=== PATIENT | male | born 1985 | race Caucasian/White ===

== ENCOUNTER 2023-09-13 09:55 | Emergency (ER) | payer OTHER, SELFPAY ==
[2023-09-13 09:57] VITALS: BP 131/76
[2023-09-13 10:09] VITALS: BMI 39.9
[2023-09-13 10:35] LABS: COVID-19 Antigen Negative (Negative)
[2023-09-13] MEDS: TORADOL 30 MG IM (10:37)
--- NOTE | 2023-09-13 10:37 | ED.GENMED ---
History of Present Illness
General
Chief Complaint: Cough
Time Seen by Provider: 09/13/23 10:12
Travel History
Have you had any contact with someone who has COVID-19?: No
Do you have any symptoms of coronavirus? Fever > 100 degrees, chills, cough, shortness of breath, sore throat, loss of taste or smell, muscle aches, or headache?: No
History of Present Illness
History of Present Illness:
38-year-old male presents the emergency department for evaluation of chest tightness associated with URI symptoms and sore throat for the past 2 to 3 days. Was seen in urgent care yesterday and started on clindamycin for uvulitis. States his chest
pain seems to be constant no matter what body position he is and denies any pleuritic nature to the pain. No fevers or chills. Denies any shortness of breath or leg swelling.
Past History
Past History
ED Past Medical History: Asthma, GERD, HTN, Hypercholesterolemia, Psychiatric (Anxiety, Depression. Panic attacks) and Other (Obesity, Barrets esophagus, Gastritis, IBS, Cerebral hematoma, DVT)
ED Past Surgical History: Brain and Other (Craniotomy for subdural hematoma)
Patient has exhibited threatening behavior?: No
PSI?: No
Social History
Tobacco: Smoker
Alcohol: Occasional
Drug: Former user (Opiates, cocaine) and Marijuana
Personal: Single
Living: with family
Employment: Employed
Family History
Family History: Diabetes, Hypertension and CAD (Grandmother with triple bypass); Negative Early CAD
Review of Systems
Review of Systems
Allergies reviewed?: Yes
All Other Systems: ROS reviewed and negative except as documented in HPI and ROS
Phy Exam
Physical Exam
Physical Exam:
GEN: Well appearing, NAD, WDWN
Eyes: PERRLA, EOMs intact, no scleral icterus
HENT: NCAT, oral mucosa moist, uvula erythema and edema quite mild
Lungs: CTAB, no wheezes, rales, rhonchi, normal chest wall excursion
Cardiac: RRR, no M/R/G, no peripheral edema. Radial pulses 2+ bilat
Chest: Reproducible tenderness to the sternum diffusely
Neuro: AO x 3, no focal deficits to BUE/BLE, normal sensation throughout
MSK: No gross deformity or ecchymosis. No edema. No digital clubbing
Skin: No rashes, petechiae. Normal color, no pallor or jaundice.
Psych: Calm, cooperative, proper hygiene
Course
Orders/Labs/Results
Orders:
Orders
09/13/23 09:57
EKG [Electrocardiogram (*1)] Urgent
Reason for Study: Chest Pain
EKG- Treatment ONCE
09/13/23 10:08
CR Chest - 2 Views Urgent
Comment:
Reason For Exam: cough
09/13/23 10:14
COVID-19 Antigen Urgent
Source: Nasal Swab
Influenza A+B Rapid Molecular Urgent
JACK Source: Nasal Swab
Specimen Description:
09/13/23 10:31
Ketorolac [Toradol] 30 mg IM NOW STA
Vital Signs
Initial and Last Documented VS:
Initial Vital Signs
Temp Pulse Resp BP Pulse Ox
98.4 F 83 18 131/76 98
09/13/23 09:57 09/13/23 09:57 09/13/23 09:57 09/13/23 09:57 09/13/23 09:57
Last Documented Vital Signs
Temp Pulse Resp BP Pulse Ox
98.4 F 75 18 150/87 95
09/13/23 09:57 09/13/23 11:19 09/13/23 11:19 09/13/23 11:19 09/13/23 11:19
MDM/Problems Addressed
MDM/Problems Addressed:
Patient's exam is unremarkable. He has reproducible chest wall pain and no EKG changes concerning for pericarditis or myocarditis. Chest x-ray shows no evidence for infiltrate. Likely self-limited viral syndrome with inflammatory chest wall pain.
Discussed supportive care
*Critical Care Note
Total Time (30-74mins, 75-104mins- exclusive of procedures): Not Applicable
ED Attending Note
-
Portions of this chart may have been created with voice recognition software.� Occasional wrong word or��sound alike� substitutions may have occurred due to the inherent limitations of voice recognition software.
Discharge Plan
Departure
Patient Disposition: Home (Routine Discharge)
Date of Disposition: 09/13/23
Time of Disposition: 11:26
Patient with high blood pressure during this ER visit?: No
Discharge Problem:
Acute chest wall pain, Viral URI with cough
Instructions: Costochondritis (DC)
Prescriptions:
New
ketorolac 10 mg tablet
10 mg PO Q8H 5 Days Qty: 15 0RF
No Action
hydrochlorothiazide 25 mg Tablet
25 mg PO DAILY Qty: 0
loratadine 10 MG tablet
10 mg PO DAILY
lorazepam 0.5 MG tablet
0.5 mg PO BIDPRN PRN (Reason: anxiety)
Patient Comments:
05/10/23 filled on 05/09/23 #10
irbesartan 300 mg Tablet
300 mg PO DAILY Qty: 0
metoprolol succinate [Toprol XL] 25 mg Tablet Extended Release 24 Hr
25 mg PO BID
fenofibrate nanocrystallized 145 mg Tablet
145 mg PO DAILY
acetaminophen 500 mg Tablet
1,000 mg PO Q6HPRN PRN (Reason: mild pain)
cholecalciferol (vitamin D3) [Vitamin D3] 125 mcg (5,000 unit) Tablet
125 mcg PO DAILY
fluticasone propionate [Flonase Allergy Relief] 50 mcg/actuation spray,suspension
1 spray intranasal DAILY Qty: 16 0RF
famotidine 20 mg Tablet
20 mg PO DAILY
pantoprazole [Protonix] 40 mg Tablet,Delayed Release (Dr/Ec)
40 mg PO DAILY
zinc 50 mg Capsule
50 mg PO DAILY
vilazodone
1 tab PO DAILY
clindamycin HCl [Cleocin HCl] 300 mg capsule
300 mg PO TID
Referrals:
Mathieu Loyd MD [Family Provider] -
Activity Restrictions/Additional Instructions:
Do not take Ibuprofen, naproxen or aspirin while on the ketorolac
Interventions
Interventions:
*Risk Screen - Suicide Last Done: 09/13/23 09:57
*General Assessment Last Done: 09/13/23 09:57
*Neglect/Abuse Screening Last Done: 09/13/23 09:57
*ED COVID-19 Vaccine History Last Done: 09/13/23 10:09
*Nursing Disposition Last Done: 09/13/23 11:47
ED- Pulmonary Assessment Last Done: 09/13/23 10:21
Discharge Date and Time
Discharge Date/Time: 09/13/23 11:48
[2023-09-13 11:19] VITALS: BP 150/87
== END 2023-09-13 11:48 | disposition home or self-care (01) ==
LOC: EMR 09:55
PROVIDERS: EMERGENCY PHYSICIAN Emergency Medicine; FAMILY PHYSICIAN Family Medicine
DX: R07.89 Other chest pain (principal); J06.9 Acute upper respiratory infection, unspecified; R05.9 Cough, unspecified; F17.200 Nicotine dependence, unspecified, uncomplicated; Z11.52 Encounter for screening for COVID-19
CPT/HCPCS: 99285; 96372; 71046; 87502; 87811; 93005

== ENCOUNTER 2023-09-15 15:12 | Emergency (ER) | payer OTHER, SELFPAY ==
[2023-09-15 15:15] VITALS: BP 115/85
[2023-09-15 16:41] VITALS: BP 116/76
--- NOTE | 2023-09-15 16:51 | ED.GENMED ---
History of Present Illness
General
Chief Complaint: Cold/Flu/URI Symptoms
Time Seen by Provider: 09/15/23 16:47
Travel History
Have you had any contact with someone who has COVID-19?: No
Do you have any symptoms of coronavirus? Fever > 100 degrees, chills, cough, shortness of breath, sore throat, loss of taste or smell, muscle aches, or headache?: No
History of Present Illness
History of Present Illness:
HPI: Patient with URI symptoms over the last several days. He was seen here the other day was given Toradol with no improvement. He has neck pain. He has generalized aches. He did have some chest pain earlier which has since improved.
EXAM:
GENERAL: Well appearing in no distress
HEENT: Moist oral mucosa
CARDIOVASCULAR: No murmurs, normal heart rate and rhythm, No chest wall tenderness
PULMONARY: No respiratory distress, breath sounds are clear and equal
ABDOMEN: Soft with no peritoneal signs, no tenderness
NEUROLOGIC: Excellent strength all extremities, no coordination deficits
PSYCHIATRIC: Appropriate mental status, normal insight and judgement
EXTREMITIES: Nontender, no edema, moves all extremities equally
SKIN: No rash, no lesions
ED COURSE:
5:00 PM: I initially evaluated patient
NUMBER AND COMPLEXITY OF PROBLEMS ADDRESSED AT THE ENCOUNTER
� Chronic conditions affecting care: Smoker, Busby's esophagus, GERD, anxiety/depression, has had intracranial hemorrhage
� Acute Exacerbation and/or Progression of Chronic Illness: This is an acute problem
� Differential Diagnosis includes: Viral syndrome, pneumonia unlikely to sats are normal, he is currently afebrile and had a chest x-ray that was relatively unremarkable
AMOUNT AND/OR COMPLEXITY OF DATA TO BE REVIEWED AND ANALYZED
� I performed an independent evaluation of and my interpretation is:
EKG:
CT:
X-rays:
Laboratory Studies: Influenza negative and COVID-negative 1 09/13/2023
Other:
� Review of other/old records: Chest x-ray from 2 days ago was unremarkable
� Clinical information was obtained by an independent historian: None needed
� Prescriptions/Medications Considered but not given:
� Further testing considered but not performed: Considered CT imaging of the brain however the patient has numerous brain CTs of the last several
RISK OF COMPLICATIONS AND/OR MORBIDITY OR MORTALITY OF PATIENT MANAGEMENT
� Social determinants of health affecting care: Lives at home
� Discussion with other providers:
� Escalation of care including admission/observation vs risk of discharge considered: The patient was given fluids and Tylenol. He white count is normal. I reassessed the patient at 7:40 PM. He tells me that Dr. Norirs suggest
that he may have migraines. We talked about maybe trying Reglan however the patient states that he did not tolerate this medication. He states Toradol has not helped him in the past and did not want to try it again. He was given Tylenol earlier.
Will give a very short course of Fioricet. I encouraged him to follow-up with Dr. Sims. His vital signs have remained normal.
Past History
Past History
ED Past Medical History: Asthma, GERD, HTN, Hypercholesterolemia, Psychiatric (Anxiety, Depression. Panic attacks) and Other (Obesity, Barrets esophagus, Gastritis, IBS, Cerebral hematoma, DVT)
ED Past Surgical History: Brain and Other (Craniotomy for subdural hematoma)
Patient has exhibited threatening behavior?: No
PSI?: No
Social History
Tobacco: Smoker
Alcohol: Occasional
Drug: Former user (Opiates, cocaine) and Marijuana
Personal: Single
Living: with family
Employment: Employed
Family History
Family History: Diabetes, Hypertension and CAD (Grandmother with triple bypass); Negative Early CAD
Phy Exam
Physical Exam
Physical Exam:
See HPI
Course
Orders/Labs/Results
Orders:
Orders
09/15/23 16:49
Comprehensive Metabolic Panel Urgent
09/15/23 16:50
Complete Blood Count/With Diff Urgent
09/15/23 17:22
0.9% Sodium Chloride 1000 ml [Nss] 1,000 ml IV BOLUS
09/15/23 17:23
Acetaminophen [Tylenol] 1,000 mg PO NOW STA
Abnormal Lab Results
09/15/23 09/15/23
16:49 16:50
MPV 10.7 H fL
(7.4-10.4)
Absolute Monos (auto) 0.8 H 10^3/uL
(0.1-0.6)
Monocytes % 9.4 H %
(1.7-9.3)
Glucose 113 H mg/dl
(70-99)
09/15/23 16:50
09/15/23 16:49
Vital Signs
Initial and Last Documented VS:
Initial Vital Signs
Temp Pulse Resp BP Pulse Ox
98.0 F 86 16 115/85 99
09/15/23 15:15 09/15/23 15:15 09/15/23 15:15 09/15/23 15:15 09/15/23 15:15
Last Documented Vital Signs
Temp Pulse Resp BP Pulse Ox
98.0 F 71 13 127/79 94
09/15/23 15:15 09/15/23 19:00 09/15/23 19:00 09/15/23 19:00 09/15/23 19:00
*Critical Care Note
Total Time (30-74mins, 75-104mins- exclusive of procedures): Not Applicable
ED Attending Note
-
Portions of this chart may have been created with voice recognition software.� Occasional wrong word or��sound alike� substitutions may have occurred due to the inherent limitations of voice recognition software.
Discharge Plan
Departure
Patient Disposition: Home (Routine Discharge)
Date of Disposition: 09/15/23
Time of Disposition: 19:41
Patient with high blood pressure during this ER visit?: Yes
Discharge Problem:
Headache
Instructions: Headache, Adult (DC)
Prescriptions:
New
ytlxrcssbu-ckkuglfvkveyt-qjls [Fioricet] 50-300-40 mg capsule
1 cap PO Q8H PRN (Reason: Pain) Qty: 10 0RF
No Action
hydrochlorothiazide 25 mg Tablet
25 mg PO DAILY Qty: 0
loratadine 10 MG tablet
10 mg PO DAILY
lorazepam 0.5 MG tablet
0.5 mg PO BIDPRN PRN (Reason: anxiety)
Patient Comments:
05/10/23 filled on 05/09/23 #10
irbesartan 300 mg Tablet
300 mg PO DAILY Qty: 0
metoprolol succinate [Toprol XL] 25 mg Tablet Extended Release 24 Hr
25 mg PO BID
fenofibrate nanocrystallized 145 mg Tablet
145 mg PO DAILY
acetaminophen 500 mg Tablet
1,000 mg PO Q6HPRN PRN (Reason: mild pain)
cholecalciferol (vitamin D3) [Vitamin D3] 125 mcg (5,000 unit) Tablet
125 mcg PO DAILY
fluticasone propionate [Flonase Allergy Relief] 50 mcg/actuation spray,suspension
1 spray intranasal DAILY Qty: 16 0RF
famotidine 20 mg Tablet
20 mg PO DAILY
pantoprazole [Protonix] 40 mg Tablet,Delayed Release (Dr/Ec)
40 mg PO DAILY
zinc 50 mg Capsule
50 mg PO DAILY
vilazodone
1 tab PO DAILY
clindamycin HCl [Cleocin HCl] 300 mg capsule
300 mg PO TID
ketorolac 10 mg tablet
10 mg PO Q8H 5 Days Qty: 15 0RF
Referrals:
Dwight Sims MD [Active] - Follow up in 5-7 days
Mathieu Loyd MD [Family Provider] -
Activity Restrictions/Additional Instructions:
I recommend you follow with Dr. Sims. Your blood work tonight is normal. Your vital signs are normal.
Interventions
Interventions:
*Risk Screen - Suicide Last Done: 09/15/23 16:51
*General Assessment Last Done: 09/15/23 16:51
*Neglect/Abuse Screening Last Done: 09/15/23 16:51
*ED COVID-19 Vaccine History Last Done: 09/15/23 15:15
ED- Pulmonary Assessment Last Done: 09/15/23 16:52
[2023-09-15 17:00] VITALS: BP 118/83
[2023-09-15 17:06] LABS: % Basophils 0.6 % (0-2); % Eosinophils 2.6 % (0-6); % Immature Granulocytes 0.4 % (0-0.5); % Lymphocytes 29.4 % (20.5-51.1); % Monocytes 9.4 % (1.7-9.3); % Neutrophils 57.6 % (42.2-75.2); Absolute Basophils 0.1 10^3/uL (0-0.2); Absolute Eosinophils 0.2 10^3/uL (0-0.7); Absolute Lymphocytes 2.5 10^3/uL (1.2-3.4); Absolute Monocytes 0.8 10^3/uL (0.1-0.6); Absolute Neutrophils 4.9 10^3/uL (1.4-6.5); Hematocrit 42.6 % (39.0-52.0); Hemoglobin 14.9 g/dL (13.0-18.0); Mean Corpuscular Hgb 30.4 pg (27.0-31.0); Mean Corpuscular Volume 86.9 fL (80.0-94.0); Mean Platelet Volume 10.7 fL (7.4-10.4); Nucleated Red Blood Cells % 0 % (-); Platelet Count 223 10^3/uL (130-400); Red Cell Dist. Width 13.2 % (11.5-14.5); White Blood Cell Count 8.5 10^3/uL (4.8-10.8)
[2023-09-15 17:21] LABS: ALT (SGPT) 20 U/L (0-50); AST (SGOT) 20 U/L (17-59); Albumin 4.5 g/dl (3.5-5.0); Alkaline Phosphatase 51 U/L (38-126); Blood Urea Nitrogen 14 mg/dl (9-20); Calcium 9.9 mg/dl (8.4-10.2); Carbon Dioxide 27 mmol/L (22-30); Chloride 105 mmol/L (98-107); Glucose 113 mg/dl (70-99); Sodium 136 mmol/L (135-145); Total Bilirubin 0.6 mg/dl (0.2-1.3); Total Protein 7.1 g/dl (6.3-8.2); eGFR > 60.00
[2023-09-15 17:24] LABS: Potassium 3.9 mmol/L (3.5-5.1)
[2023-09-15] MEDS: TYLENOL 1000 MG PO (17:40)
[2023-09-15] MEDS: NSS 1000 IV (17:41)
[2023-09-15 18:00] VITALS: BP 127/79
[2023-09-15 19:00] VITALS: BP 127/79
== END 2023-09-15 20:00 | disposition home or self-care (01) ==
LOC: EMR 15:12
PROVIDERS: EMERGENCY PHYSICIAN Emergency Medicine; FAMILY PHYSICIAN Family Medicine
DX: R51.9 Headache, unspecified (principal); R07.89 Other chest pain; E66.9 Obesity, unspecified; E78.00 Pure hypercholesterolemia, unspecified; F32.A Depression, unspecified; F41.9 Anxiety disorder, unspecified; I10 Essential (primary) hypertension; J45.909 Unspecified asthma, uncomplicated; K21.9 Gastro-esophageal reflux disease without esophagitis; K58.9 Irritable bowel syndrome, unspecified; F17.200 Nicotine dependence, unspecified, uncomplicated; Z82.49 Family history of ischemic heart disease and other diseases of the circulatory system; Z83.3 Family history of diabetes mellitus; Z86.718 Personal history of other venous thrombosis and embolism; Z87.19 Personal history of other diseases of the digestive system
CPT/HCPCS: 99283; 96360; 80053; 85025

== ENCOUNTER → 2023-10-18 07:37 | Outpatient (REF) | payer OTHER, SELFPAY ==
--- NOTE | 2023-10-18 13:18 | EEG.RPT ---
Electroencephalogram Report
Recording
Date of EE10/18/23
Type of EEG: Routine
Length of EEG recordin minutes
Done with Video Recording: Yes
Patient Status: Outpatient
Recording Conditions: Awake, Drowsy and Asleep
Hyperventilation Performed: Yes
Photic Stimulation Performed: Yes
Report
GREATER THAN 1 HOUR EEG REPORT
EEG INTERPRETATION:
Unremarkable EEG for age
CLINICAL CORRELATION:
A normal EEG does not rule out a diagnosis of epilepsy. If clinical suspicion for seizure persists, a prolonged recording may be warranted.
Clinical correlation is advised.
METHODS:
A 21 channel digitized electroencephalogram (EEG) was performed in the [facility]. The 10/20 international system of electrode placement was used with ECG and lateral/vertical eye movements recorded. Persyst quantitative EEG
analysis was performed.
ELECTROENCEPHALOGRAPHER IMPRESSION(S):
Quality of study
Good
Background
Unremarkable, well maintained, medium amplitude alpha-frequency and unremarkable anterior-posterior voltage gradient
With eye opening the background activity changed to a low voltage mixture of frequencies.
Sleep
Drowsiness present
Stage 1 and 2 sleep recorded
Hyperventilation
Did not activate the record
Photic Stimulation
Did not activate the record
ECG
Normal sinus rhythm
== END ==
LOC: RCS 07:37
PROVIDERS: ATTENDING PHYSICIAN Nurse Practitioner Adult Health; FAMILY PHYSICIAN Family Medicine
DX: J01.81 Other acute recurrent sinusitis (principal); R20.0 Anesthesia of skin; R20.9 Unspecified disturbances of skin sensation; R47.89 Other speech disturbances
CPT/HCPCS: 70486; 95813; 95886; 95913

== ENCOUNTER 2023-10-27 11:36 | Emergency (ER) | payer OTHER, SELFPAY ==
[2023-10-27] VITALS (7 sets, daily range): BP systolic 120–145; BP diastolic 64–88; BMI 40.8
[2023-10-27 12:13] LABS: % Basophils 0.7 % (0-2); % Eosinophils 2.5 % (0-6); % Immature Granulocytes 0.5 % (0-0.5); % Lymphocytes 21.7 % (20.5-51.1); % Monocytes 8.1 % (1.7-9.3); % Neutrophils 66.5 % (42.2-75.2); Absolute Basophils 0.1 10^3/uL (0-0.2); Absolute Eosinophils 0.2 10^3/uL (0-0.7); Absolute Lymphocytes 1.9 10^3/uL (1.2-3.4); Absolute Monocytes 0.7 10^3/uL (0.1-0.6); Absolute Neutrophils 5.8 10^3/uL (1.4-6.5); Hematocrit 40.9 % (39.0-52.0); Hemoglobin 14.5 g/dL (13.0-18.0); Mean Corp Hgb Conc. 35.5 g/dL (33.0-37.0); Mean Corpuscular Hgb 30.1 pg (27.0-31.0); Mean Platelet Volume 10.3 fL (7.4-10.4); Nucleated Red Blood Cells % 0 % (-); Platelet Count 224 10^3/uL (130-400); Red Blood Cell Count 4.81 10^6/uL (4.70-6.10); Red Cell Dist. Width 13.2 % (11.5-14.5); White Blood Cell Count 8.8 10^3/uL (4.8-10.8)
--- NOTE | 2023-10-27 12:28 | ED.GENMED ---
History of Present Illness
<Cristian Quijano DO - Last Filed: 10/30/23 23:20>
General
Chief Complaint: Chest Pain
Source: patient and spouse
Exam Limitations: none
Time Seen by Provider: 10/27/23 11:53
Nursing documentation reviewed up to this point in time: agreed with
Travel History
Have you had any contact with someone who has COVID-19?: No
Do you have any symptoms of coronavirus? Fever > 100 degrees, chills, cough, shortness of breath, sore throat, loss of taste or smell, muscle aches, or headache?: No
History of Present Illness
History of Present Illness:
38-year-old male presents emergency department complaining of mid to lower chest pain rating to his back. He gets heartburn frequently, but then he drank water and began to cough and developed worse pain. He still has some pain that is
dissipating. He took 2x 81 mg aspirins.
Past History
<Cristian Quijano, DO - Last Filed: 10/30/23 23:20>
Past History
ED Past Medical History: Asthma, GERD, HTN, Hypercholesterolemia, Psychiatric (Anxiety, Depression. Panic attacks) and Other (Obesity, Barrets esophagus, Gastritis, IBS, Cerebral hematoma, DVT)
ED Past Surgical History: Brain, Cardiac (Cardiac catheterization 2 years ago that was normal) and Other (Craniotomy for subdural hematoma)
Patient has exhibited threatening behavior?: No
PSI?: No
Social History
Tobacco: Smoker
Alcohol: Occasional
Drug: Former user (Opiates, cocaine) and Marijuana
Personal: Single
Living: with family
Employment: Employed
Family History
Family History: Diabetes, Hypertension and CAD (Grandmother with triple bypass); Negative Early CAD
Review of Systems
<DO Wolf El Last Filed: 10/30/23 23:20>
Review of Systems
Allergies reviewed?: Yes
All Other Systems: Not applicable
Constitutional: Reports no symptoms
EENT: Reports no symptoms
Respiratory: Reports no symptoms
Cardiac: Reports chest pain
ABD/GI: Reports no symptoms
: Reports no symptoms
Musculoskeletal: Reports no symptoms
Skin: Reports no symptoms
Neurological: Reports no symptoms
Endocrine: Reports no symptoms
Hematologic/Lymphatic: Reports no symptoms
Psychiatric: Reports no symptoms
Phy Exam
<Cristian Quijano, DO - Last Filed: 10/30/23 23:20>
Physical Exam
Physical Exam:
Physical Exam
General: no apparent distress, not acutely ill
Neck: supple. no meningeal signs. normal posterior pharynx
Heart: s1/s2 regular rate and rhythm, no murmur. equal radial
pulses.
HEENT: Pupils equal round reactive to light, EOMI
Lungs: no acute respiratory distress. clear bilaterally
Abdomen: normal bowel sounds. not tender. no CVAT
Neuro: alert and oriented. no focal neurological deficits cranial nerves II through XII intact
Skin: no rash
Psychiatric: well kept. interactive and cooperative
Extremities: no edema. no calf tenderness. negative homans. good distal pulses
Scores
<Cristian Quijano, DO - Last Filed: 10/30/23 23:20>
Heart Score for Chest Pain Patients
Heart Score for Chest Pain Patients: 0
Heart Score Risk: 2.5% MACE over next 6 weeks
<Sathya Robison, DO - Last Filed: 10/27/23 23:33>
Heart Score for Chest Pain Patients
STEMI patient?: No
History: Slightly or Non-Suspicious
ECG: Normal
Age: </= 45 years
Risk Factors: No Risk Factors
Troponin: </= Normal Limit
Heart Score for Chest Pain Patients: 0
Heart Score Risk: 2.5% MACE over next 6 weeks
Course
<Cristian Quijano, DO - Last Filed: 10/30/23 23:20>
Orders/Labs/Results
Orders:
Orders
10/27/23 11:38
Electrocardiogram (*1) Urgent
Reason for Study: Chest Pain
EKG- Treatment ONCE
10/27/23 11:54
Complete Blood Count/With Diff Urgent
Comprehensive Metabolic Panel Urgent
Troponin I Urgent
10/27/23 15:02
EKG [Electrocardiogram (*1)] Urgent
Reason for Study: Chest Pain
10/27/23 15:03
EKG- Treatment ONCE
10/27/23 15:06
Troponin I Urgent
10/27/23 15:12
Acetaminophen [Tylenol] 650 mg .ROUTE .STK-MED ONE
10/27/23 15:22
Acetaminophen [Tylenol] 650 mg PO NOW STA
Abnormal Lab Results
10/27/23
11:54
Absolute Monos (auto) 0.7 H 10^3/uL
(0.1-0.6)
Glucose 165 H mg/dl
(70-99)
10/27/23 11:54
10/27/23 11:54
Vital Signs
Initial and Last Documented VS:
Initial Vital Signs
Temp
98.2 F
10/27/23 11:40
Last Documented Vital Signs
Temp Pulse Resp BP Pulse Ox
98.2 F 83 18 120/64 95
10/27/23 11:40 10/27/23 17:17 10/27/23 17:23 10/27/23 17:17 10/27/23 17:23
<Sathya Robison DO - Last Filed: 10/27/23 23:33>
Orders/Labs/Results
Orders:
Orders
10/27/23 11:38
Electrocardiogram (*1) Urgent
Reason for Study: Chest Pain
EKG- Treatment ONCE
10/27/23 11:54
Complete Blood Count/With Diff Urgent
Comprehensive Metabolic Panel Urgent
Troponin I Urgent
10/27/23 15:02
EKG [Electrocardiogram (*1)] Urgent
Reason for Study: Chest Pain
10/27/23 15:03
EKG- Treatment ONCE
10/27/23 15:06
Troponin I Urgent
10/27/23 15:12
Acetaminophen [Tylenol] 650 mg .ROUTE .STK-MED ONE
10/27/23 15:22
Acetaminophen [Tylenol] 650 mg PO NOW STA
Abnormal Lab Results
10/27/23
11:54
Absolute Monos (auto) 0.7 H 10^3/uL
(0.1-0.6)
Glucose 165 H mg/dl
(70-99)
10/27/23 11:54
10/27/23 11:54
Vital Signs
Initial and Last Documented VS:
Initial Vital Signs
Temp
98.2 F
10/27/23 11:40
Last Documented Vital Signs
Temp Pulse Resp BP Pulse Ox
98.2 F 83 18 120/64 95
10/27/23 11:40 10/27/23 17:17 10/27/23 17:23 10/27/23 17:17 10/27/23 17:23
<Cristian Quijano, DO - Last Filed: 10/30/23 23:20>
MDM/Problems Addressed
Differential Diagnosis Includes:
ACS, PE
MDM/Problems Addressed:
38-year-old male with chest pain, unclear etiology. Troponins negative, stable for discharge. Do not suspect PE
Chronic conditions affecting care: Other (TBI)
Acute Exacerbation and/or Progression of Chronic Illness: Other (tBI)
<Cristian Quijano, DO - Last Filed: 10/30/23 23:20>
*Pulse Oximetry
Patient hypoxic: no
*EKG
Interpreted by ED Provider?: Yes
EKG Intrepretation Date: 10/27/23
EKG Intrepretation Time: 11:59
Interpretation: normal
Comparison EKG: no changes
Heart Rate: 76
Rate: normal
Rhythm: sinus
[place]: normal axis
Interval: normal interval
QRS Pattern: normal QRS
Ischemia: no ischemia
*Armored Car Guard Interpretation
Rate: Armored Car Guard- N/A
<Sathya Robison, DO - Last Filed: 10/27/23 23:33>
*Critical Care Note
Total Time (30-74mins, 75-104mins- exclusive of procedures): Not Applicable
ED Attending Note
<Cristian Quijano, DO - Last Filed: 10/30/23 23:20>
-
Portions of this chart may have been created with voice recognition software.� Occasional wrong word or��sound alike� substitutions may have occurred due to the inherent limitations of voice recognition software.
Discharge Plan
Departure
Patient Disposition: Home (Routine Discharge)
Date of Disposition: 10/27/23
Time of Disposition: 16:40
Patient with high blood pressure during this ER visit?: Yes
Covid-19: Not Applicable
Discharge Problem:
Chest pain
Instructions: Chest Pain PCP Follow Up
Prescriptions:
No Action
hydrochlorothiazide 25 mg Tablet
25 mg PO DAILY Qty: 0
loratadine 10 MG tablet
10 mg PO DAILY
lorazepam 0.5 MG tablet
0.5 mg PO BIDPRN PRN (Reason: anxiety)
Patient Comments:
05/10/23 filled on 05/09/23 #10
irbesartan 300 mg Tablet
300 mg PO DAILY Qty: 0
metoprolol succinate [Toprol XL] 25 mg Tablet Extended Release 24 Hr
25 mg PO BID
fenofibrate nanocrystallized 145 mg Tablet
145 mg PO DAILY
acetaminophen 500 mg Tablet
1,000 mg PO Q6HPRN PRN (Reason: mild pain)
cholecalciferol (vitamin D3) [Vitamin D3] 125 mcg (5,000 unit) Tablet
125 mcg PO DAILY
fluticasone propionate [Flonase Allergy Relief] 50 mcg/actuation spray,suspension
1 spray intranasal DAILY Qty: 16 0RF
famotidine 20 mg Tablet
20 mg PO DAILY
pantoprazole [Protonix] 40 mg Tablet,Delayed Release (Dr/Ec)
40 mg PO DAILY
zinc 50 mg Capsule
50 mg PO DAILY
vilazodone
1 tab PO DAILY
clindamycin HCl [Cleocin HCl] 300 mg capsule
300 mg PO TID
ketorolac 10 mg tablet
10 mg PO Q8H 5 Days Qty: 15 0RF
dnrapjtvtj-rmombrbgzfqqy-irjw [Fioricet] 50-300-40 mg capsule
1 cap PO Q8H PRN (Reason: Pain) Qty: 10 0RF
Referrals:
Mathieu Loyd MD [Family Provider] - Next open appointment
Interventions
Interventions:
*Risk Screen - Suicide Last Done: 10/27/23 11:40
*General Assessment Last Done: 10/27/23 11:40
*Neglect/Abuse Screening Last Done: 10/27/23 11:40
ED- Fall Risk Assessment Last Done: 10/27/23 15:39
*ED COVID-19 Vaccine History Last Done: 10/27/23 11:40
*Nursing Disposition Last Done: 10/27/23 17:24
ED- Cardiac Assessment Last Done: 10/27/23 15:39
Discharge Date and Time
Discharge Date/Time: 10/27/23 17:24
Print Language: ROMANIAN
[2023-10-27 12:31] LABS: ALT (SGPT) 17 U/L (0-50); AST (SGOT) 19 U/L (17-59); Albumin 4.3 g/dl (3.5-5.0); Alkaline Phosphatase 46 U/L (38-126); Blood Urea Nitrogen 15 mg/dl (9-20); Calcium 9.7 mg/dl (8.4-10.2); Carbon Dioxide 27 mmol/L (22-30); Chloride 101 mmol/L (98-107); Estimated Creatinine Clearance > 125 ml/min; Glucose 165 mg/dl (70-99); Sodium 136 mmol/L (135-145); Total Bilirubin 0.7 mg/dl (0.2-1.3); Total Protein 6.5 g/dl (6.3-8.2); eGFR > 60.00
[2023-10-27 12:35] LABS: Troponin I < 0.012 ng/ml
[2023-10-27] MEDS: TYLENOL 650 MG PO (15:22)
[2023-10-27 15:46] LABS: Troponin I < 0.012 ng/ml
== END 2023-10-27 17:24 | disposition home or self-care (01) ==
LOC: EMR 11:36
PROVIDERS: EMERGENCY PHYSICIAN Emergency Medicine; FAMILY PHYSICIAN Family Medicine
DX: R07.89 Other chest pain (principal); R05.9 Cough, unspecified; I10 Essential (primary) hypertension; E78.00 Pure hypercholesterolemia, unspecified; K21.9 Gastro-esophageal reflux disease without esophagitis; J45.909 Unspecified asthma, uncomplicated; E11.9 Type 2 diabetes mellitus without complications; F41.9 Anxiety disorder, unspecified; F32.A Depression, unspecified; F41.0 Panic disorder [episodic paroxysmal anxiety]; K58.9 Irritable bowel syndrome, unspecified; K22.70 Barrett's esophagus without dysplasia; F17.210 Nicotine dependence, cigarettes, uncomplicated; Z86.718 Personal history of other venous thrombosis and embolism; Z88.6 Allergy status to analgesic agent; Z88.1 Allergy status to other antibiotic agents; Z88.0 Allergy status to penicillin; Z88.2 Allergy status to sulfonamides
CPT/HCPCS: 99284; 80053; 84484; 85025; 93005

== ENCOUNTER 2023-11-25 21:57 | Emergency (ER) | payer OTHER, SELFPAY ==
[2023-11-25 22:01] VITALS: BP 132/82
--- NOTE | 2023-11-26 02:04 | ED.GENMED ---
History of Present Illness
<Sumanth Wren DO - Last Filed: 11/26/23 04:18>
General
Chief Complaint: Dental Problem
Time Seen by Provider: 11/26/23 02:04
<ELLEN Kovacs - Last Filed: 11/26/23 06:03>
General
Source: patient
Exam Limitations: none
Travel History
Have you had any contact with someone who has COVID-19?: No
Do you have any symptoms of coronavirus? Fever > 100 degrees, chills, cough, shortness of breath, sore throat, loss of taste or smell, muscle aches, or headache?: No
History of Present Illness
History of Present Illness:
This is a 38-year-old male presenting for right upper molar pain. He was seen by his dentist recently and started on clindamycin 150mg bid. He is scheduled to have his tooth removed tomorrow but has been experiencing increasing jaw pain which
radiates to his upper face he denies nausea vomiting fever, and chills.
Past History
<ELLEN Kovacs - Last Filed: 11/26/23 06:03>
Past History
ED Past Medical History: Asthma, GERD, HTN, Hypercholesterolemia, Psychiatric (Anxiety, Depression. Panic attacks) and Other (Obesity, Barrets esophagus, Gastritis, IBS, Cerebral hematoma, DVT)
ED Past Surgical History: Brain, Cardiac (Cardiac catheterization 2 years ago that was normal) and Other (Craniotomy for subdural hematoma)
Patient has exhibited threatening behavior?: No
PSI?: No
Social History
Tobacco: Smoker
Alcohol: Occasional
Drug: Former user (Opiates, cocaine) and Marijuana
Personal: Single
Living: with family
Employment: Employed
Family History
Family History: Diabetes, Hypertension and CAD (Grandmother with triple bypass); Negative Early CAD
Review of Systems
<ELLEN Kovacs - Last Filed: 11/26/23 06:03>
Review of Systems
Allergies reviewed?: Yes
Constitutional: Reports no symptoms
EENT: Reports mouth pain
Respiratory: Reports no symptoms
Cardiac: Reports no symptoms
ABD/GI: Reports no symptoms
Skin: Reports no symptoms
Phy Exam
<Ritesh Campbell [facility] - Last Filed: 11/26/23 06:03>
General Physical Exam
General Presentation: well appearing
General age: appears stated age
General Skin: warm and dry
General Habitus: normal
General Mental: alert
Pulmonary Exam
Pulmonary Exam: lungs clear and no respiratory distress
Neurological Exam
Neurological Exam: alert and oriented x3
Course
<Sumanth Wren DO - Last Filed: 11/26/23 04:18>
Orders/Labs/Results
Orders:
Orders
11/26/23 00:03
CT Facial Bones W/ Iv Contrast Urgent
Reason For Exam: RIGHT UPPER DENTAL PAIN
11/26/23 02:13
Complete Blood Count/With Diff Urgent
Comprehensive Metabolic Panel Urgent
11/26/23 03:48
Acetaminophen [Tylenol] 1,000 mg PO NOW STA
Clindamycin HCl [Cleocin] 450 mg PO NOW STA
Abnormal Lab Results
11/26/23 11/26/23
02:13 03:39
Absolute Lymphs (auto) 3.6 H 10^3/uL
(1.2-3.4)
Absolute Monos (auto) 0.7 H 10^3/uL
(0.1-0.6)
Glucose 130 H mg/dl
(70-99)
POC Glucose 152 H mg/dl
(70-99)
11/26/23 02:13
11/26/23 02:13
Vital Signs
Initial and Last Documented VS:
Initial Vital Signs
Temp Pulse Resp BP Pulse Ox
98.2 F 82 22 132/82 97
11/25/23 22:01 11/25/23 22:01 11/25/23 22:01 11/25/23 22:01 11/25/23 22:01
Last Documented Vital Signs
Temp Pulse Resp BP Pulse Ox
98.2 F 65 20 130/87 95
11/25/23 22:01 11/26/23 04:15 11/26/23 04:15 11/26/23 04:00 11/26/23 04:15
<ELLEN Kovacs - Last Filed: 11/26/23 06:03>
Orders/Labs/Results
Orders:
Orders
11/26/23 00:03
CT Facial Bones W/ Iv Contrast Urgent
Reason For Exam: RIGHT UPPER DENTAL PAIN
11/26/23 02:13
Complete Blood Count/With Diff Urgent
Comprehensive Metabolic Panel Urgent
11/26/23 03:48
Acetaminophen [Tylenol] 1,000 mg PO NOW STA
Clindamycin HCl [Cleocin] 450 mg PO NOW STA
Abnormal Lab Results
11/26/23 11/26/23
02:13 03:39
Absolute Lymphs (auto) 3.6 H 10^3/uL
(1.2-3.4)
Absolute Monos (auto) 0.7 H 10^3/uL
(0.1-0.6)
Glucose 130 H mg/dl
(70-99)
POC Glucose 152 H mg/dl
(70-99)
11/26/23 02:13
11/26/23 02:13
Vital Signs
Initial and Last Documented VS:
Initial Vital Signs
Temp Pulse Resp BP Pulse Ox
98.2 F 82 22 132/82 97
11/25/23 22:01 11/25/23 22:01 11/25/23 22:01 11/25/23 22:01 11/25/23 22:01
Last Documented Vital Signs
Temp Pulse Resp BP Pulse Ox
98.2 F 65 20 130/87 95
11/25/23 22:01 11/26/23 04:15 11/26/23 04:15 11/26/23 04:00 11/26/23 04:15
<ELLEN Kovacs - Last Filed: 11/26/23 06:03>
MDM/Problems Addressed
Differential Diagnosis Includes:
Dental abcess
MDM/Problems Addressed:
Patient has a dental abscess of which his dentist is aware of and is treating with clindamycin 150 bid. He is scheduled for treatment tomorrow. Will increase the dose of clindamycin and get CT facial bones.
-Patient discharged with increased clindamycin dose
<ELLEN Kovacs - Last Filed: 11/26/23 06:03>
*Critical Care Note
Total Time (30-74mins, 75-104mins- exclusive of procedures): Not Applicable
<Sumanth Wren DO - Last Filed: 11/26/23 04:18>
Update Note
Update Note:
CT FACE
IMPRESSION:
Comparison with 06/21/23.
Interval resolution of right facial soft tissue gas.
No subcutaneous gas or evidence of abscess formation in the facial soft tissues.
R maxillary periapical lucencies.
No evidence of acute facial fracture.
No intraorbital hematoma. Globes are symmetric.
Middle ear ossicles are aligned.
Case finalized at 412am ET
ED Attending Note
<Sumanth Wren DO - Last Filed: 11/26/23 04:18>
ED Attending Note
Patient seen and examined by attending physician: Yes
I performed the substantive portion of visit, reviewed & personally made and approve the management plan that is documented in note by myself or CANDIDA.: Yes
ED Attending Note:
Pleasant 38-year-old male that presents with right upper molar pain. Patient was seen by his dentist and started on clindamycin. Patient has been taking 150 mg of clindamycin twice a day. He states that he is due to have the tooth removed
tomorrow. Patient concerned because they feels the pain is spreading to his upper face. Denies fever or chills. Reports no nausea or vomiting.
<ELLEN Kovacs - Last Filed: 11/26/23 06:03>
-
Portions of this chart may have been created with voice recognition software.� Occasional wrong word or��sound alike� substitutions may have occurred due to the inherent limitations of voice recognition software.
Discharge Plan
Departure
Patient Disposition: Home (Routine Discharge)
Date of Disposition: 11/26/23
Time of Disposition: 04:16
Patient with high blood pressure during this ER visit?: Yes
Condition: Good
Discharge Problem:
Pain, dental
Instructions: Tooth Decay, Adult (DC), Dental Pain (DC), BLOOD PRESSURE
Prescriptions:
New
clindamycin HCl 150 mg capsule
450 mg PO QID 10 Days Qty: 120 0RF
No Action
hydrochlorothiazide 25 mg Tablet
25 mg PO DAILY Qty: 0
loratadine 10 MG tablet
10 mg PO DAILY
lorazepam 0.5 MG tablet
0.5 mg PO BIDPRN PRN (Reason: anxiety)
Patient Comments:
05/10/23 filled on 05/09/23 #10
irbesartan 300 mg Tablet
300 mg PO DAILY Qty: 0
metoprolol succinate [Toprol XL] 25 mg Tablet Extended Release 24 Hr
25 mg PO BID
fenofibrate nanocrystallized 145 mg Tablet
145 mg PO DAILY
acetaminophen 500 mg Tablet
1,000 mg PO Q6HPRN PRN (Reason: mild pain)
cholecalciferol (vitamin D3) [Vitamin D3] 125 mcg (5,000 unit) Tablet
125 mcg PO DAILY
fluticasone propionate [Flonase Allergy Relief] 50 mcg/actuation spray,suspension
1 spray intranasal DAILY Qty: 16 0RF
famotidine 20 mg Tablet
20 mg PO DAILY
pantoprazole [Protonix] 40 mg Tablet,Delayed Release (Dr/Ec)
40 mg PO DAILY
zinc 50 mg Capsule
50 mg PO DAILY
vilazodone
1 tab PO DAILY
clindamycin HCl [Cleocin HCl] 300 mg capsule
300 mg PO TID
ketorolac 10 mg tablet
10 mg PO Q8H 5 Days Qty: 15 0RF
kfoxgrkqzd-lhnhxurcqdutn-idkp [Fioricet] 50-300-40 mg capsule
1 cap PO Q8H PRN (Reason: Pain) Qty: 10 0RF
Referrals:
Mathieu Loyd MD [Family Provider] -
Activity Restrictions/Additional Instructions:
As discussed, please see your dentist at your previously scheduled appointment.
It was a pleasure meeting you and taking part in your care. We hope for your continued healing and wellness.
Please read discharge instructions in their entirety. However, they are for general education and may not describe your exact diagnosis at discharge. Information on your ER visit and medical conditions were discussed with you along with appropriate
follow up information...
If indicated, please take your medications as instructed and indicated on discharge paperwork.
Please schedule a follow up appointment as directed. Call to schedule an appointment
Please return to the emergency department with ANY change in, persisting, or worsening of symptoms. If any of your symptoms do not improve, or persist, or become more severe within 6-12 hours, please return to the emergency department for further
care.
Please return to the emergency department if you develop a headache, neck pain/stiffness, fever greater than 100.4F, chest pain, shortness of breath, persistent nausea, vomiting, slurred speech, difficulty walking, numbness/tingling, weakness, signs
of infection or any other symptoms that are worrisome to you.
If you have any questions or concerns please do not hesitate to call the Hospital at or E-mail me directly at [email or web address]
Interventions
Interventions:
*Risk Screen - Suicide Last Done: 11/25/23 22:01
*General Assessment Last Done: 11/26/23 02:28
*Neglect/Abuse Screening Last Done: 11/25/23 22:01
ED- Fall Risk Assessment Last Done: 11/26/23 02:28
*ED COVID-19 Vaccine History Last Done: 11/26/23 02:28
*Nursing Disposition Last Done: 11/26/23 04:42
Discharge Date and Time
Discharge Date/Time: 11/26/23 04:44
Print Language: CITIZEN OF [place]
[2023-11-26 02:23] VITALS: BP 138/83
[2023-11-26 02:51] LABS: % Basophils 0.6 % (0-2); % Eosinophils 3.2 % (0-6); % Immature Granulocytes 0.4 % (0-0.5); % Lymphocytes 42.6 % (20.5-51.1); % Neutrophils 45.2 % (42.2-75.2); Absolute Basophils 0.1 10^3/uL (0-0.2); Absolute Eosinophils 0.3 10^3/uL (0-0.7); Absolute Lymphocytes 3.6 10^3/uL (1.2-3.4); Absolute Monocytes 0.7 10^3/uL (0.1-0.6); Absolute Neutrophils 3.8 10^3/uL (1.4-6.5); Hematocrit 41.2 % (39.0-52.0); Hemoglobin 14.6 g/dL (13.0-18.0); Mean Corp Hgb Conc. 35.4 g/dL (33.0-37.0); Mean Corpuscular Hgb 30.1 pg (27.0-31.0); Mean Corpuscular Volume 84.9 fL (80.0-94.0); Mean Platelet Volume 10.4 fL (7.4-10.4); Nucleated Red Blood Cells % 0 % (-); Platelet Count 235 10^3/uL (130-400); Red Blood Cell Count 4.85 10^6/uL (4.70-6.10); Red Cell Dist. Width 12.8 % (11.5-14.5); White Blood Cell Count 8.5 10^3/uL (4.8-10.8)
[2023-11-26 03:00] VITALS: BP 137/84
[2023-11-26 03:07] LABS: ALT (SGPT) 16 U/L (0-50); AST (SGOT) 17 U/L (17-59); Albumin 4.5 g/dl (3.5-5.0); Alkaline Phosphatase 45 U/L (38-126); Blood Urea Nitrogen 20 mg/dl (9-20); Calcium 9.8 mg/dl (8.4-10.2); Carbon Dioxide 28 mmol/L (22-30); Chloride 103 mmol/L (98-107); Glucose 130 mg/dl (70-99); Potassium 4.1 mmol/L (3.5-5.1); Sodium 137 mmol/L (135-145); Total Bilirubin 0.5 mg/dl (0.2-1.3); eGFR > 60.00
[2023-11-26 03:36] VITALS: BP 136/80
[2023-11-26 03:42] LABS: Glucose - Point of Care 152 mg/dl (70-99)
[2023-11-26] MEDS: TYLENOL 1000 MG PO (03:53)
[2023-11-26] MEDS: CLEOCIN 450 MG PO (03:53)
[2023-11-26 04:00] VITALS: BP 130/87
== END 2023-11-26 04:44 | disposition home or self-care (01) ==
LOC: EMR 21:57
PROVIDERS: EMERGENCY PHYSICIAN Student in an Organized Health Care Education/Training Program; FAMILY PHYSICIAN Family Medicine
DX: K08.89 Other specified disorders of teeth and supporting structures (principal); K04.7 Periapical abscess without sinus; R68.84 Jaw pain; I10 Essential (primary) hypertension; K21.9 Gastro-esophageal reflux disease without esophagitis; E78.00 Pure hypercholesterolemia, unspecified; F32.A Depression, unspecified; F41.9 Anxiety disorder, unspecified; J45.909 Unspecified asthma, uncomplicated; K58.9 Irritable bowel syndrome, unspecified; F41.0 Panic disorder [episodic paroxysmal anxiety]; K22.70 Barrett's esophagus without dysplasia; E66.9 Obesity, unspecified; F17.200 Nicotine dependence, unspecified, uncomplicated; Z86.718 Personal history of other venous thrombosis and embolism; Z88.6 Allergy status to analgesic agent; Z88.1 Allergy status to other antibiotic agents; Z88.0 Allergy status to penicillin; Z88.2 Allergy status to sulfonamides
CPT/HCPCS: 99285; 70487; 80053; 82962; 85025; Q9967

== ENCOUNTER → 2023-12-03 13:33 | Outpatient (REF) | payer OTHER, SELFPAY | LOC: HWRCS 13:33 | PROVIDERS: ATTENDING PHYSICIAN Internal Medicine Cardiovascular Disease; FAMILY PHYSICIAN Family Medicine | DX: I47.11 Inappropriate sinus tachycardia, so stated (principal); I10 Essential (primary) hypertension; E78.5 Hyperlipidemia, unspecified; R00.0 Tachycardia, unspecified | CPT/HCPCS: 93306 ==

== ENCOUNTER → 2023-12-13 10:42 | Outpatient (REF) | payer OTHER, SELFPAY | LOC: RCS 10:42 | PROVIDERS: ATTENDING PHYSICIAN Internal Medicine Cardiovascular Disease; FAMILY PHYSICIAN Family Medicine | DX: I10 Essential (primary) hypertension (principal) | CPT/HCPCS: 93017 ==

== ENCOUNTER 2024-02-04 07:45 | Emergency (ER) | payer OTHER, SELFPAY ==
[2024-02-04 07:46] VITALS: BP 148/98
--- NOTE | 2024-02-04 08:43 | ED.GENMED ---
History of Present Illness
<Rere Finnegan PA-C - Last Filed: 02/04/24 15:13>
General
Chief Complaint: Breathing Problem
Source: patient
Time Seen by Provider: 02/04/24 08:19
History of Present Illness
History of Present Illness:
38yoF with a history of hypertension, inappropriate sinus tachycardia, GERD, IBS, and prior traumatic subdural hematoma in 2006 presenting for concern for possible aspiration. Patient reports being intoxicated yesterday evening when he went to bed.
He woke up this morning around 7:30 AM with a burning sensation in his chest with reflux. He states he was choking and started coughing. Since then, patient has been having chest discomfort. He states every time he takes a deep breath he feels
he has to cough. He is worried that he may have aspirated. He also was having nausea and had 2-3 episodes of vomiting.
Past History
<Rere Finnegan PA-C - Last Filed: 02/04/24 15:13>
Past History
ED Past Medical History: Asthma, GERD, HTN, Hypercholesterolemia, Psychiatric (Anxiety, Depression. Panic attacks) and Other (Obesity, Barrets esophagus, Gastritis, IBS, Cerebral hematoma, DVT)
ED Past Surgical History: Brain, Cardiac (Cardiac catheterization 2 years ago that was normal) and Other (Craniotomy for subdural hematoma)
Patient has exhibited threatening behavior?: No
PSI?: No
Social History
Tobacco: Smoker
Alcohol: Occasional
Drug: Former user (Opiates, cocaine) and Marijuana
Personal: Single
Living: with family
Employment: Employed
Family History
Family History: Diabetes, Hypertension and CAD (Grandmother with triple bypass); Negative Early CAD
Phy Exam
<Rere Finnegan PA-C - Last Filed: 02/04/24 15:13>
General Physical Exam
General Presentation: well appearing and no apparent distress
General age: appears stated age
General Skin: warm and dry
General Habitus: normal
General Mental: alert
General Hydration: appears well hydrated
Cardiovascular Exam
Cardiovascular Exam: regular rate/rhythm, no edema and no murmur
Pulmonary Exam
Pulmonary Exam: no respiratory distress, no crackles and generalized wheezing (Expiratory wheezes throughout. Speaking in full sentences without difficulty. )
Skin Exam
Skin Exam: normal color and warm/dry
Psychiatric Exam
Psychiatric Exam: normal mood/affect
Course
<Rere Finnegan PA-C - Last Filed: 02/04/24 15:13>
Orders/Labs/Results
Orders:
Orders
02/04/24 08:42
Electrocardiogram (*1) Urgent
Reason for Study: Chest Pain
EKG- Treatment ONCE
0.9% Sodium Chloride 1000 ml [Nss] 1,000 ml IV BOLUS
Famotidine [Pepcid] 20 mg IV NOW STA
Ondansetron Injectable [Zofran] 4 mg IV NOW STA
CR Chest - 2 Views Urgent
Comment:
Reason For Exam: Cough, CP, concern for aspiration
02/04/24 08:52
Complete Blood Count/With Diff Urgent
Comprehensive Metabolic Panel Urgent
Troponin I Urgent
02/04/24 10:46
Albuterol Nebs [Ventolin Nebules] 5 mg INH R NOW STA
02/04/24 11:15
D-Dimer Urgent
Troponin I Urgent
02/04/24 12:19
Electrocardiogram (*1) Urgent
Reason for Study: Chest Pain
EKG- Treatment ONCE
02/04/24 13:01
Ipratropium/Albuterol Sulfate [Duoneb] 3 ml INH R NOW STA
02/04/24 13:48
Dexamethasone [Decadron] 10 mg PO NOW STA
Abnormal Lab Results
02/04/24
08:52
MPV 10.9 H fL
(7.4-10.4)
Abs Immat Gran (auto) 0.1 H 10^3/uL
(0-0.05)
Absolute Monos (auto) 0.8 H 10^3/uL
(0.1-0.6)
Glucose 210 H mg/dl
(70-99)
02/04/24 08:52
02/04/24 08:52
Vital Signs
Initial and Last Documented VS:
Initial Vital Signs
Temp Pulse Resp BP Pulse Ox
99.6 F 109 18 148/98 94
02/04/24 07:46 02/04/24 07:46 02/04/24 07:46 02/04/24 07:46 02/04/24 07:46
Last Documented Vital Signs
Temp Pulse Resp BP Pulse Ox
99.6 F 87 18 136/94 93
02/04/24 07:46 02/04/24 12:30 02/04/24 12:30 02/04/24 13:00 02/04/24 13:30
<Sathya Robison, DO - Last Filed: 02/04/24 13:42>
Orders/Labs/Results
Orders:
Orders
02/04/24 08:42
Electrocardiogram (*1) Urgent
Reason for Study: Chest Pain
EKG- Treatment ONCE
0.9% Sodium Chloride 1000 ml [Nss] 1,000 ml IV BOLUS
Famotidine [Pepcid] 20 mg IV NOW STA
Ondansetron Injectable [Zofran] 4 mg IV NOW STA
CR Chest - 2 Views Urgent
Comment:
Reason For Exam: Cough, CP, concern for aspiration
02/04/24 08:52
Complete Blood Count/With Diff Urgent
Comprehensive Metabolic Panel Urgent
Troponin I Urgent
02/04/24 10:46
Albuterol Nebs [Ventolin Nebules] 5 mg INH R NOW STA
02/04/24 11:15
D-Dimer Urgent
Troponin I Urgent
02/04/24 12:19
Electrocardiogram (*1) Urgent
Reason for Study: Chest Pain
EKG- Treatment ONCE
02/04/24 13:01
Ipratropium/Albuterol Sulfate [Duoneb] 3 ml INH R NOW STA
02/04/24 13:48
Dexamethasone [Decadron] 10 mg PO NOW STA
Abnormal Lab Results
02/04/24
08:52
MPV 10.9 H fL
(7.4-10.4)
Abs Immat Gran (auto) 0.1 H 10^3/uL
(0-0.05)
Absolute Monos (auto) 0.8 H 10^3/uL
(0.1-0.6)
Glucose 210 H mg/dl
(70-99)
02/04/24 08:52
02/04/24 08:52
Vital Signs
Initial and Last Documented VS:
Initial Vital Signs
Temp Pulse Resp BP Pulse Ox
99.6 F 109 18 148/98 94
02/04/24 07:46 02/04/24 07:46 02/04/24 07:46 02/04/24 07:46 02/04/24 07:46
Last Documented Vital Signs
Temp Pulse Resp BP Pulse Ox
99.6 F 87 18 136/94 93
02/04/24 07:46 02/04/24 12:30 02/04/24 12:30 02/04/24 13:00 02/04/24 13:30
[place];Rere Finnegan PA-C - Last Filed: 02/04/24 15:13>
MDM/Problems Addressed
Differential Diagnosis Includes:
38yoM here with concern for aspiration. Woke up with coughing/choking this morning. C/o pleuritic chest discomfort. No fevers. He is afebrile and hemodynamically stable. He is non-toxic appearing in no distress. Expiratory wheezes present on lung
exam. Remainder of exam is reassuring. Differential diagnosis includes but is not limited to: Pneumonia, pneumothorax, asthma exacerbation, chest wall pain, less likely ACS
Initial ED plan: Check cardiac labs, EKG, and chest x-ray. IV Zofran, Pepcid, and fluid bolus for symptoms.
<Rere Finnegan PA-C - Last Filed: 02/04/24 15:13>
*EKG
Interpreted by ED Provider?: Yes
EKG Intrepretation Date: 02/04/24
Heart Rate: 87
Rate: normal
Rhythm: sinus
[place]: normal axis
Interval: normal interval
QRS Pattern: normal QRS
Ischemia: no ischemia
*Critical Care Note
Total Time (30-74mins, 75-104mins- exclusive of procedures): Not Applicable
<Rere Finnegan PA-C - Last Filed: 02/04/24 15:13>
Update Note
Update Note:
Labs unremarkable other than hyperglycemia of 210. EKG shows NSR without ischemic changes and troponin is normal. CXR is clear without infiltrates. Symptoms persisted on reassessment and nebulizer treatment ordered. D-dimer added which is normal
making PE very unlikely. Repeat troponin increased slightly to 0.022 from 0.012. Repeat EKG again without ischemic changes. Overall very low suspicion for ACS and patient symptomatically improved after neb treatments. Lungs now CTA. Dose of Decadron
and neb machine provided at discharge. Advised close f/u with PCP and strict ED return precautions given. Patient discharged in stable condition.
ED Attending Note
<Rere Finnegan PA-C - Last Filed: 02/04/24 15:13>
-
Portions of this chart may have been created with voice recognition software.� Occasional wrong word or��sound alike� substitutions may have occurred due to the inherent limitations of voice recognition software.
<Sathya Robison, DO - Last Filed: 02/04/24 13:42>
ED Attending Note
Patient seen and examined by attending physician: Yes
I performed the substantive portion of visit, reviewed & personally made and approve the management plan that is documented in note by myself or CANDIDA.: Yes
ED Attending Note:
Seen with PA examined independently cough shortness of breath smoker possibly aspirated allergies noted labs noted chest x-ray noted believe he would benefit from nebs and steroids no clear indication for antibiotics
Discharge Plan
Departure
Patient Disposition: Home (Routine Discharge)
Date of Disposition: 02/04/24
Time of Disposition: 13:49
Patient with high blood pressure during this ER visit?: No
Discharge Problem:
Asthma exacerbation, Chest pain
Instructions: Asthma, Adult (DC)
Prescriptions:
New
albuterol sulfate 2.5 mg/0.5 mL solution for nebulization
5 mg inhalation Q6H PRN (Reason: shortness of breath or wheezing) Qty: 30 0RF
No Action
hydrochlorothiazide 25 mg Tablet
25 mg PO DAILY Qty: 0
loratadine 10 MG tablet
10 mg PO DAILY
lorazepam 0.5 MG tablet
0.5 mg PO BIDPRN PRN (Reason: anxiety)
Patient Comments:
05/10/23 filled on 05/09/23 #10
irbesartan 300 mg Tablet
300 mg PO DAILY Qty: 0
metoprolol succinate [Toprol XL] 25 mg Tablet Extended Release 24 Hr
25 mg PO BID
fenofibrate nanocrystallized 145 mg Tablet
145 mg PO DAILY
acetaminophen 500 mg Tablet
1,000 mg PO Q6HPRN PRN (Reason: mild pain)
cholecalciferol (vitamin D3) [Vitamin D3] 125 mcg (5,000 unit) Tablet
125 mcg PO DAILY
fluticasone propionate [Flonase Allergy Relief] 50 mcg/actuation spray,suspension
1 spray intranasal DAILY Qty: 16 0RF
famotidine 20 mg Tablet
20 mg PO DAILY
pantoprazole [Protonix] 40 mg Tablet,Delayed Release (Dr/Ec)
40 mg PO DAILY
zinc 50 mg Capsule
50 mg PO DAILY
vilazodone
1 tab PO DAILY
clindamycin HCl [Cleocin HCl] 300 mg capsule
300 mg PO TID
ketorolac 10 mg tablet
10 mg PO Q8H 5 Days Qty: 15 0RF
iqoxbtwblv-vwlvbwupbznob-rvjj [Fioricet] 50-300-40 mg capsule
1 cap PO Q8H PRN (Reason: Pain) Qty: 10 0RF
clindamycin HCl 150 mg capsule
450 mg PO QID 10 Days Qty: 120 0RF
Referrals:
Mathieu Loyd MD [Family Provider] -
Activity Restrictions/Additional Instructions:
Use inhaler and nebulizer treatments as needed for wheezing.
Please follow-up with your family doctor in 2-3 days. Return to the ER with any new or worsening symptoms.
Interventions
Interventions:
*Risk Screen - Suicide Last Done: 02/04/24 08:35
*General Assessment Last Done: 02/04/24 08:35
*Neglect/Abuse Screening Last Done: 02/04/24 08:35
*Nursing Disposition Last Done: 02/04/24 14:44
ED- Cardiac Assessment Last Done: 02/04/24 08:35
ED- Pulmonary Assessment Last Done: 02/04/24 08:35
Discharge Date and Time
Discharge Date/Time: 02/04/24 14:44
Print Language: [place]ONG[place]
[2024-02-04] MEDS: ZOFRAN 4 MG IV (09:01)
[2024-02-04] MEDS: PEPCID 20 MG IV (09:02)
[2024-02-04 09:06] VITALS: BP 114/79
[2024-02-04] MEDS: NSS 1000 IV (09:07)
[2024-02-04 09:20] LABS: ALT (SGPT) 18 U/L (0-50); AST (SGOT) 21 U/L (17-59); Albumin 4.3 g/dl (3.5-5.0); Alkaline Phosphatase 47 U/L (38-126); Blood Urea Nitrogen 19 mg/dl (9-20); Calcium 9.8 mg/dl (8.4-10.2); Carbon Dioxide 28 mmol/L (22-30); Chloride 105 mmol/L (98-107); Glucose 210 mg/dl (70-99); Potassium 4.3 mmol/L (3.5-5.1); Sodium 139 mmol/L (135-145); Total Bilirubin 0.4 mg/dl (0.2-1.3); Total Protein 6.5 g/dl (6.3-8.2); eGFR > 60.00
[2024-02-04 09:29] LABS: Troponin I 0.012 ng/ml
[2024-02-04 10:00] VITALS: BP 133/88
[2024-02-04 10:54] LABS: Hematocrit 42.2 % (39.0-52.0); Hemoglobin 14.8 g/dL (13.0-18.0); Mean Corp Hgb Conc. 35.1 g/dL (33.0-37.0); Mean Corpuscular Volume 88.5 fL (80.0-94.0); Red Blood Cell Count 4.77 10^6/uL (4.70-6.10); White Blood Cell Count 9.2 10^3/uL (4.8-10.8)
[2024-02-04 10:55] LABS: % Basophils 0.8 % (0-2); % Eosinophils 2.7 % (0-6); % Immature Granulocytes 0.5 % (0-0.5); % Lymphocytes 22.1 % (20.5-51.1); % Monocytes 8.9 % (1.7-9.3); Platelet Count 234 10^3/uL (130-400); Red Cell Dist. Width 13.1 % (11.5-14.5)
[2024-02-04 10:56] LABS: Nucleated Red Blood Cells % 0 % (-)
[2024-02-04 10:57] LABS: Mean Platelet Volume 10.9 fL (7.4-10.4)
[2024-02-04 10:58] LABS: Absolute Basophils 0.1 10^3/uL (0-0.2); Absolute Eosinophils 0.3 10^3/uL (0-0.7); Absolute Immature Granulocytes 0.1 10^3/uL (0-0.05); Absolute Monocytes 0.8 10^3/uL (0.1-0.6)
[2024-02-04] MEDS: VENTOLIN NEBULES 5 MG INH (11:10)
[2024-02-04 11:46] LABS: Troponin I 0.022 ng/ml
[2024-02-04 12:00] VITALS: BP 124/72
[2024-02-04 12:06] LABS: D-Dimer < 0.27 ug/mlFEU (0.00-0.50)
[2024-02-04 13:00] VITALS: BP 136/94
[2024-02-04] MEDS: DUONEB 3 ML INH (13:26)
[2024-02-04] MEDS: DECADRON 10 MG PO (14:05)
== END 2024-02-04 14:44 | disposition home or self-care (01) ==
LOC: EMR 07:45
PROVIDERS: Physician Assistant; EMERGENCY PHYSICIAN Emergency Medicine; FAMILY PHYSICIAN Family Medicine
DX: R07.89 Other chest pain (principal); J45.901 Unspecified asthma with (acute) exacerbation; F17.200 Nicotine dependence, unspecified, uncomplicated; I10 Essential (primary) hypertension; K21.9 Gastro-esophageal reflux disease without esophagitis; K58.9 Irritable bowel syndrome, unspecified
CPT/HCPCS: 99285; 96374; 96375; 96361; 94640; 71046; 80053; 84484; 85025; 85379; 93005

== ENCOUNTER 2024-02-28 14:38 | Emergency (ER) | payer OTHER, SELFPAY ==
[2024-02-28 14:51] VITALS: BP 120/73
[2024-02-28 15:19] LABS: % Basophils 0.7 % (0-2); % Eosinophils 2.2 % (0-6); % Immature Granulocytes 0.4 % (0-0.5); % Monocytes 6.1 % (1.7-9.3); % Neutrophils 58.6 % (42.2-75.2); Absolute Basophils 0.1 10^3/uL (0-0.2); Absolute Eosinophils 0.2 10^3/uL (0-0.7); Absolute Lymphocytes 2.2 10^3/uL (1.2-3.4); Absolute Monocytes 0.4 10^3/uL (0.1-0.6); Hematocrit 42.4 % (39.0-52.0); Hemoglobin 15.3 g/dL (13.0-18.0); Mean Corp Hgb Conc. 36.1 g/dL (33.0-37.0); Mean Corpuscular Hgb 31.4 pg (27.0-31.0); Mean Corpuscular Volume 86.9 fL (80.0-94.0); Mean Platelet Volume 10.8 fL (7.4-10.4); Nucleated Red Blood Cells % 0 % (-); Platelet Count 228 10^3/uL (130-400); Red Blood Cell Count 4.88 10^6/uL (4.70-6.10); White Blood Cell Count 6.9 10^3/uL (4.8-10.8)
[2024-02-28 15:36] LABS: ALT (SGPT) 20 U/L (0-50); AST (SGOT) 23 U/L (17-59); Albumin 4.6 g/dl (3.5-5.0); Alkaline Phosphatase 40 U/L (38-126); Blood Urea Nitrogen 12 mg/dl (9-20); Calcium 10.2 mg/dl (8.4-10.2); Carbon Dioxide 22 mmol/L (22-30); Chloride 104 mmol/L (98-107); Glucose 245 mg/dl (70-99); Potassium 4.2 mmol/L (3.5-5.1); Sodium 135 mmol/L (135-145); Total Bilirubin 0.7 mg/dl (0.2-1.3); eGFR > 60.00
[2024-02-28 15:41] LABS: Troponin I < 0.012 ng/ml
--- NOTE | 2024-02-28 16:28 | ED.GENMED ---
History of Present Illness
General
Chief Complaint: Back Pain
Source: patient
Exam Limitations: none
Time Seen by Provider: 02/28/24 16:06
History of Present Illness
History of Present Illness:
See MDM
Past History
Past History
ED Past Medical History: Asthma, GERD, HTN, Hypercholesterolemia, Psychiatric (Anxiety, Depression. Panic attacks) and Other (Obesity, Barrets esophagus, Gastritis, IBS, Cerebral hematoma, DVT)
ED Past Surgical History: Brain, Cardiac (Cardiac catheterization 2 years ago that was normal) and Other (Craniotomy for subdural hematoma)
Patient has exhibited threatening behavior?: No
PSI?: No
Social History
Tobacco: Smoker
Alcohol: Occasional
Drug: Former user (Opiates, cocaine) and Marijuana
Personal: Single
Living: with family
Employment: Employed
Family History
Family History: Diabetes, Hypertension and CAD (Grandmother with triple bypass); Negative Early CAD
Phy Exam
Physical Exam
Physical Exam:
See MDM
Course
Orders/Labs/Results
Orders:
Orders
02/28/24 14:54
EKG [Electrocardiogram (*1)] Urgent
Reason for Study: Chest Pain
EKG- Treatment ONCE
02/28/24 15:06
Complete Blood Count/With Diff Urgent
Comprehensive Metabolic Panel Urgent
Troponin I Urgent
02/28/24 16:28
CT Chest Angio W/wo Iv Contras Urgent
Comment:
Reason For Exam: chest and back pain
02/28/24 16:53
Ketorolac [Toradol] 30 mg IV NOW STA
Abnormal Lab Results
02/28/24
15:06
MCH 31.4 H pg
(27.0-31.0)
MPV 10.8 H fL
(7.4-10.4)
Glucose 245 H mg/dl
(70-99)
02/28/24 15:06
02/28/24 15:06
Vital Signs
Initial and Last Documented VS:
Initial Vital Signs
Temp Pulse Resp BP Pulse Ox
98.0 F 82 18 120/73 96
02/28/24 14:51 02/28/24 14:51 02/28/24 14:51 02/28/24 14:51 02/28/24 14:51
Last Documented Vital Signs
Temp Pulse Resp BP Pulse Ox
98.0 F 74 17 122/78 94
02/28/24 14:51 02/28/24 18:00 02/28/24 18:00 02/28/24 18:00 02/28/24 18:00
MDM/Problems Addressed
Differential Diagnosis Includes:
HPI and MDM Narrative:
38-year-old male presenting with sudden onset of back pain that is now radiating into his chest. Initially came and went but is now more persistent. Went to urgent care and was sent to the emergency department to rule out possible aortic
dissection. Tylenol is not helping
Given his smoking history in addition to high cholesterol and high blood pressure, will obtain CT to rule out aortic dissection
Physical exam
General: Well appearing and non-toxic
HEENT: protecting airway
Neck: appears supple
CV: No evidence of cyanosis. Regular rate and rhythm
Back: No reproducible tenderness
Resp: No accessory muscle use
Abd: Non-distended
Extremities: No deformities
Neuro: alert
Psych: Normal affect
Skin: Intact
Problems Addressed including Acute and Chronic Conditions affecting care:
1. Chest and back pain
Acuity: acute
Prognosis: stable
Details: EKG negative. Discussed low suspicion for ACS. Will obtain CT to rule out aortic dissection
Updates
CT angiogram negative. Patient feels comfortable going home
Differential Diagnosis (but not limited to): Aortic dissection, gastritis, esophagitis, muscle strain
Testing considered: D-dimer but patient is high risk
Drug therapy (if applicable): OTC meds, please see d/c instruction regarding Rx drugs
Amount and/or Complexity of Data Reviewed
Clinical info obtained from: Patient
External data reviewed: N/A
Labs I independently reviewed (but not limited to): Troponin normal
Radiology: The CT scan was personally and independently reviewed. In addition, official CT report reviewed.
Pulse Ox: not hypoxic
EKG independently reviewed: Sinus rhythm, normal axis, no STEMI
Gastroenterology Teacher: N/A
Critical Care: N/A
Risk of Complication:
Social Determinants of health: Good social support
Discussed with other providers: N/A
Escalation of Care includes Admit/Obs: After being observed in the Emergency Department, pt stable for discharge.
Occasional wrong word or 'sound a like' substitutions may have occurred due to the inherent limitations of voice recognition software. Read the chart carefully and recognize, using context, where substitutions have occurred.
*Critical Care Note
Total Time (30-74mins, 75-104mins- exclusive of procedures): Not Applicable
ED Attending Note
-
Portions of this chart may have been created with voice recognition software.� Occasional wrong word or��sound alike� substitutions may have occurred due to the inherent limitations of voice recognition software.
Discharge Plan
Departure
Patient Disposition: Home (Routine Discharge)
Date of Disposition: 02/28/24
Time of Disposition: 19:04
Patient with high blood pressure during this ER visit?: No
Discharge Problem:
Chest pain
Prescriptions:
No Action
hydrochlorothiazide 25 mg Tablet
25 mg PO DAILY Qty: 0
loratadine 10 MG tablet
10 mg PO DAILY
lorazepam 0.5 MG tablet
0.5 mg PO BIDPRN PRN (Reason: anxiety)
Patient Comments:
05/10/23 filled on 05/09/23 #10
irbesartan 300 mg Tablet
300 mg PO DAILY Qty: 0
metoprolol succinate [Toprol XL] 25 mg Tablet Extended Release 24 Hr
25 mg PO BID
fenofibrate nanocrystallized 145 mg Tablet
145 mg PO DAILY
acetaminophen 500 mg Tablet
1,000 mg PO Q6HPRN PRN (Reason: mild pain)
cholecalciferol (vitamin D3) [Vitamin D3] 125 mcg (5,000 unit) Tablet
125 mcg PO DAILY
fluticasone propionate [Flonase Allergy Relief] 50 mcg/actuation spray,suspension
1 spray intranasal DAILY Qty: 16 0RF
famotidine 20 mg Tablet
20 mg PO DAILY
pantoprazole [Protonix] 40 mg Tablet,Delayed Release (Dr/Ec)
40 mg PO DAILY
zinc 50 mg Capsule
50 mg PO DAILY
vilazodone
1 tab PO DAILY
clindamycin HCl [Cleocin HCl] 300 mg capsule
300 mg PO TID
ketorolac 10 mg tablet
10 mg PO Q8H 5 Days Qty: 15 0RF
hlsbmntrzt-vwyhawfwpsvec-mayg [Fioricet] 50-300-40 mg capsule
1 cap PO Q8H PRN (Reason: Pain) Qty: 10 0RF
clindamycin HCl 150 mg capsule
450 mg PO QID 10 Days Qty: 120 0RF
albuterol sulfate 2.5 mg/0.5 mL solution for nebulization
5 mg inhalation Q6H PRN (Reason: shortness of breath or wheezing) Qty: 30 0RF
Referrals:
Mathieu Loyd MD [Family Provider] -
Activity Restrictions/Additional Instructions:
Please return for any worsening symptoms.
You may return at any time if you have further concerns.
Please follow up with your doctor at the first available appointment, preferably this week.
Thank you for choosing [facility].
Interventions
Interventions:
*Risk Screen - Suicide Last Done: 02/28/24 14:51
*General Assessment Last Done: 02/28/24 14:51
*Neglect/Abuse Screening Last Done: 02/28/24 14:51
*ED COVID-19 Vaccine History Last Done: 02/28/24 14:51
ED-Musculoskeletal Assessment Last Done: 02/28/24 17:17
Discharge Date and Time
Print Language: HUNGARIAN
[2024-02-28 16:40] VITALS: BP 127/73
[2024-02-28 16:50] VITALS: BP 127/73
[2024-02-28 17:00] VITALS: BP 120/82
[2024-02-28] MEDS: TORADOL 30 MG IV (17:06)
[2024-02-28 18:00] VITALS: BP 122/78
[2024-02-28 18:11] VITALS: BMI 41.0
[2024-02-28 19:33] VITALS: BP 122/78
== END 2024-02-28 19:30 | disposition home or self-care (01) ==
LOC: EMR 14:38
PROVIDERS: Emergency Medicine; EMERGENCY PHYSICIAN Student in an Organized Health Care Education/Training Program; FAMILY PHYSICIAN Family Medicine
DX: R07.89 Other chest pain (principal); M54.9 Dorsalgia, unspecified; J45.909 Unspecified asthma, uncomplicated; K21.9 Gastro-esophageal reflux disease without esophagitis; I10 Essential (primary) hypertension; E78.00 Pure hypercholesterolemia, unspecified; F41.8 Other specified anxiety disorders; E66.9 Obesity, unspecified; K58.9 Irritable bowel syndrome, unspecified; F17.200 Nicotine dependence, unspecified, uncomplicated; Z82.49 Family history of ischemic heart disease and other diseases of the circulatory system; Z83.3 Family history of diabetes mellitus; Z86.718 Personal history of other venous thrombosis and embolism; Z87.19 Personal history of other diseases of the digestive system
CPT/HCPCS: 99284; 96374; 71275; 80053; 84484; 85025; 93005; Q9967

== ENCOUNTER 2024-03-15 10:21 | Emergency (ER) | payer OTHER, SELFPAY ==
[2024-03-15 10:43] VITALS: BP 110/88
[2024-03-15 11:00] VITALS: BP 117/94
[2024-03-15 11:42] LABS: % Basophils 0.7 % (0-2); % Eosinophils 2.3 % (0-6); % Immature Granulocytes 0.2 % (0-0.5); % Lymphocytes 22.2 % (20.5-51.1); % Monocytes 7.5 % (1.7-9.3); % Neutrophils 67.1 % (42.2-75.2); Absolute Basophils 0.1 10^3/uL (0-0.2); Absolute Eosinophils 0.2 10^3/uL (0-0.7); Absolute Lymphocytes 1.9 10^3/uL (1.2-3.4); Absolute Monocytes 0.7 10^3/uL (0.1-0.6); Absolute Neutrophils 5.8 10^3/uL (1.4-6.5); Hematocrit 44.4 % (39.0-52.0); Hemoglobin 15.7 g/dL (13.0-18.0); Mean Corp Hgb Conc. 35.4 g/dL (33.0-37.0); Mean Corpuscular Hgb 30.7 pg (27.0-31.0); Mean Corpuscular Volume 86.9 fL (80.0-94.0); Mean Platelet Volume 10.8 fL (7.4-10.4); Nucleated Red Blood Cells % 0 % (-); Platelet Count 229 10^3/uL (130-400); Red Blood Cell Count 5.11 10^6/uL (4.70-6.10); Red Cell Dist. Width 12.9 % (11.5-14.5); White Blood Cell Count 8.6 10^3/uL (4.8-10.8)
[2024-03-15 11:46] LABS: ALT (SGPT) 18 U/L (0-50); AST (SGOT) 22 U/L (17-59); Albumin 4.7 g/dl (3.5-5.0); Alkaline Phosphatase 48 U/L (38-126); Blood Urea Nitrogen 14 mg/dl (9-20); Calcium 9.9 mg/dl (8.4-10.2); Carbon Dioxide 26 mmol/L (22-30); Chloride 102 mmol/L (98-107); Glucose 178 mg/dl (70-99); Potassium 4.1 mmol/L (3.5-5.1); Sodium 138 mmol/L (135-145); Total Bilirubin 0.8 mg/dl (0.2-1.3); Total Protein 6.9 g/dl (6.3-8.2); eGFR > 60.00
--- NOTE | 2024-03-15 11:48 | ED.GENMED ---
History of Present Illness
General
Chief Complaint: Chest Pain
Source: patient
Time Seen by Provider: 03/15/24 11:37
History of Present Illness
History of Present Illness:
38-year-old male presents to the emergency room for chest pain. Patient was seen here in the emergency room about 3 weeks ago for chest pain. He had a full workup including a CT at that time which was unremarkable. Patient states he was told to
return if the pain does not get better. Patient has had visits for chest pain several times. Typically his workup is unremarkable. Patient states he has been taking his reflux and GERD medication as well as his anxiety medication. He denies any
fever, chills.
Past History
Past History
ED Past Medical History: Asthma, GERD, HTN, Hypercholesterolemia, Psychiatric (Anxiety, Depression. Panic attacks) and Other (Obesity, Barrets esophagus, Gastritis, IBS, Cerebral hematoma, DVT)
ED Past Surgical History: Brain, Cardiac (Cardiac catheterization 2 years ago that was normal) and Other (Craniotomy for subdural hematoma)
Patient has exhibited threatening behavior?: No
PSI?: No
Social History
Tobacco: Smoker
Alcohol: Occasional
Drug: Former user (Opiates, cocaine) and Marijuana
Personal: Single
Living: with family
Employment: Employed
Family History
Family History: Diabetes, Hypertension and CAD (Grandmother with triple bypass); Negative Early CAD
Phy Exam
Physical Exam
Physical Exam:
General: Awake, Alert, Oriented X3. No acute distress.
Vitals: unremarkable
Head: Atraumatic
Eyes: Pupils equal, EOMI
Throat: Airway intact, no exudates
Neck: Trachea midline
Lungs: Clear and equal b/l
Heart: Regular rate, no murmurs
Abd: Soft, Nontender, No pulsatile mass
Neuro: Nonfocal
Skin: Warm, dry, no rash
Extremities: pulses equal b/l, no edema
Scores
Heart Score for Chest Pain Patients
STEMI patient?: No
History: Slightly or Non-Suspicious
ECG: Normal
Age: </= 45 years
Risk Factors: 1 or 2 Risk Factors
Troponin: </= Normal Limit
Heart Score for Chest Pain Patients: 1
Heart Score Risk: 2.5% MACE over next 6 weeks
Course
Orders/Labs/Results
Orders:
Orders
03/15/24 10:26
Electrocardiogram (*1) Urgent
Reason for Study: Chest Pain
EKG- Treatment ONCE
03/15/24 11:20
Complete Blood Count/With Diff Urgent
Comprehensive Metabolic Panel Urgent
Troponin I Urgent
03/15/24 11:47
Ketorolac [Toradol] 15 mg IV NOW STA
03/15/24 11:48
CR Chest - 2 Views Urgent
Comment:
Reason For Exam: chest pain
03/15/24 14:08
Pregabalin [Lyrica] 100 mg PO NOW STA
03/15/24 14:08
Lidocaine [Lidocaine 4% Patch] 1 patch TOPICAL NOW STA
Apply Lidocaine patch(s) to:: chest
Abnormal Lab Results
03/15/24
11:20
MPV 10.8 H fL
(7.4-10.4)
Absolute Monos (auto) 0.7 H 10^3/uL
(0.1-0.6)
Glucose 178 H mg/dl
(70-99)
03/15/24 11:20
03/15/24 11:20
Vital Signs
Initial and Last Documented VS:
Initial Vital Signs
Temp Pulse Resp BP Pulse Ox
98.0 F 82 20 110/88 95
03/15/24 10:43 03/15/24 10:43 03/15/24 10:43 03/15/24 10:43 03/15/24 10:43
Last Documented Vital Signs
Temp Pulse Resp BP Pulse Ox
98.0 F 81 20 131/82 96
03/15/24 10:43 03/15/24 13:48 03/15/24 13:48 03/15/24 13:00 03/15/24 13:48
MDM/Problems Addressed
Differential Diagnosis Includes:
ACS, musculoskeletal chest pain, Lyrica withdrawal syndrome
MDM/Problems Addressed:
Patient presents with a variety of symptoms including chest pain, paresthesias, diarrhea. Work appears unremarkable. Patient does have extensive workup a couple weeks ago. No further imaging is required here. Review of the patient's PDMP reveals
that he was prescribed Lyrica which he did run out of. He is been in contact with his neurologist who prescribes it but there was some miscommunication about sending the prescription. Perhaps the patient's burning discomfort diarrhea related to
withdrawal. We will reinstitute this and hopefully he will feel better. Also lighted Derm for the anterior chest pain.
*EKG
Interpreted by ED Provider?: Yes
Interpretation: normal
Heart Rate: 77
Rate: normal
Rhythm: sinus
[place]: normal axis
Interval: normal interval
QRS Pattern: normal QRS
Ischemia: no ischemia
*Brand Specialist Interpretation
Rate: normal
Interpretation: normal
Rhythm: sinus
*Critical Care Note
Total Time (30-74mins, 75-104mins- exclusive of procedures): Not Applicable
ED Attending Note
-
Portions of this chart may have been created with voice recognition software.� Occasional wrong word or��sound alike� substitutions may have occurred due to the inherent limitations of voice recognition software.
Discharge Plan
Departure
Patient Disposition: Home (Routine Discharge)
Date of Disposition: 03/15/24
Time of Disposition: 13:23
Patient with high blood pressure during this ER visit?: No
Condition: Good
Discharge Problem:
Anterior chest wall pain
Instructions: Chest Pain That Is Not Caused by the Heart (DC), Chest Pain PCP Follow Up
Prescriptions:
New
pregabalin 100 mg capsule
100 mg PO BID Qty: 60 0RF
No Action
hydrochlorothiazide 25 mg Tablet
25 mg PO DAILY Qty: 0
loratadine 10 MG tablet
10 mg PO DAILY
lorazepam 0.5 MG tablet
0.5 mg PO BIDPRN PRN (Reason: anxiety)
Patient Comments:
05/10/23 filled on 05/09/23 #10
irbesartan 300 mg Tablet
300 mg PO DAILY Qty: 0
metoprolol succinate [Toprol XL] 25 mg Tablet Extended Release 24 Hr
25 mg PO BID
fenofibrate nanocrystallized 145 mg Tablet
145 mg PO DAILY
acetaminophen 500 mg Tablet
1,000 mg PO Q6HPRN PRN (Reason: mild pain)
cholecalciferol (vitamin D3) [Vitamin D3] 125 mcg (5,000 unit) Tablet
125 mcg PO DAILY
fluticasone propionate [Flonase Allergy Relief] 50 mcg/actuation spray,suspension
1 spray intranasal DAILY Qty: 16 0RF
famotidine 20 mg Tablet
20 mg PO DAILY
pantoprazole [Protonix] 40 mg Tablet,Delayed Release (Dr/Ec)
40 mg PO DAILY
zinc 50 mg Capsule
50 mg PO DAILY
vilazodone
1 tab PO DAILY
clindamycin HCl [Cleocin HCl] 300 mg capsule
300 mg PO TID
ketorolac 10 mg tablet
10 mg PO Q8H 5 Days Qty: 15 0RF
lgrwibjhjx-hybqbofsvxfpf-czjd [Fioricet] 50-300-40 mg capsule
1 cap PO Q8H PRN (Reason: Pain) Qty: 10 0RF
clindamycin HCl 150 mg capsule
450 mg PO QID 10 Days Qty: 120 0RF
albuterol sulfate 2.5 mg/0.5 mL solution for nebulization
5 mg inhalation Q6H PRN (Reason: shortness of breath or wheezing) Qty: 30 0RF
Referrals:
Mathieu Loyd MD [Family Provider] -
Activity Restrictions/Additional Instructions:
Some of your symptoms may be related to the fact he stopped the Lyrica. We will send a prescription so you can restart this. Please follow your primary care doctor and Dr. Sims.
Interventions
Interventions:
*Risk Screen - Suicide Last Done: 03/15/24 11:23
*General Assessment Last Done: 03/15/24 11:23
*Neglect/Abuse Screening Last Done: 03/15/24 11:23
*ED COVID-19 Vaccine History Last Done: 03/15/24 11:23
ED- Cardiac Assessment Last Done: 03/15/24 11:22
Discharge Date and Time
Print Language: KOREAN
[2024-03-15 11:55] LABS: Troponin I < 0.012 ng/ml
[2024-03-15] MEDS: TORADOL 15 MG IV (11:58)
[2024-03-15 12:00] VITALS: BP 131/90
[2024-03-15 12:22] VITALS: BP 131/73
[2024-03-15 13:00] VITALS: BP 131/82
[2024-03-15 14:00] VITALS: BP 118/89
[2024-03-15] MEDS: LIDOCAINE 4% PATCH 1 PATCH TOPICAL (14:27)
[2024-03-15] MEDS: LYRICA 100 MG PO (14:27)
== END 2024-03-15 14:40 | disposition home or self-care (01) ==
LOC: EMR 10:21
PROVIDERS: Student in an Organized Health Care Education/Training Program; EMERGENCY PHYSICIAN Emergency Medicine; FAMILY PHYSICIAN Family Medicine
DX: R07.89 Other chest pain (principal); R20.2 Paresthesia of skin; K58.0 Irritable bowel syndrome with diarrhea; F41.9 Anxiety disorder, unspecified; F32.A Depression, unspecified; I10 Essential (primary) hypertension; J45.909 Unspecified asthma, uncomplicated; K21.9 Gastro-esophageal reflux disease without esophagitis; F41.0 Panic disorder [episodic paroxysmal anxiety]; E66.9 Obesity, unspecified; E78.00 Pure hypercholesterolemia, unspecified; K22.70 Barrett's esophagus without dysplasia; F17.200 Nicotine dependence, unspecified, uncomplicated; Z86.718 Personal history of other venous thrombosis and embolism; Z88.6 Allergy status to analgesic agent; Z88.1 Allergy status to other antibiotic agents; Z88.0 Allergy status to penicillin; Z88.2 Allergy status to sulfonamides
CPT/HCPCS: 99284; 96374; 71046; 80053; 84484; 85025; 93005

== ENCOUNTER 2024-03-20 13:58 | Emergency (ER) | payer OTHER, SELFPAY ==
[2024-03-20 14:04] VITALS: BP 117/76
--- NOTE | 2024-03-20 14:10 | ED.PDOC.TRB ---
ED Provider Triage
-
Patient seen by provider in Triage?: Seen in Triage
38 year old male with shoulder blade pain radiating to chest and down legs. Here in the recent past for similar symptoms. Has had negative workups for this. CT recently of chest was negative. Will defer imaging at this time. EKG looks stable
labs ordered.
[2024-03-20 14:24] LABS: % Basophils 0.8 % (0-2); % Immature Granulocytes 0.3 % (0-0.5); % Lymphocytes 35.5 % (20.5-51.1); % Monocytes 6.5 % (1.7-9.3); % Neutrophils 53.9 % (42.2-75.2); Absolute Basophils 0.1 10^3/uL (0-0.2); Absolute Eosinophils 0.2 10^3/uL (0-0.7); Absolute Lymphocytes 2.6 10^3/uL (1.2-3.4); Absolute Monocytes 0.5 10^3/uL (0.1-0.6); Hematocrit 40.6 % (39.0-52.0); Hemoglobin 14.4 g/dL (13.0-18.0); Mean Corp Hgb Conc. 35.5 g/dL (33.0-37.0); Mean Corpuscular Hgb 30.3 pg (27.0-31.0); Mean Corpuscular Volume 85.5 fL (80.0-94.0); Mean Platelet Volume 10.4 fL (7.4-10.4); Nucleated Red Blood Cells % 0 % (-); Platelet Count 229 10^3/uL (130-400); Red Blood Cell Count 4.75 10^6/uL (4.70-6.10); Red Cell Dist. Width 12.8 % (11.5-14.5); White Blood Cell Count 7.4 10^3/uL (4.8-10.8)
[2024-03-20 14:37] LABS: ALT (SGPT) 15 U/L (0-50); AST (SGOT) 17 U/L (17-59); Albumin 4.5 g/dl (3.5-5.0); Alkaline Phosphatase 42 U/L (38-126); Blood Urea Nitrogen 18 mg/dl (9-20); Calcium 9.8 mg/dl (8.4-10.2); Carbon Dioxide 27 mmol/L (22-30); Chloride 104 mmol/L (98-107); Glucose 232 mg/dl (70-99); Lipase 58 U/L (23-300); Potassium 4.1 mmol/L (3.5-5.1); Sodium 138 mmol/L (135-145); Total Bilirubin 0.6 mg/dl (0.2-1.3); Total Protein 6.6 g/dl (6.3-8.2); eGFR > 60.00
[2024-03-20 14:43] LABS: Troponin I < 0.012 ng/ml
--- NOTE | 2024-03-20 15:45 | ED.GENMED ---
History of Present Illness
<Carmelina Lui PA-C - Last Filed: 03/20/24 19:34>
General
Chief Complaint: Chest Problem
Source: patient
Exam Limitations: none
Time Seen by Provider: 03/20/24 15:44
Nursing documentation reviewed up to this point in time: agreed with
History of Present Illness
History of Present Illness:
This is a 38-year-old female with a past medical history of asthma, hypertension, idiopathic sinus tachycardia, tobacco use disorder, presenting emergency department today with concerns of upper back pain that radiates into the chest. He is also
complaining of burning pain in his legs and abdomen. Patient reports that he has been seen in the emergency department for upper back pain and chest pain multiple times. Patient states this chest and back pain is not gotten worse, but has never
improved and this concerned him so he reported to the emergency department. 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
cardiac testing done all of which has been unremarkable. Patient was seen here few weeks ago and had a CTA done of the which did not show any evidence of aortic dissection. In terms of patient's burning pain, patient follows with neurology with
Dr. Norris for neuropathy. Patient takes Lyrica for this. Patient states that he feels like the pain in both of his legs has gotten a lot worse but he denies any trouble walking, any motor weakness, denies any recent vaccinations any recent
illnesses. Patient has any difficulty breathing. Patient denies any new medications. Patient is concerned he might have a blood clot in both of his legs however he has had no redness or swelling, no recent surgeries or long distance travel, no
history of cancer. Patient is concerned he has a blood clot in both of his legs.
Past History
<Carmelina Lui PA-C - Last Filed: 03/20/24 19:34>
Past History
ED Past Medical History: Asthma, GERD, HTN, Hypercholesterolemia, Psychiatric (Anxiety, Depression. Panic attacks) and Other (Obesity, Barrets esophagus, Gastritis, IBS, Cerebral hematoma, DVT)
ED Past Surgical History: Brain, Cardiac (Cardiac catheterization 2 years ago that was normal) and Other (Craniotomy for subdural hematoma)
Patient has exhibited threatening behavior?: No
PSI?: No
Social History
Tobacco: Smoker
Alcohol: Occasional
Drug: Former user (Opiates, cocaine) and Marijuana
Personal: Single
Living: with family
Employment: Employed
Family History
Family History: Diabetes, Hypertension and CAD (Grandmother with triple bypass); Negative Early CAD
Review of Systems
<Carmelina Lui PA-C - Last Filed: 03/20/24 19:34>
Review of Systems
All Other Systems: ROS reviewed and negative except as documented in HPI and ROS
Phy Exam
<ALEXI Anaya Last Filed: 03/20/24 19:34>
Physical Exam
Physical Exam:
General: Patient is well appearing and in no acute distress; non-toxic
Skin: Warm and dry, no rashes or lesions
Head: Normocephalic, atraumatic
Eyes: Sclera non-icteric. EOMs intact.
Cardiac: Regular rate and rhythm, no murmurs, no tenderness palpation external chest wall
Peripheral Vascular: No lower extremity swelling or edema, negative Homans' sign bilaterally, no overlying erythema, tube dorsalis pedis pulses bilaterally
Pulm: Normal respiratory effort, no wheezes, rales, rhonchi
Musculoskeletal: 5 out of 5 strength in bilateral upper extremities.
Neuro: CN II-XII intact, no focal neurologic deficits. Brisk patellar and ankle jerk reflex bilaterally.
Psychiatric: Appropriate mood and affect.
Course
<ALEXI Anaya Last Filed: 03/20/24 19:34>
Orders/Labs/Results
Orders:
Orders
03/20/24 14:01
EKG [Electrocardiogram (*1)] Urgent
Reason for Study: Chest Pain
EKG- Treatment ONCE
03/20/24 14:11
Complete Blood Count/With Diff Urgent
Comprehensive Metabolic Panel Urgent
Lipase Urgent
Troponin I Urgent
03/20/24 16:47
US Periph Venous LOWER Ext Reggie Urgent
Comment:
Reason For Exam: bilateral lower extremetiy pain
Abnormal Lab Results
03/20/24
14:11
Glucose 232 H mg/dl
(70-99)
03/20/24 14:11
03/20/24 14:11
Vital Signs
Initial and Last Documented VS:
Initial Vital Signs
Temp Pulse Resp BP Pulse Ox
98.2 F 82 18 117/76 97
03/20/24 14:04 03/20/24 14:04 03/20/24 14:04 03/20/24 14:04 03/20/24 14:04
Last Documented Vital Signs
Temp Pulse Resp BP Pulse Ox
98.2 F 73 17 117/76 96
03/20/24 14:04 03/20/24 15:44 03/20/24 15:44 03/20/24 14:04 03/20/24 15:44
<Ahsan Moore, DO - Last Filed: 03/20/24 19:48>
Orders/Labs/Results
Orders:
Orders
03/20/24 14:01
EKG [Electrocardiogram (*1)] Urgent
Reason for Study: Chest Pain
EKG- Treatment ONCE
03/20/24 14:11
Complete Blood Count/With Diff Urgent
Comprehensive Metabolic Panel Urgent
Lipase Urgent
Troponin I Urgent
03/20/24 16:47
US Periph Venous LOWER Ext Reggie Urgent
Comment:
Reason For Exam: bilateral lower extremetiy pain
Abnormal Lab Results
03/20/24
14:11
Glucose 232 H mg/dl
(70-99)
03/20/24 14:11
03/20/24 14:11
Vital Signs
Initial and Last Documented VS:
Initial Vital Signs
Temp Pulse Resp BP Pulse Ox
98.2 F 82 18 117/76 97
03/20/24 14:04 03/20/24 14:04 03/20/24 14:04 03/20/24 14:04 03/20/24 14:04
Last Documented Vital Signs
Temp Pulse Resp BP Pulse Ox
98.2 F 73 17 117/76 96
03/20/24 14:04 03/20/24 15:44 03/20/24 15:44 03/20/24 14:04 03/20/24 15:44
[place];Carmelina Lui PA-C - Last Filed: 03/20/24 19:34>
MDM/Problems Addressed
Differential Diagnosis Includes:
Differentials include peripheral neuropathy, electrolyte derangement, herniated nucleus pulposus,
MDM/Problems Addressed:
Multiple complaints:
[id number] male with past medical history of resting sinus tachycardia, asthma, tobacco use disorder, hypertension, GERD presenting emergency department today with concerns of chest pain, back pain, bilateral leg pain, and full body neuropathy
symptoms. Patient has been worked up by multiple providers and seen in our emergency department for this issue multiple times. He states that his symptoms have not necessarily gotten worse but they have just persisted and he is unsure what is
wrong. He had a CTA on 02/28/2024 to evaluate for aortic dissection which was negative, he is not seen on 03/15/2024 and he had repeat blood work and was given his Lyrica did not improve his symptoms. He presents today and had unremarkable blood work
and a normal ultrasound. Patient has a follow-up gastroenterology and will follow-up with his neurologist. Considering patient has had the symptoms 3 months, had multiple stress test and outpatient cards follow-up, has had CTA, I believe he is
stable for discharge.
Chronic conditions affecting care:
n/a
Acute Exacerbation and/or Progression of Chronic Illness:
n/a
<Carmelina Lui PA-C - Last Filed: 03/20/24 19:34>
*Pulse Oximetry
Patient hypoxic: no
*Critical Care Note
Total Time (30-74mins, 75-104mins- exclusive of procedures): Not Applicable
Data Reviewed
Review of Other/Old Records Reveals: Records (Reviewed ER physician documentation from 02/04/2024, ER physician documentation on 02/28/2024)
Source: patient and records
ED Attending Note
<Carmelina Lui PA-C - Last Filed: 03/20/24 19:34>
-
Portions of this chart may have been created with voice recognition software.� Occasional wrong word or��sound alike� substitutions may have occurred due to the inherent limitations of voice recognition software.
<Ahsan Moore DO - Last Filed: 03/20/24 19:48>
ED Attending Note
Patient seen and examined by attending physician: Yes
I performed the substantive portion of visit, reviewed & personally made and approve the management plan that is documented in note by myself or CANDIDA.: Yes
ED Attending Note:
Patient is a 38-year-old male with continued pain going from his back to his chest with pain going down both legs. Patient has been having this for some time. Patient also complains of diffuse aches and pains. Patient is seen by neurology and was
told he had neuropathy. Patient has been on gabapentin in the past without any improvement. Patient was on Lyrica and stopped it but started up again recently. Patient denies fever or chills. Patient denies any significant shortness of breath.
Patient denies any GI or symptoms. Patient denies any joint swelling or rashes. Patient is concerned about a clot in his legs. Patient had a recent CTA which was unremarkable. Patient does not appear to be in a significant distress. Vital
signs reviewed and are normal. Ultrasound is unremarkable. Discussed with the patient about following up for possible autoimmune or connective tissue disorders and he seemed to be interested in that. Patient's blood sugar is elevated so will not
start prednisone. Patient however said that he has had a rheumatology workup. Patient will be referred back to his physician. Patient seems to have chronic pain of an unknown etiology.
Discharge Plan
Departure
Patient Disposition: Home (Routine Discharge)
Date of Disposition: 03/20/24
Time of Disposition: 19:02
Patient with high blood pressure during this ER visit?: No
Condition: Good
Discharge Problem:
Chest pain, Neuropathy
Instructions: Chest pain
Prescriptions:
No Action
hydrochlorothiazide 25 mg Tablet
25 mg PO DAILY Qty: 0
loratadine 10 MG tablet
10 mg PO DAILY
lorazepam 0.5 MG tablet
0.5 mg PO BIDPRN PRN (Reason: anxiety)
Patient Comments:
05/10/23 filled on 05/09/23 #10
irbesartan 300 mg Tablet
300 mg PO DAILY Qty: 0
metoprolol succinate [Toprol XL] 25 mg Tablet Extended Release 24 Hr
25 mg PO BID
fenofibrate nanocrystallized 145 mg Tablet
145 mg PO DAILY
acetaminophen 500 mg Tablet
1,000 mg PO Q6HPRN PRN (Reason: mild pain)
cholecalciferol (vitamin D3) [Vitamin D3] 125 mcg (5,000 unit) Tablet
125 mcg PO DAILY
fluticasone propionate [Flonase Allergy Relief] 50 mcg/actuation spray,suspension
1 spray intranasal DAILY Qty: 16 0RF
famotidine 20 mg Tablet
20 mg PO DAILY
pantoprazole [Protonix] 40 mg Tablet,Delayed Release (Dr/Ec)
40 mg PO DAILY
zinc 50 mg Capsule
50 mg PO DAILY
vilazodone
1 tab PO DAILY
clindamycin HCl [Cleocin HCl] 300 mg capsule
300 mg PO TID
ketorolac 10 mg tablet
10 mg PO Q8H 5 Days Qty: 15 0RF
jqlmmurtap-eefgaufognszq-kfra [Fioricet] 50-300-40 mg capsule
1 cap PO Q8H PRN (Reason: Pain) Qty: 10 0RF
clindamycin HCl 150 mg capsule
450 mg PO QID 10 Days Qty: 120 0RF
albuterol sulfate 2.5 mg/0.5 mL solution for nebulization
5 mg inhalation Q6H PRN (Reason: shortness of breath or wheezing) Qty: 30 0RF
pregabalin 100 mg capsule
100 mg PO BID Qty: 60 0RF
Referrals:
Anne Mondragon MD [Active] - Call in 1-3 days for appt
Mathieu Loyd MD [Family Provider] -
Activity Restrictions/Additional Instructions:
Please follow-up with your primary care provider and your neurologist.
Please return emergency department for any concerns.
Interventions
Interventions:
*Risk Screen - Suicide Last Done: 03/20/24 15:53
*General Assessment Last Done: 03/20/24 15:53
*Neglect/Abuse Screening Last Done: 03/20/24 15:53
ED- Fall Risk Assessment Last Done: 03/20/24 19:28
*ED COVID-19 Vaccine History Last Done: 03/20/24 15:53
*Nursing Disposition Last Done: 03/20/24 19:28
ED- Cardiac Assessment Last Done: 03/20/24 15:53
ED- Pulmonary Assessment Last Done: 03/20/24 15:53
Discharge Date and Time
Discharge Date/Time: 03/20/24 19:28
Print Language: PERUVIAN
== END 2024-03-20 19:28 | disposition home or self-care (01) ==
LOC: EMR 13:58
PROVIDERS: Physician Assistant; EMERGENCY PHYSICIAN Emergency Medicine; FAMILY PHYSICIAN Family Medicine
DX: R07.89 Other chest pain (principal); M54.6 Pain in thoracic spine; M79.604 Pain in right leg; M79.605 Pain in left leg; G62.9 Polyneuropathy, unspecified; I10 Essential (primary) hypertension; J45.909 Unspecified asthma, uncomplicated; R00.0 Tachycardia, unspecified; F32.A Depression, unspecified; F41.9 Anxiety disorder, unspecified; F41.0 Panic disorder [episodic paroxysmal anxiety]; E78.00 Pure hypercholesterolemia, unspecified; E66.9 Obesity, unspecified; K21.9 Gastro-esophageal reflux disease without esophagitis; K22.70 Barrett's esophagus without dysplasia; K58.9 Irritable bowel syndrome, unspecified; Z86.718 Personal history of other venous thrombosis and embolism; F17.200 Nicotine dependence, unspecified, uncomplicated; Z88.6 Allergy status to analgesic agent; Z88.1 Allergy status to other antibiotic agents; Z88.0 Allergy status to penicillin; Z88.2 Allergy status to sulfonamides; Z86.16 Personal history of COVID-19
CPT/HCPCS: 99284; 80053; 83690; 84484; 85025; 93005; 93970

== ENCOUNTER 2024-05-29 15:24 | Emergency (ER) | payer OTHER, SELFPAY ==
[2024-05-29 15:28] VITALS: BP 133/79
[2024-05-29 15:51] LABS: % Basophils 0.6 % (0-2); % Eosinophils 2.8 % (0-6); % Immature Granulocytes 0.4 % (0-0.5); % Lymphocytes 29.2 % (20.5-51.1); % Monocytes 6.7 % (1.7-9.3); % Neutrophils 60.3 % (42.2-75.2); Absolute Basophils 0.1 10^3/uL (0-0.2); Absolute Eosinophils 0.3 10^3/uL (0-0.7); Absolute Lymphocytes 2.8 10^3/uL (1.2-3.4); Absolute Monocytes 0.7 10^3/uL (0.1-0.6); Absolute Neutrophils 5.9 10^3/uL (1.4-6.5); Hematocrit 43.2 % (39.0-52.0); Mean Corp Hgb Conc. 34.7 g/dL (33.0-37.0); Mean Corpuscular Hgb 29.6 pg (27.0-31.0); Mean Corpuscular Volume 85.4 fL (80.0-94.0); Mean Platelet Volume 10.4 fL (7.4-10.4); Nucleated Red Blood Cells % 0 % (-); Platelet Count 262 10^3/uL (130-400); Red Blood Cell Count 5.06 10^6/uL (4.70-6.10); Red Cell Dist. Width 13.2 % (11.5-14.5); White Blood Cell Count 9.7 10^3/uL (4.8-10.8)
[2024-05-29 15:58] LABS: ALT (SGPT) 17 U/L (0-50); AST (SGOT) 19 U/L (17-59); Albumin 4.7 g/dl (3.5-5.0); Alkaline Phosphatase 34 U/L (38-126); Blood Urea Nitrogen 16 mg/dl (9-20); Carbon Dioxide 23 mmol/L (22-30); Chloride 105 mmol/L (98-107); Glucose 179 mg/dl (70-99); Potassium 4.2 mmol/L (3.5-5.1); Sodium 140 mmol/L (135-145); Total Bilirubin 0.4 mg/dl (0.2-1.3); Total Protein 6.9 g/dl (6.3-8.2); eGFR > 60.00
[2024-05-29 16:00] VITALS: BP 118/69
[2024-05-29 16:10] LABS: Troponin I < 0.012 ng/ml
--- NOTE | 2024-05-29 16:52 | ED.GENMED ---
History of Present Illness
General
Chief Complaint: Chest Pain
Time Seen by Provider: 05/29/24 16:52
History of Present Illness
History of Present Illness:
TIME OF INITIAL ENCOUNTER: 5 PM
HPI: The patient presents with chest pain. He has longstanding anxiety. He tried to use an edible to treat his chronic anxiety however today he started having severe anxiety after the edible. He was having chest pain before 2 PM today (greater
than 3 hours ago). He did take Ativan 0.5 mg and currently feels somewhat improved. He reports having a cardiac catheterization that showed no sign of blood clot 3 years ago. He has a history of inappropriate sinus tachycardia and is on both
metoprolol and diltiazem.
EXAM:
GENERAL: Well appearing in no distress, elevated BMI
HEENT: Moist oral mucosa
CARDIOVASCULAR: No murmurs, borderline tachycardic heart rate, regular rhythm, No chest wall tenderness
PULMONARY: No respiratory distress, breath sounds are clear and equal
ABDOMEN: Soft with no peritoneal signs, no tenderness
NEUROLOGIC: Excellent strength all extremities, no coordination deficits
PSYCHIATRIC: Appropriate mental status, normal insight and judgement
EXTREMITIES: Nontender, no edema, moves all extremities equally
SKIN: No rash, no lesions
NUMBER AND COMPLEXITY OF PROBLEMS ADDRESSED AT THE ENCOUNTER
� Chronic conditions affecting care: Traumatic intracranial hemorrhage, high blood pressure, Busby's esophagus, GERD, IBS, diabetes, anxiety/depression
� Acute Exacerbation and/or Progression of Chronic Illness: This is an acute problem but is had similar episodes in the past
� Differential Diagnosis includes: Anxiety attack, reaction to THC, highly doubt ACS
AMOUNT AND/OR COMPLEXITY OF DATA TO BE REVIEWED AND ANALYZED
� I performed an independent evaluation of and my interpretation is:
EKG: Sinus 94, normal axis, no acute ST abnormality
CT:
X-rays: Chest x-ray unremarkable
Laboratory Studies: CBC and chemistries unremarkable however glucose is 179, initial troponin negative
Other:
� Review of other/old records: I reviewed records, the patient is had several visits to the ED with chest pain in the past. He has never had an abnormal troponin in the past
� Clinical information was obtained by an independent historian: I spoke to his fianc�e at bedside
� Prescriptions/Medications Considered but not given:
� Further testing considered but not performed:
RISK OF COMPLICATIONS AND/OR MORBIDITY OR MORTALITY OF PATIENT MANAGEMENT
� Social determinants of health affecting care: Lives at home
� Discussion with other providers:
� Escalation of care including admission/observation vs risk of discharge considered: Strongly suspect underlying anxiety worsened by use of an edible today. EKG is unremarkable. Will obtain a second troponin
ANY OTHER UPDATES:
6:05 PM: We had planned on doing a second troponin however the patient continues to improve and adamantly does not want to stay for second troponin. He verbalized understanding of the reasoning why wanted do a second troponin. He states he will
come back here if he feels worse.
Past History
Past History
ED Past Medical History: Asthma, GERD, HTN, Hypercholesterolemia, Psychiatric (Anxiety, Depression. Panic attacks) and Other (Obesity, Barrets esophagus, Gastritis, IBS, Cerebral hematoma, DVT)
ED Past Surgical History: Brain, Cardiac (Cardiac catheterization 2 years ago that was normal) and Other (Craniotomy for subdural hematoma)
Patient has exhibited threatening behavior?: No
PSI?: No
Social History
Tobacco: Smoker
Alcohol: Occasional
Drug: Former user (Opiates, cocaine) and Marijuana
Personal: Single
Living: with family
Employment: Employed
Family History
Family History: Diabetes, Hypertension and CAD (Grandmother with triple bypass); Negative Early CAD
Phy Exam
Physical Exam
Physical Exam:
See HPI
Scores
Heart Score for Chest Pain Patients
STEMI patient?: Not applicable
Course
Orders/Labs/Results
Orders:
Orders
05/29/24 15:24
Electrocardiogram (*1) Urgent
Reason for Study: Chest Pain
EKG- Treatment ONCE
05/29/24 15:32
Chest [CR Chest - 2 Views ] Urgent
Comment:
Reason For Exam: chest pain
05/29/24 15:37
CBC/With Diff [Complete Blood Count/With Diff] Urgent
CMP [Comprehensive Metabolic Panel] Urgent
Troponin I Urgent
05/29/24 17:30
Troponin I Urgent
Abnormal Lab Results
05/29/24
15:37
Absolute Monos (auto) 0.7 H 10^3/uL
(0.1-0.6)
Glucose 179 H mg/dl
(70-99)
Alkaline Phosphatase 34 L U/L
(38-126)
05/29/24 15:37
05/29/24 15:37
Vital Signs
Initial and Last Documented VS:
Initial Vital Signs
Temp Pulse Resp BP Pulse Ox
97.8 F 99 14 133/79 97
05/29/24 15:28 05/29/24 15:28 05/29/24 15:28 05/29/24 15:28 05/29/24 15:28
Last Documented Vital Signs
Temp Pulse Resp BP Pulse Ox
98.5 F 82 18 118/69 94
05/29/24 17:25 05/29/24 17:25 05/29/24 17:25 05/29/24 17:25 05/29/24 17:25
*Critical Care Note
Total Time (30-74mins, 75-104mins- exclusive of procedures): Not Applicable
ED Attending Note
-
Portions of this chart may have been created with voice recognition software.� Occasional wrong word or��sound alike� substitutions may have occurred due to the inherent limitations of voice recognition software.
Discharge Plan
Departure
Patient Disposition: Home (Routine Discharge)
Date of Disposition: 05/29/24
Time of Disposition: 18:07
Patient with high blood pressure during this ER visit?: Yes
Discharge Problem:
Chest pain
Instructions: Chest Pain That Is Not Caused by the Heart (DC)
Prescriptions:
No Action
hydrochlorothiazide 25 mg Tablet
25 mg PO DAILY Qty: 0
loratadine 10 MG tablet
10 mg PO DAILY
lorazepam 0.5 MG tablet
0.5 mg PO BIDPRN PRN (Reason: anxiety)
Patient Comments:
05/10/23 filled on 05/09/23 #10
irbesartan 300 mg Tablet
300 mg PO DAILY Qty: 0
metoprolol succinate [Toprol XL] 25 mg Tablet Extended Release 24 Hr
25 mg PO BID
fenofibrate nanocrystallized 145 mg Tablet
145 mg PO DAILY
acetaminophen 500 mg Tablet
1,000 mg PO Q6HPRN PRN (Reason: mild pain)
cholecalciferol (vitamin D3) [Vitamin D3] 125 mcg (5,000 unit) Tablet
125 mcg PO DAILY
fluticasone propionate [Flonase Allergy Relief] 50 mcg/actuation spray,suspension
1 spray intranasal DAILY Qty: 16 0RF
famotidine 20 mg Tablet
20 mg PO DAILY
pantoprazole [Protonix] 40 mg Tablet,Delayed Release (Dr/Ec)
40 mg PO DAILY
zinc 50 mg Capsule
50 mg PO DAILY
vilazodone
1 tab PO DAILY
clindamycin HCl [Cleocin HCl] 300 mg capsule
300 mg PO TID
ketorolac 10 mg tablet
10 mg PO Q8H 5 Days Qty: 15 0RF
pzegpibgfu-nyxmpjkxfdfqx-bcgd [Fioricet] 50-300-40 mg capsule
1 cap PO Q8H PRN (Reason: Pain) Qty: 10 0RF
clindamycin HCl 150 mg capsule
450 mg PO QID 10 Days Qty: 120 0RF
albuterol sulfate 2.5 mg/0.5 mL solution for nebulization
5 mg inhalation Q6H PRN (Reason: shortness of breath or wheezing) Qty: 30 0RF
pregabalin 100 mg capsule
100 mg PO BID Qty: 60 0RF
Referrals:
Mathieu Loyd MD [Family Provider] -
Activity Restrictions/Additional Instructions:
The cause of your pain does not appear to be coming from the heart. I recommend against further use of edibles. Basic blood work including initial troponin negative. EKG is unremarkable. Chest x-ray is unremarkable. Return here if worse
especially since she declined the repeat troponin.
Interventions
Interventions:
*Risk Screen - Suicide Last Done: 05/29/24 15:28
*General Assessment Last Done: 05/29/24 15:28
*Neglect/Abuse Screening Last Done: 05/29/24 15:28
*ED COVID-19 Vaccine History Last Done: 05/29/24 17:24
ED- Cardiac Assessment Last Done: 05/29/24 17:25
Discharge Date and Time
Print Language: BELGIAN
[2024-05-29 17:25] VITALS: BP 118/69
== END 2024-05-29 18:17 | disposition home or self-care (01) ==
LOC: EMR 15:24
PROVIDERS: EMERGENCY PHYSICIAN Emergency Medicine; FAMILY PHYSICIAN Family Medicine
DX: R07.9 Chest pain, unspecified (principal); I10 Essential (primary) hypertension; J45.909 Unspecified asthma, uncomplicated; K21.9 Gastro-esophageal reflux disease without esophagitis; E78.00 Pure hypercholesterolemia, unspecified; F41.9 Anxiety disorder, unspecified; F17.200 Nicotine dependence, unspecified, uncomplicated; Z79.899 Other long term (current) drug therapy; Z86.718 Personal history of other venous thrombosis and embolism
CPT/HCPCS: 99285; 71046; 80053; 84484; 85025; 93005

== ENCOUNTER 2024-07-28 06:15 | Emergency (ER) | payer OTHER, SELFPAY ==
[2024-07-28 06:18] VITALS: BP 130/80
[2024-07-28 06:45] LABS: % Basophils 0.3 % (0-2); % Eosinophils 1.6 % (0-6); % Immature Granulocytes 0.6 % (0-0.5); % Lymphocytes 5.2 % (20.5-51.1); % Monocytes 6.2 % (1.7-9.3); % Neutrophils 86.1 % (42.2-75.2); Absolute Basophils 0.1 10^3/uL (0-0.2); Absolute Eosinophils 0.2 10^3/uL (0-0.7); Absolute Immature Granulocytes 0.1 10^3/uL (0-0.05); Absolute Lymphocytes 0.8 10^3/uL (1.2-3.4); Absolute Neutrophils 13.2 10^3/uL (1.4-6.5); Hematocrit 47.1 % (39.0-52.0); Hemoglobin 16.1 g/dL (13.0-18.0); Mean Corp Hgb Conc. 34.2 g/dL (33.0-37.0); Mean Corpuscular Hgb 29.8 pg (27.0-31.0); Mean Corpuscular Volume 87.1 fL (80.0-94.0); Mean Platelet Volume 10.3 fL (7.4-10.4); Nucleated Red Blood Cells % 0 % (-); Platelet Count 239 10^3/uL (130-400); Red Blood Cell Count 5.41 10^6/uL (4.70-6.10); Red Cell Dist. Width 13.1 % (11.5-14.5); White Blood Cell Count 15.3 10^3/uL (4.8-10.8)
[2024-07-28 07:07] LABS: ALT (SGPT) 19 U/L (0-50); AST (SGOT) 22 U/L (17-59); Albumin 4.7 g/dl (3.5-5.0); Alkaline Phosphatase 46 U/L (38-126); Blood Urea Nitrogen 17 mg/dl (9-20); Calcium 9.5 mg/dl (8.4-10.2); Carbon Dioxide 27 mmol/L (22-30); Chloride 99 mmol/L (98-107); Glucose 200 mg/dl (70-99); Potassium 4.2 mmol/L (3.5-5.1); Sodium 139 mmol/L (135-145); Total Bilirubin 0.8 mg/dl (0.2-1.3); Total Protein 6.9 g/dl (6.3-8.2); eGFR > 60.00
[2024-07-28 08:23] VITALS: BP 119/80
[2024-07-28 11:22] VITALS: BP 114/74
[2024-07-28] MEDS: NSS 1000 IV ×2 (11:34→12:26)
[2024-07-28 12:01] LABS: COVID-19 Antigen Negative (Negative)
--- NOTE | 2024-07-28 12:20 | ED.GENMED ---
History of Present Illness
<Aliya Dalal PA-C - Last Filed: 07/28/24 18:13>
General
Chief Complaint: Abdominal Symptoms
Source: patient
Exam Limitations: none
Time Seen by Provider: 07/28/24 11:12
Nursing documentation reviewed up to this point in time: agreed with
History of Present Illness
History of Present Illness:
Patient is a 39-year-old male with history of idiopathic sinus tachycardia on Toprol, diabetes, hypertension presenting to the emergency department with intractable nausea, vomiting, and diarrhea. Patient states that after he ate dinner from [employer]
last night he started persistent vomiting and diarrhea. He has been unable to keep anything down since last night prompting his visit to the emergency department. He states his heart rate was in the 150s prior to coming to the emergency department.
Patient does state that on he started with upper respiratory symptoms which his also had similar symptoms. He was seen in urgent care where they suspected a likely bronchitis and started him on a course of doxycycline. Patient does
endorse lingering body aches, cough, nasal congestion.
Patient denies any lower extremity swelling or edema. No recent travel or recent surgeries. No history of DVT.
Past History
<Aliya Dalal PA-C - Last Filed: 07/28/24 18:13>
Past History
ED Past Medical History: Asthma, GERD, HTN, Hypercholesterolemia, Psychiatric (Anxiety, Depression. Panic attacks) and Other (Obesity, Barrets esophagus, Gastritis, IBS, Cerebral hematoma, DVT)
ED Past Surgical History: Brain, Cardiac (Cardiac catheterization 2 years ago that was normal) and Other (Craniotomy for subdural hematoma)
Patient has exhibited threatening behavior?: No
PSI?: No
Social History
Tobacco: Smoker
Alcohol: Occasional
Drug: Former user (Opiates, cocaine) and Marijuana
Personal: Single
Living: with family
Employment: Employed
Family History
Family History: Diabetes, Hypertension and CAD (Grandmother with triple bypass); Negative Early CAD
Review of Systems
<Aliya Dalal PA-C - Last Filed: 07/28/24 18:13>
Review of Systems
Allergies reviewed?: Yes
All Other Systems: ROS reviewed and negative except as documented in HPI and ROS
Phy Exam
<Aliya Dalal PA-C - Last Filed: 07/28/24 18:13>
Physical Exam
Physical Exam:
Vitals: Tachycardia, otherwise vital signs are stable. Temp 99.8 F
General: Patient is acutely ill-appearing. Nontoxic appearing
Skin: Warm and dry, no rashes or lesions
Head: Normocephalic, atraumatic
Eyes: Sclera nonicteric. EOMs intact. No nystagmus.
Throat: Protecting airway. Uvula midline. No CONFERENCE COORDINATOR
Neck: Normal ROM, no cervical spine tenderness, no meningismus
Cardiac: Tachycardic, normal rhythm, no murmurs.
Pulm: Normal respiratory effort, no wheezes, rales, rhonchi heard on exam. Oxygen saturation 97 on room air.
Abdomen: Abdomen soft. Mild diffuse abdominal tenderness. No rebound tenderness or guarding. No CVA tenderness or rash.
Extremities: No evidence of cyanosis or edema. Negative Homans' sign bilaterally. Palpable distal pulses.
Neuro: AAOx3. Grossly intact.
Psychiatric: Normal affect.
Course
<Aliya Dalal PA-C - Last Filed: 07/28/24 18:13>
Orders/Labs/Results
Orders:
Orders
07/28/24 06:39
CMP [Comprehensive Metabolic Panel] Urgent
Complete Blood Count/With Diff Urgent
Lipase Urgent
Comment: ADD ON
07/28/24 08:20
Electrocardiogram (*1) Urgent
Reason for Study: Bradycardia / Tachycardia
EKG- Treatment ONCE
07/28/24 11:30
COVID-19 Antigen Urgent
Source: Nasal Swab
Influenza A+B Rapid Molecular Urgent
JACK Source: Nasal Swab
Specimen Description:
07/28/24 11:34
0.9% Sodium Chloride 1000 ml [Nss] 1,000 ml IV BOLUS
07/28/24 11:50
Add On- LAB Urgent
Tests Added?: lipase
Famotidine [Pepcid] 20 mg IV NOW STA
Ondansetron Injectable [Zofran] 4 mg IV NOW STA
07/28/24 11:51
CR Chest - 2 Views Urgent
Comment:
Reason For Exam: cough, body aches
07/28/24 12:20
0.9% Sodium Chloride 1000 ml [Nss] 1,000 ml IV BOLUS
07/28/24 13:01
Urinalysis Reflex To Culture Urgent
Date Specimen was Collected: 07/28/24
Time Specimen was Collected: 11:57
07/28/24 13:31
Metoprolol [Lopressor] 5 mg IV NOW STA
07/28/24 13:50
Metoprolol Xl [Toprol Xl] 50 mg PO NOW STA
07/28/24 16:14
Acetaminophen [Tylenol] 1,000 mg PO NOW STA
Abnormal Lab Results
07/28/24
06:39
WBC 15.3 H 10^3/uL
(4.8-10.8)
Abs Immat Gran (auto) 0.1 H 10^3/uL
(0-0.05)
Absolute Neuts (auto) 13.2 H 10^3/uL
(1.4-6.5)
Absolute Lymphs (auto) 0.8 L 10^3/uL
(1.2-3.4)
Absolute Monos (auto) 1.0 H 10^3/uL
(0.1-0.6)
Immature Gran % 0.6 H %
(0-0.5)
Neutrophils % 86.1 H %
(42.2-75.2)
Lymphocytes % 5.2 L %
(20.5-51.1)
Glucose 200 H mg/dl
(70-99)
07/28/24 06:39
07/28/24 06:39
Vital Signs
Pulse: 115
Initial and Last Documented VS:
Initial Vital Signs
Temp Pulse Resp BP Pulse Ox
99.8 F 148 20 130/80 97
07/28/24 06:18 07/28/24 06:18 07/28/24 06:18 07/28/24 06:18 07/28/24 06:18
Last Documented Vital Signs
Temp Pulse Resp BP Pulse Ox
99.7 F 116 18 109/50 94
07/28/24 11:22 07/28/24 17:24 07/28/24 17:24 07/28/24 17:24 07/28/24 17:24
<Sathya Robison, DO - Last Filed: 07/28/24 16:22>
Orders/Labs/Results
Orders:
Orders
07/28/24 06:39
CMP [Comprehensive Metabolic Panel] Urgent
Complete Blood Count/With Diff Urgent
Lipase Urgent
Comment: ADD ON
07/28/24 08:20
Electrocardiogram (*1) Urgent
Reason for Study: Bradycardia / Tachycardia
EKG- Treatment ONCE
07/28/24 11:30
COVID-19 Antigen Urgent
Source: Nasal Swab
Influenza A+B Rapid Molecular Urgent
JACK Source: Nasal Swab
Specimen Description:
07/28/24 11:34
0.9% Sodium Chloride 1000 ml [Nss] 1,000 ml IV BOLUS
07/28/24 11:50
Add On- LAB Urgent
Tests Added?: lipase
Famotidine [Pepcid] 20 mg IV NOW STA
Ondansetron Injectable [Zofran] 4 mg IV NOW STA
07/28/24 11:51
CR Chest - 2 Views Urgent
Comment:
Reason For Exam: cough, body aches
07/28/24 12:20
0.9% Sodium Chloride 1000 ml [Nss] 1,000 ml IV BOLUS
07/28/24 13:01
Urinalysis Reflex To Culture Urgent
Date Specimen was Collected: 07/28/24
Time Specimen was Collected: 11:57
07/28/24 13:31
Metoprolol [Lopressor] 5 mg IV NOW STA
07/28/24 13:50
Metoprolol Xl [Toprol Xl] 50 mg PO NOW STA
07/28/24 16:14
Acetaminophen [Tylenol] 1,000 mg PO NOW STA
Abnormal Lab Results
07/28/24
06:39
WBC 15.3 H 10^3/uL
(4.8-10.8)
Abs Immat Gran (auto) 0.1 H 10^3/uL
(0-0.05)
Absolute Neuts (auto) 13.2 H 10^3/uL
(1.4-6.5)
Absolute Lymphs (auto) 0.8 L 10^3/uL
(1.2-3.4)
Absolute Monos (auto) 1.0 H 10^3/uL
(0.1-0.6)
Immature Gran % 0.6 H %
(0-0.5)
Neutrophils % 86.1 H %
(42.2-75.2)
Lymphocytes % 5.2 L %
(20.5-51.1)
Glucose 200 H mg/dl
(70-99)
07/28/24 06:39
07/28/24 06:39
Vital Signs
Initial and Last Documented VS:
Initial Vital Signs
Temp Pulse Resp BP Pulse Ox
99.8 F 148 20 130/80 97
07/28/24 06:18 07/28/24 06:18 07/28/24 06:18 07/28/24 06:18 07/28/24 06:18
Last Documented Vital Signs
Temp Pulse Resp BP Pulse Ox
99.7 F 116 18 109/50 94
07/28/24 11:22 07/28/24 17:24 07/28/24 17:24 07/28/24 17:24 07/28/24 17:24
<Aliya Dalal PA-C - Last Filed: 07/28/24 18:13>
MDM/Problems Addressed
Differential Diagnosis Includes:
Not limited to: Viral URI, bronchitis, pneumonia, viral gastroenteritis, dehydration, medication side effect, UTI, pyelonephritis, etc.
MDM/Problems Addressed:
39-year-old male with history as documented presenting with viral URI symptoms along with intractable nausea/vomiting. Found to have elevated heart rate at home and presented to ED. Patient tachycardic on arrival. Otherwise has stable vital signs.
Temp 99.8. Physical exam as above. Patient acutely ill-appearing although nontoxic. Heart is tachycardic although normal rhythm. No murmurs. Lungs are clear bilaterally. Patient is perfusing well. Abdomen soft with diffuse mild tenderness
that rebound tenderness or guarding. No lower extremity edema, erythema or pain. No evidence of DVT. EKG obtained in triage shows sinus tachycardia. At this point�differential broad although suspect likely viral URI along with possible viral
gastroenteritis/food poisoning. Low suspicion for acute intra-abdominal infection given benign abdominal exam. Do not suspect PE as patient has no risk factors, no shortness of breath, chest pain or no clinical evidence of DVT on exam. Suspect
significant tachycardia likely secondary to hypovolemia along with medication noncompliance. Patient does take metoprolol and diltiazem for tachycardia although has not taken the past 24 hours given vomiting. labs initiated in triage significant
for a leukocytosis of 15.3 which is likely reactive from vomiting versus other viral process. Otherwise no clinically significant abnormalities. Will check viral swabs, urine. Will check chest x-ray. Will give fluids, Zofran, and reassess.
Update: Viral swabs negative. Chest x-ray shows no evidence of pneumonia. Patient has received 2 L of normal saline with marginal decrease in heart rate although remains tachycardic. Given patient has had no episodes of vomiting�will trial p.o.
dose of metoprolol as prescribed and reassess. No evidence of superimposed bacterial infection.
Update: Into reassess patient at bedside. Repeat abdominal exam remains benign. Patient tolerated p.o. challenge. He did receive his dose of metoprolol as prescribed. He remains tachycardic which is likely secondary to hypovolemia and medication
noncompliance. He does have a history of idiopathic sinus tachycardia. It is possible there is a component from low-grade fever, as well. Will give dose of Tylenol prior to discharge. Feel patient is stable for discharge with supportive care
given suspected viral URI plus viral gastroenteritis and resuming medications at home. Very close return precautions discussed. Patient will follow with cardiology, as well. He will continue his doxycycline as prescribed by urgent care. Patient
seen with attending physician.
Chronic conditions affecting care:
Idiopathic sinus tachycardia, diabetes, hypertension
Acute Exacerbation and/or Progression of Chronic Illness:
Acute hyperglycemia
<Aliya Dalal PA-C - Last Filed: 07/28/24 18:13>
*Radiology
Radiology exam reviewed: preliminary read by ED provider (Chest x-ray reviewed by wa-no evidence of pneumonia) and radiology read reviewed
*Pulse Oximetry
Patient hypoxic: no
*EKG
Interpreted by ED Provider?: Yes
EKG Intrepretation Date: 07/28/24
Interpretation: abnormal
Comparison EKG: changes noted
Heart Rate: 136
Rate: tachycardiac
Rhythm: sinus
[place]: normal axis
Interval: normal QT interval
QRS Pattern: normal QRS
Ischemia: no ischemia
*Branch Library Clerk Interpretation
Rate: Branch Library Clerk- N/A
*Critical Care Note
Total Time (30-74mins, 75-104mins- exclusive of procedures): Not Applicable
ED Attending Note
<Aliya Dalal PA-C - Last Filed: 07/28/24 18:13>
-
Portions of this chart may have been created with voice recognition software.� Occasional wrong word or��sound alike� substitutions may have occurred due to the inherent limitations of voice recognition software.
<Sathya Robison DO - Last Filed: 07/28/24 16:22>
ED Attending Note
Patient seen and examined by attending physician: Yes
I performed a history and physical exam of patient and discussed management with resident, I reviewed resident's note and agree with documented findings and plan of care.: Yes
ED Attending Note:
Seen with PA examined independently agree with assessment and plan
Recent URI body aches, feels warm here feeling better after some fluids, white count up no clear signs of bacterial infection urinalysis noted
Discharge Plan
Departure
Patient Disposition: Home (Routine Discharge)
Date of Disposition: 07/28/24
Time of Disposition: 17:04
Patient with high blood pressure during this ER visit?: No
Condition: Good
Covid-19: Negative COVID-19
Discharge Problem:
Nausea, vomiting and diarrhea, URI (upper respiratory infection), Tachycardia
Instructions: Tachycardia, Nausea and Vomiting, Adult (DC), Abdominal Pain
Prescriptions:
No Action
hydrochlorothiazide 25 mg Tablet
25 mg PO DAILY Qty: 0
loratadine 10 MG tablet
10 mg PO DAILY
lorazepam 0.5 MG tablet
0.5 mg PO BIDPRN PRN (Reason: anxiety)
Patient Comments:
05/10/23 filled on 05/09/23 #10
irbesartan 300 mg Tablet
300 mg PO DAILY Qty: 0
metoprolol succinate [Toprol XL] 25 mg Tablet Extended Release 24 Hr
25 mg PO BID
fenofibrate nanocrystallized 145 mg Tablet
145 mg PO DAILY
acetaminophen 500 mg Tablet
1,000 mg PO Q6HPRN PRN (Reason: mild pain)
cholecalciferol (vitamin D3) [Vitamin D3] 125 mcg (5,000 unit) Tablet
125 mcg PO DAILY
fluticasone propionate [Flonase Allergy Relief] 50 mcg/actuation spray,suspension
1 spray intranasal DAILY Qty: 16 0RF
famotidine 20 mg Tablet
20 mg PO DAILY
pantoprazole [Protonix] 40 mg Tablet,Delayed Release (Dr/Ec)
40 mg PO DAILY
zinc 50 mg Capsule
50 mg PO DAILY
vilazodone
1 tab PO DAILY
clindamycin HCl [Cleocin HCl] 300 mg capsule
300 mg PO TID
ketorolac 10 mg tablet
10 mg PO Q8H 5 Days Qty: 15 0RF
hcaspqeauj-kxkoknxsrrygv-yxhl [Fioricet] 50-300-40 mg capsule
1 cap PO Q8H PRN (Reason: Pain) Qty: 10 0RF
clindamycin HCl 150 mg capsule
450 mg PO QID 10 Days Qty: 120 0RF
albuterol sulfate 2.5 mg/0.5 mL solution for nebulization
5 mg inhalation Q6H PRN (Reason: shortness of breath or wheezing) Qty: 30 0RF
pregabalin 100 mg capsule
100 mg PO BID Qty: 60 0RF
Referrals:
Mathieu Loyd MD [Family Provider] - Follow up in 2-3 days
Activity Restrictions/Additional Instructions:
Return to the emergency department for any chest pain, shortness of breath, high fevers, intractable nausea/vomiting, severe abdominal pain, lightheadedness/dizziness, signs of severe dehydration, or any other concern
-You should restart your medications and take them as prescribed. You did receive 50 mg of metoprolol while in the emergency department. You can take Tylenol/Motrin as needed for body aches/fever. Stay well-hydrated. I recommend a bland diet over
the next few days and slowly advance as tolerated.
-Follow-up with your primary care/cardiology for further evaluation of your tachycardia and to ensure it rate returns to your baseline
Monitor your symptoms closely and return to the emergency department with any acute worsening/new symptoms or any other concerns
Interventions
Interventions:
*Risk Screen - Suicide Last Done: 07/28/24 06:18
*Neglect/Abuse Screening Last Done: 07/28/24 06:18
*Nursing Disposition Last Done: 07/28/24 17:27
ED- Cardiac Assessment Last Done: 07/28/24 13:24
Discharge Date and Time
Discharge Date/Time: 07/28/24 17:28
Print Language: TURKMEN
[2024-07-28] MEDS: PEPCID 20 MG IV (12:26)
[2024-07-28] MEDS: ZOFRAN 4 MG IV (12:26)
[2024-07-28 12:40] LABS: Lipase 47 U/L (23-300)
[2024-07-28 13:21] VITALS: BP 111/72
[2024-07-28 13:21] LABS: Urine Albumin Trace (Neg - Trace); Urine Bilirubin Negative (Negative); Urine Character Clear (Clear); Urine Color Yellow; Urine Glucose Negative (Negative); Urine Ketone Negative (Negative); Urine Leukocyte Negative (Negative); Urine Nitrite Negative (Negative); Urine Occult Blood Negative (Negative); Urine Urobilinogen Negative (Neg - 1+)
[2024-07-28] MEDS: TOPROL XL 50 MG PO (14:43)
[2024-07-28 14:46] VITALS: BP 114/76
[2024-07-28] MEDS: TYLENOL 1000 MG PO (17:22)
[2024-07-28 17:24] VITALS: BP 109/50
== END 2024-07-28 17:28 | disposition home or self-care (01) ==
LOC: EMR 06:15
PROVIDERS: Physician Assistant; Student in an Organized Health Care Education/Training Program; EMERGENCY PHYSICIAN Emergency Medicine; FAMILY PHYSICIAN Family Medicine
DX: R11.2 Nausea with vomiting, unspecified (principal); R19.7 Diarrhea, unspecified; E11.9 Type 2 diabetes mellitus without complications; J45.909 Unspecified asthma, uncomplicated; F41.8 Other specified anxiety disorders; I10 Essential (primary) hypertension; E78.00 Pure hypercholesterolemia, unspecified; E66.9 Obesity, unspecified; F17.200 Nicotine dependence, unspecified, uncomplicated; K21.9 Gastro-esophageal reflux disease without esophagitis; K58.9 Irritable bowel syndrome, unspecified; Z82.49 Family history of ischemic heart disease and other diseases of the circulatory system; Z83.3 Family history of diabetes mellitus; Z86.718 Personal history of other venous thrombosis and embolism; Z87.19 Personal history of other diseases of the digestive system; Z91.148 Patient's other noncompliance with medication regimen for other reason
CPT/HCPCS: 99283; 96374; 96375; 96361; 71046; 80053; 81003; 83690; 85025; 87502; 87811; 93005

== ENCOUNTER 2024-09-26 13:31 | Emergency (ER) | payer OTHER, SELFPAY ==
[2024-09-26] VITALS (9 sets, daily range): BP systolic 99–126; BP diastolic 64–83; BMI 39.2
--- NOTE | 2024-09-26 14:36 | ED.GENMED ---
History of Present Illness
General
Chief Complaint: Back Pain
Source: patient
Exam Limitations: none
Time Seen by Provider: 09/26/24 13:55
Nursing documentation reviewed up to this point in time: agreed with
History of Present Illness
History of Present Illness:
39 yr old male presents to the ED for evaluation. Pt has hx of NIDDM, htn, neuropathy gastritis irritable bowel , + smoker presents to the ER. Patient complains of pain to the right lower back. He had his had this for the past several days and
denies any exact injury. 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 He does feel this when he is standing. He now feels the pain is wrapping around everywhere and causing a burning sensation everywhere. He complains of burning
to both of his legs and into his left arm' and even my tongue.' He denies any upper or lower extremity weakness. He denies any bowel or bladder incontinence. He denies any weakness in his legs or arms. He reports yesterday he was sitting in the
sofa and had chest discomfort and left arm burning.
He denies any abdominal pain. He denies any difficulty urinating but reports he has not urinated yet today and this is quite normal for him.
Past History
Past History
ED Past Medical History: Asthma, GERD, HTN, Hypercholesterolemia, Psychiatric (Anxiety, Depression. Panic attacks) and Other (Obesity, Barrets esophagus, Gastritis, IBS, Cerebral hematoma, DVT)
ED Past Surgical History: Brain, Cardiac (Cardiac catheterization 2 years ago that was normal) and Other (Craniotomy for subdural hematoma)
Patient has exhibited threatening behavior?: No
PSI?: No
Social History
Tobacco: Smoker
Alcohol: Occasional
Drug: Former user (Opiates, cocaine) and Marijuana
Personal: Single
Living: with family
Employment: Employed
Family History
Family History: Diabetes, Hypertension and CAD (Grandmother with triple bypass); Negative Early CAD
Review of Systems
Review of Systems
Allergies reviewed?: Yes
All Other Systems: ROS reviewed and negative except as documented in HPI and ROS
Constitutional: Reports no symptoms; Denies fever, fatigue or chills
EENT: Reports no symptoms
Respiratory: Reports no symptoms; Denies trouble breathing
Cardiac: Reports no symptoms
ABD/GI: Reports no symptoms; Denies abdominal pain, nausea or vomiting
: Denies dysuria, flank pain, incontinence, urgency or discharge
Musculoskeletal: Reports back pain
Neurological: Reports other ('burning all over' )
Hematologic/Lymphatic: Reports no symptoms
Psychiatric: Reports no symptoms
Phy Exam
General Physical Exam
General Presentation: no apparent distress
General age: appears stated age
General Skin: warm and dry
General Habitus: normal
General Mental: alert
General Hydration: appears well hydrated
Cardiovascular Exam
Cardiovascular Exam: regular rate/rhythm, no murmur and normal peripheral pulses
Pulmonary Exam
Pulmonary Exam: lungs clear and no respiratory distress
Neurological Exam
Neurological Exam: alert, oriented x3, no motor deficits, normal reflexs, no sensory deficits and other (Normal distal sensation to bilateral lower extremities normal dorsiflexion plantarflexion)
Musculoskeletal Exam
Musculoskeletal Exam: full ROM and other (nml inspection to back + mild para lumbar muscle tenderness no erythema no bony midline tenderness no CVA tenderness )
Skin Exam
Skin Exam: normal color and warm/dry
Psychiatric Exam
Psychiatric Exam: normal mood/affect
Course
Orders/Labs/Results
Orders:
Orders
09/26/24 14:29
Electrocardiogram (*1) Stat
Reason for Study: Other
Other Reason for Exam: chest pain
Cardiac Monitoring- Treatment ONCE
EKG- Treatment ONCE
IV Insert/Care/Rem.- Treatment PRN
09/26/24 14:32
Basic Metabolic Panel Urgent
Troponin I Urgent
09/26/24 14:33
Complete Blood Count/With Diff Urgent
UA Reflex to Culture [Urinalysis Reflex To Culture] Urgent
Date Specimen was Collected: 09/26/24
Time Specimen was Collected: 14:31
Urine Microscopic Reflex Cult Urgent
09/26/24 16:26
Magnesium Urgent
Potassium Urgent
TSH Reflex To Free T4 Urgent
Abnormal Lab Results
09/26/24 09/26/24
14:32 14:33
MPV 10.6 H fL
(7.4-10.4)
Glucose 129 H mg/dl
(70-99)
Urine Albumin (Reflex) 1+ A
(Neg - Trace)
09/26/24 14:33
09/26/24 16:26
Vital Signs
Initial and Last Documented VS:
Initial Vital Signs
Temp Pulse Resp BP Pulse Ox
98.1 F 79 20 116/75 96
09/26/24 13:37 09/26/24 13:37 09/26/24 13:37 09/26/24 13:37 09/26/24 13:37
Last Documented Vital Signs
Temp Pulse Resp BP Pulse Ox
98.1 F 100 20 110/64 92
09/26/24 13:37 09/26/24 17:30 09/26/24 17:30 09/26/24 17:30 09/26/24 16:00
Punch Molder consulted with Physician
Punch Molder consulted with physician?: Yes
Name of Physician Consulted: Russ
MDM/Problems Addressed
MDM/Problems Addressed:
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 He complains of burning sensation all over throughout his body he does have neuropathy and is on Lyrica. He does feel that this burning feels
similar to his neuropathy in the past. With regards to back pain there is no neurological deficit or concerning findings. He is tender throughout the lumbar region. He denies any actual sciatica. He is nontoxic. He denies any fever chills. His
electrolytes are unremarkable. He denies any UTI symptoms he has no flank tenderness his urinalysis is negative. No fever chills no evidence infection likely muscular back pain with neuropathy discussed close outpatient follow-up. He is followed
by Dr. Sims of neuro. d/c with ED physician
Chronic conditions affecting care:
Chronic neuropathy diabetes
*Critical Care Note
Total Time (30-74mins, 75-104mins- exclusive of procedures): Not Applicable
ED Attending Note
-
Portions of this chart may have been created with voice recognition software.� Occasional wrong word or��sound alike� substitutions may have occurred due to the inherent limitations of voice recognition software.
Discharge Plan
Departure
Patient Disposition: Home (Routine Discharge)
Date of Disposition: 09/26/24
Time of Disposition: 17:41
Patient with high blood pressure during this ER visit?: No
Discharge Problem:
Back pain
Prescriptions:
No Action
hydrochlorothiazide 25 mg Tablet
25 mg PO DAILY Qty: 0
loratadine 10 MG tablet
10 mg PO DAILY
lorazepam 0.5 MG tablet
0.5 mg PO BIDPRN PRN (Reason: anxiety)
Patient Comments:
05/10/23 filled on 05/09/23 #10
irbesartan 300 mg Tablet
300 mg PO DAILY Qty: 0
metoprolol succinate [Toprol XL] 25 mg Tablet Extended Release 24 Hr
25 mg PO BID
fenofibrate nanocrystallized 145 mg Tablet
145 mg PO DAILY
acetaminophen 500 mg Tablet
1,000 mg PO Q6HPRN PRN (Reason: mild pain)
cholecalciferol (vitamin D3) [Vitamin D3] 125 mcg (5,000 unit) Tablet
125 mcg PO DAILY
fluticasone propionate [Flonase Allergy Relief] 50 mcg/actuation spray,suspension
1 spray intranasal DAILY Qty: 16 0RF
famotidine 20 mg Tablet
20 mg PO DAILY
pantoprazole [Protonix] 40 mg Tablet,Delayed Release (Dr/Ec)
40 mg PO DAILY
zinc 50 mg Capsule
50 mg PO DAILY
vilazodone
1 tab PO DAILY
clindamycin HCl [Cleocin HCl] 300 mg capsule
300 mg PO TID
ketorolac 10 mg tablet
10 mg PO Q8H 5 Days Qty: 15 0RF
wlytemjrpx-cimuwixprtihy-reax [Fioricet] 50-300-40 mg capsule
1 cap PO Q8H PRN (Reason: Pain) Qty: 10 0RF
clindamycin HCl 150 mg capsule
450 mg PO QID 10 Days Qty: 120 0RF
albuterol sulfate 2.5 mg/0.5 mL solution for nebulization
5 mg inhalation Q6H PRN (Reason: shortness of breath or wheezing) Qty: 30 0RF
pregabalin 100 mg capsule
100 mg PO BID Qty: 60 0RF
Referrals:
UNKNOWN - PT NOT,INTERVIEWE [Family Provider] -
Activity Restrictions/Additional Instructions:
As discussed the symptoms that you are describing are possibly from neuropathy. Please follow-up with both with your family doctor and your neurologist.
For back discomfort you may continue Tylenol however try to ice your back especially after working.
Follow-up with your family doctor the next several days and return if any worsening of symptoms
Interventions
Interventions:
*Risk Screen - Suicide Last Done: 09/26/24 14:26
*General Assessment Last Done: 09/26/24 13:37
*Neglect/Abuse Screening Last Done: 09/26/24 14:26
*ED- Fall Risk Assessment Last Done: 09/26/24 14:26
*ED COVID-19 Vaccine History Last Done: 09/26/24 14:26
*Nursing Disposition Last Done: 09/26/24 17:44
ED-Musculoskeletal Assessment Last Done: 09/26/24 14:30
Discharge Date and Time
Discharge Date/Time: 09/26/24 17:49
Print Language: [id number]
[2024-09-26 14:53] LABS: % Basophils 0.5 % (0-2); % Eosinophils 2.6 % (0-6); % Immature Granulocytes 0.4 % (0-0.5); % Lymphocytes 31.8 % (20.5-51.1); % Monocytes 6.6 % (1.7-9.3); % Neutrophils 58.1 % (42.2-75.2); Absolute Basophils 0.1 10^3/uL (0-0.2); Absolute Eosinophils 0.2 10^3/uL (0-0.7); Absolute Lymphocytes 2.9 10^3/uL (1.2-3.4); Absolute Monocytes 0.6 10^3/uL (0.1-0.6); Absolute Neutrophils 5.3 10^3/uL (1.4-6.5); Hematocrit 44.2 % (39.0-52.0); Hemoglobin 15.5 g/dL (13.0-18.0); Mean Corp Hgb Conc. 35.1 g/dL (33.0-37.0); Mean Corpuscular Hgb 30.1 pg (27.0-31.0); Mean Corpuscular Volume 85.8 fL (80.0-94.0); Mean Platelet Volume 10.6 fL (7.4-10.4); Nucleated Red Blood Cells % 0 % (-); Platelet Count 252 10^3/uL (130-400); Red Blood Cell Count 5.15 10^6/uL (4.70-6.10); Red Cell Dist. Width 13.4 % (11.5-14.5); White Blood Cell Count 9.2 10^3/uL (4.8-10.8)
[2024-09-26 15:09] LABS: Urine Albumin 1+ (Neg - Trace); Urine Bilirubin Negative (Negative); Urine Character Clear (Clear); Urine Color Yellow; Urine Glucose Negative (Negative); Urine Ketone Negative (Negative); Urine Leukocyte Negative (Negative); Urine Nitrite Negative (Negative); Urine Occult Blood Negative (Negative); Urine Urobilinogen 1+ (Neg - 1+)
[2024-09-26 15:19] LABS: Urine Mucus Many
[2024-09-26 15:19] LABS: Blood Urea Nitrogen 14 mg/dl (9-20); Calcium 10.2 mg/dl (8.4-10.2); Carbon Dioxide 26 mmol/L (22-30); Chloride 103 mmol/L (98-107); Estimated Creatinine Clearance > 125 ml/min; Glucose 129 mg/dl (70-99); Sodium 135 mmol/L (135-145); eGFR > 60.00
[2024-09-26 15:20] LABS: Urine Amorphous Seen
[2024-09-26 15:20] LABS: Troponin I < 0.012 ng/ml
[2024-09-26 15:21] LABS: Urine Red Blood Cell 0-2 /HPF (0-2); Urine White Cell 0-2 /HPF (0-5)
[2024-09-26 16:47] LABS: Magnesium 2.1 mg/dl (1.6-2.3); Potassium 4.1 mmol/L (3.5-5.1)
[2024-09-26 17:18] LABS: TSH Reflex To Free T4 0.69 uIU/ml (0.47-4.68)
== END 2024-09-26 17:49 | disposition home or self-care (01) ==
LOC: EMR 13:31
PROVIDERS: Nurse Practitioner; EMERGENCY PHYSICIAN Student in an Organized Health Care Education/Training Program
DX: M54.50 Low back pain, unspecified (principal); R07.89 Other chest pain; E11.9 Type 2 diabetes mellitus without complications; I10 Essential (primary) hypertension; G62.9 Polyneuropathy, unspecified; E78.00 Pure hypercholesterolemia, unspecified; K21.9 Gastro-esophageal reflux disease without esophagitis; J45.909 Unspecified asthma, uncomplicated; F17.200 Nicotine dependence, unspecified, uncomplicated; Z86.718 Personal history of other venous thrombosis and embolism; Z98.890 Other specified postprocedural states; Z79.899 Other long term (current) drug therapy
CPT/HCPCS: 99284; 80048; 81003; 81015; 83735; 84132; 84443; 84484; 85025; 93005

== ENCOUNTER 2024-10-26 22:13 | Emergency (ER) | payer OTHER, SELFPAY ==
[2024-10-26 22:16] VITALS: BP 123/78
[2024-10-26 22:47] LABS: % Basophils 0.7 % (0-2); % Eosinophils 3.9 % (0-6); % Immature Granulocytes 0.3 % (0-0.5); % Lymphocytes 39.6 % (20.5-51.1); % Monocytes 6.4 % (1.7-9.3); % Neutrophils 49.1 % (42.2-75.2); Absolute Basophils 0.1 10^3/uL (0-0.2); Absolute Eosinophils 0.4 10^3/uL (0-0.7); Absolute Lymphocytes 3.5 10^3/uL (1.2-3.4); Absolute Monocytes 0.6 10^3/uL (0.1-0.6); Absolute Neutrophils 4.4 10^3/uL (1.4-6.5); Hematocrit 42.8 % (39.0-52.0); Hemoglobin 14.8 g/dL (13.0-18.0); Mean Corp Hgb Conc. 34.6 g/dL (33.0-37.0); Mean Corpuscular Hgb 30.3 pg (27.0-31.0); Mean Corpuscular Volume 87.7 fL (80.0-94.0); Mean Platelet Volume 10.3 fL (7.4-10.4); Nucleated Red Blood Cells % 0 % (-); Platelet Count 244 10^3/uL (130-400); Red Blood Cell Count 4.88 10^6/uL (4.70-6.10); Red Cell Dist. Width 13.2 % (11.5-14.5); White Blood Cell Count 8.9 10^3/uL (4.8-10.8)
[2024-10-26 23:02] LABS: ALT (SGPT) 17 U/L (0-50); AST (SGOT) 21 U/L (17-59); Albumin 4.4 g/dl (3.5-5.0); Alkaline Phosphatase 41 U/L (38-126); Blood Urea Nitrogen 16 mg/dl (9-20); Calcium 10.4 mg/dl (8.4-10.2); Carbon Dioxide 28 mmol/L (22-30); Chloride 105 mmol/L (98-107); Glucose 184 mg/dl (70-99); Potassium 3.8 mmol/L (3.5-5.1); Sodium 141 mmol/L (135-145); Total Bilirubin 0.6 mg/dl (0.2-1.3); Total Protein 6.9 g/dl (6.3-8.2); eGFR > 60.00
--- NOTE | 2024-10-27 00:21 | ED.GENMED ---
History of Present Illness
<Cade Gonzalez Jr., PA-C - Last Filed: 10/27/24 08:11>
General
Chief Complaint: Headache
Source: patient and spouse
Exam Limitations: none
Time Seen by Provider: 10/26/24 23:54
Nursing documentation reviewed up to this point in time: agreed with
History of Present Illness
History of Present Illness:
39-year-old male past medical history of previous brain injury, IBS diabetes panic attacks presenting to the emergency department today with concerns of migraine ongoing over the past week. Also has some tingling into the left arm and left leg.
Had an elevated blood pressure at home with a wrist cuff. He called EMS blood pressure was normal at that point. Denies any chest pain shortness of breath. Headache is frontal throbbing.
Past History
<Cade Gonzalez Jr., PA-C - Last Filed: 10/27/24 08:11>
Past History
ED Past Medical History: Asthma, GERD, HTN, Hypercholesterolemia, Psychiatric (Anxiety, Depression. Panic attacks) and Other (Obesity, Barrets esophagus, Gastritis, IBS, Cerebral hematoma, DVT)
ED Past Surgical History: Brain, Cardiac (Cardiac catheterization 2 years ago that was normal) and Other (Craniotomy for subdural hematoma)
Patient has exhibited threatening behavior?: No
PSI?: No
Social History
Tobacco: Smoker
Alcohol: Occasional
Drug: Former user (Opiates, cocaine) and Marijuana
Personal: Single
Living: with family
Employment: Employed
Family History
Family History: Diabetes, Hypertension and CAD (Grandmother with triple bypass); Negative Early CAD
Review of Systems
<ALEXI Shabazz Jr. Last Filed: 10/27/24 08:11>
Review of Systems
Allergies reviewed?: Yes
All Other Systems: ROS reviewed and negative except as documented in HPI and ROS
Phy Exam
<Cade Gonzalez Jr., PA-C - Last Filed: 10/27/24 08:11>
Physical Exam
Physical Exam:
GENERAL: Alert , in no apparent distress
EYE: pupils equal and reactive
NECK: Supple, no significant adenopathy.
ENT: o/p clr, mmm.
CARDIAC: Regular rate and rhythm .
LUNGS: Clear breath sounds bilaterally, no acute respiratory distress, no wheezes/rales/rhonchi
ABDOMEN: Soft, without focal tenderness, no r/g, no cvat
NEUROLOGICAL: Alert and oriented, no focal neuro deficits 5-5 upper and lower extremity strength normal sensation with palpating bilaterally normal finger-nose and hmbd-zt-ccsw no pronator drift
SKIN: Warm and dry, skin intact.
MUSCULOSKELETAL: No edema, well perfused.
PSYCH: Normal and appropriate interaction.
Course
<Cade Gonzalez Jr., PA-C - Last Filed: 10/27/24 08:11>
Orders/Labs/Results
Orders:
Orders
10/26/24 22:36
CMP [Comprehensive Metabolic Panel] Urgent
Complete Blood Count/With Diff Urgent
Lyme Progressive Urgent
Comment: ADD ON
10/27/24 00:09
0.9% Sodium Chloride 1000 ml [Nss] 1,000 ml IV BOLUS
Dexamethasone Sod Phosphate [Decadron] 10 mg IV NOW STA
Diphenhydramine [Benadryl] 25 mg IV NOW STA
Ketorolac [Toradol] 15 mg IV NOW STA
Metoclopramide [Reglan] 10 mg IV NOW STA
10/27/24 00:31
Add On- LAB Urgent
Tests Added?: lyme screen IgG & IgM
10/27/24 01:37
CT Head W/o Iv Contrast Urgent
Comment:
Reason For Exam: headache, syncopal episodes
Abnormal Lab Results
10/26/24
22:36
Absolute Lymphs (auto) 3.5 H 10^3/uL
(1.2-3.4)
Glucose 184 H mg/dl
(70-99)
Calcium 10.4 H mg/dl
(8.4-10.2)
10/26/24 22:36
10/26/24 22:36
Vital Signs
Initial and Last Documented VS:
Initial Vital Signs
Temp Pulse Resp BP Pulse Ox
98.5 F 79 18 123/78 98
10/26/24 22:16 10/26/24 22:16 10/26/24 22:16 10/26/24 22:16 10/26/24 22:16
Last Documented Vital Signs
Temp Pulse Resp BP Pulse Ox
98.5 F 77 14 127/91 97
10/26/24 22:16 10/27/24 03:06 10/27/24 03:06 10/27/24 03:06 10/27/24 03:06
<Carmelina Lui PA-C - Last Filed: 10/27/24 03:04>
Orders/Labs/Results
Orders:
Orders
10/26/24 22:36
CMP [Comprehensive Metabolic Panel] Urgent
Complete Blood Count/With Diff Urgent
Lyme Progressive Urgent
Comment: ADD ON
10/27/24 00:09
0.9% Sodium Chloride 1000 ml [Nss] 1,000 ml IV BOLUS
Dexamethasone Sod Phosphate [Decadron] 10 mg IV NOW STA
Diphenhydramine [Benadryl] 25 mg IV NOW STA
Ketorolac [Toradol] 15 mg IV NOW STA
Metoclopramide [Reglan] 10 mg IV NOW STA
10/27/24 00:31
Add On- LAB Urgent
Tests Added?: lyme screen IgG & IgM
10/27/24 01:37
CT Head W/o Iv Contrast Urgent
Comment:
Reason For Exam: headache, syncopal episodes
Abnormal Lab Results
10/26/24
22:36
Absolute Lymphs (auto) 3.5 H 10^3/uL
(1.2-3.4)
Glucose 184 H mg/dl
(70-99)
Calcium 10.4 H mg/dl
(8.4-10.2)
10/26/24 22:36
10/26/24 22:36
Vital Signs
Initial and Last Documented VS:
Initial Vital Signs
Temp Pulse Resp BP Pulse Ox
98.5 F 79 18 123/78 98
10/26/24 22:16 10/26/24 22:16 10/26/24 22:16 10/26/24 22:16 10/26/24 22:16
Last Documented Vital Signs
Temp Pulse Resp BP Pulse Ox
98.5 F 77 14 127/91 97
10/26/24 22:16 10/27/24 03:06 10/27/24 03:06 10/27/24 03:06 10/27/24 03:06
<Cade Gonzalez Jr., PA-C - Last Filed: 10/27/24 08:11>
MDM/Problems Addressed
MDM/Problems Addressed:
39-year-old male presenting to the emergency department today with concerns of headache ongoing for the past week. Does have a long history of migraines and follows up with a neurologist for this. Plan to treat with migraine cocktail. He also was
concerned that he did have some decreased strength and sensation to the left upper and left lower extremities. This is new for him. Concerning this CT scan was ordered. He has had similar symptoms over the past few weeks though.
<Carmelina Lui PA-C - Last Filed: 10/27/24 03:04>
*Critical Care Note
Total Time (30-74mins, 75-104mins- exclusive of procedures): Not Applicable
<Carmelina Lui PA-C - Last Filed: 10/27/24 03:04>
Update Note
Update Note:
Update
Carmelina Lui PA-C
Patient received upon signout. On exam, patient seen sleeping comfortably. I did wake patient up. Patient reports that he still has a headache but does note that is improved from earlier and feels well enough to go home. Did review CAT scan
findings with patient which were unremarkable. Patient's blood pressure of note has normalized as well. Blood pressure earlier at home likely elevated due to pain. Patient stable to follow-up with Dr. Sims.
ED Attending Note
<Cade Gonzalez Jr., PA-C - Last Filed: 10/27/24 08:11>
-
Portions of this chart may have been created with voice recognition software.� Occasional wrong word or��sound alike� substitutions may have occurred due to the inherent limitations of voice recognition software.
Discharge Plan
Departure
Patient Disposition: Home (Routine Discharge)
Date of Disposition: 10/27/24
Time of Disposition: 02:53
Patient with high blood pressure during this ER visit?: No
Condition: Good
Discharge Problem:
Migraine headache
Instructions: Migraines (DC), Headache, Adult (DC)
Prescriptions:
No Action
hydrochlorothiazide 25 mg Tablet
25 mg PO DAILY Qty: 0
loratadine 10 MG tablet
10 mg PO DAILY
lorazepam 0.5 MG tablet
0.5 mg PO BIDPRN PRN (Reason: anxiety)
Patient Comments:
05/10/23 filled on 05/09/23 #10
irbesartan 300 mg Tablet
300 mg PO DAILY Qty: 0
metoprolol succinate [Toprol XL] 25 mg Tablet Extended Release 24 Hr
25 mg PO BID
fenofibrate nanocrystallized 145 mg Tablet
145 mg PO DAILY
acetaminophen 500 mg Tablet
1,000 mg PO Q6HPRN PRN (Reason: mild pain)
cholecalciferol (vitamin D3) [Vitamin D3] 125 mcg (5,000 unit) Tablet
125 mcg PO DAILY
fluticasone propionate [Flonase Allergy Relief] 50 mcg/actuation spray,suspension
1 spray intranasal DAILY Qty: 16 0RF
famotidine 20 mg Tablet
20 mg PO DAILY
pantoprazole [Protonix] 40 mg Tablet,Delayed Release (Dr/Ec)
40 mg PO DAILY
zinc 50 mg Capsule
50 mg PO DAILY
vilazodone
1 tab PO DAILY
clindamycin HCl [Cleocin HCl] 300 mg capsule
300 mg PO TID
ketorolac 10 mg tablet
10 mg PO Q8H 5 Days Qty: 15 0RF
sexwyghhxn-dhwggrwmrdoqv-emtm [Fioricet] 50-300-40 mg capsule
1 cap PO Q8H PRN (Reason: Pain) Qty: 10 0RF
clindamycin HCl 150 mg capsule
450 mg PO QID 10 Days Qty: 120 0RF
albuterol sulfate 2.5 mg/0.5 mL solution for nebulization
5 mg inhalation Q6H PRN (Reason: shortness of breath or wheezing) Qty: 30 0RF
pregabalin 100 mg capsule
100 mg PO BID Qty: 60 0RF
Referrals:
Mathieu Loyd MD [Family Provider] -
Activity Restrictions/Additional Instructions:
Your CT scan was normal.
Please follow up with Dr. Sims.
PLEASE RETURN TO THE ER SHOULD YOU DEVELOP AN ACUTE WORSENING OF YOUR SYMPTOMS, CHEST PAIN, SHORTNESS OF BREATH, VISUAL LOSS, INTRACTABLE NAUSEA OR VOMITING, NECK STIFFNESS, OR ANY OTHER SIGNS OR SYMPTOMS WORRISOME TO YOU.
Interventions
Interventions:
*Risk Screen - Suicide Last Done: 10/26/24 22:16
*General Assessment Last Done: 10/26/24 22:16
*Neglect/Abuse Screening Last Done: 10/26/24 22:16
*ED- Fall Risk Assessment Last Done: 10/26/24 22:16
*ED COVID-19 Vaccine History Last Done: 10/26/24 22:16
*Nursing Disposition Last Done: 10/27/24 03:10
ED- Neurological Assessment Last Done: 10/27/24 01:03
Discharge Date and Time
Discharge Date/Time: 10/27/24 03:10
Print Language: SETSWANA
[2024-10-27 00:34] VITALS: BMI 39.2
[2024-10-27 00:35] VITALS: BP 122/70
[2024-10-27] MEDS: NSS 1000 IV (00:48)
[2024-10-27] MEDS: TORADOL 15 MG IV (00:52)
[2024-10-27] MEDS: BENADRYL 25 MG IV (00:54)
[2024-10-27] MEDS: DECADRON 10 MG IV (00:56)
[2024-10-27] MEDS: REGLAN 10 MG IV (01:00)
--- NOTE | 2024-10-27 01:04 | EDRN ---
Pt with generalized headache 'I can't pinpoint exactly where' that got worse throughout yesterday. Pt took compazine and tylenol without relief. Pt has photophobia and some dizziness. No n/v. Pt adds his bp has been elevated recently.
[2024-10-27 03:06] VITALS: BP 127/91
[2024-10-27 11:53] LABS: Lyme Antibody Screen, EIA Negative (Negative)
== END 2024-10-27 03:10 | disposition home or self-care (01) ==
LOC: EMR 22:13
PROVIDERS: Emergency Medicine; EMERGENCY PHYSICIAN Emergency Medicine; FAMILY PHYSICIAN Family Medicine
DX: G43.909 Migraine, unspecified, not intractable, without status migrainosus (principal); M62.81 Muscle weakness (generalized); R42 Dizziness and giddiness; H53.8 Other visual disturbances; R20.2 Paresthesia of skin; K58.9 Irritable bowel syndrome, unspecified; E11.9 Type 2 diabetes mellitus without complications; F41.0 Panic disorder [episodic paroxysmal anxiety]; E78.00 Pure hypercholesterolemia, unspecified; K21.9 Gastro-esophageal reflux disease without esophagitis; E66.9 Obesity, unspecified; K22.70 Barrett's esophagus without dysplasia; F32.A Depression, unspecified; F41.9 Anxiety disorder, unspecified; I10 Essential (primary) hypertension; J45.909 Unspecified asthma, uncomplicated; F17.200 Nicotine dependence, unspecified, uncomplicated; Z87.820 Personal history of traumatic brain injury; Z86.718 Personal history of other venous thrombosis and embolism; Z86.16 Personal history of COVID-19; Z88.6 Allergy status to analgesic agent; Z88.1 Allergy status to other antibiotic agents; Z88.0 Allergy status to penicillin; Z88.2 Allergy status to sulfonamides
CPT/HCPCS: 99284; 96374; 96375 ×3; 96361; 70450; 80053; 85025; 86618

== ENCOUNTER 2025-04-03 15:27 | Emergency (ER) | payer OTHER, SELFPAY ==
[2025-04-03 15:30] VITALS: BP 116/78
[2025-04-03 15:56] LABS: Hematocrit 42.1 % (39.0-52.0); Hemoglobin 14.2 g/dL (13.0-18.0); Mean Corp Hgb Conc. 33.7 g/dL (33.0-37.0); Mean Corpuscular Volume 87.7 fL (80.0-94.0); Nucleated Red Blood Cells % 0 % (-); Platelet Count 217 10^3/uL (130-400); Red Cell Dist. Width 12.8 % (11.5-14.5)
[2025-04-03 16:22] LABS: ALT (SGPT) 21 U/L (0-50); AST (SGOT) 22 U/L (17-59); Albumin 4.6 g/dl (3.5-5.0); Alkaline Phosphatase 37 U/L (38-126); Blood Urea Nitrogen 17 mg/dl (9-20); Calcium 9.9 mg/dl (8.4-10.2); Carbon Dioxide 30 mmol/L (22-30); Chloride 102 mmol/L (98-107); Glucose 154 mg/dl (70-99); Potassium 4.3 mmol/L (3.5-5.1); Sodium 138 mmol/L (135-145); Total Protein 7.0 g/dl (6.3-8.2); eGFR > 60.00
--- NOTE | 2025-04-03 18:52 | ED.GENMED ---
History of Present Illness
General
Chief Complaint: Back Pain
Source: patient
Exam Limitations: none
Time Seen by Provider: 04/03/25 18:06
Nursing documentation reviewed up to this point in time: agreed with
History of Present Illness
History of Present Illness:
Patient is a 39-year-old male with past medical history of hypertension, diabetes, GERD, gastritis, IBS, asthma, migraine headaches, depression, anxiety, idiopathic sinus tachycardia, who presents to the emergency department from home for evaluation
of right-sided low back pain. Patient reports that 2 days ago he developed URI symptoms accompanied by a heavy cough which is productive of brown mucus. He reports that he went to urgent care yesterday and was tested for COVID-19 and influenza.
He reports that these tests were negative. He was told that he had sinusitis and bronchitis. He was started on doxycycline and has had 2 doses of it. Patient reports that this morning he woke up with right sided back pain. Patient reports that
he has had back pain in the past but that this feels different. He reports that he has tried stretching but it has not improved his pain. Patient denies taking medication for the pain such as ibuprofen. He reports he has been taking Tylenol for
his URI symptoms but it does not seem to make much of a difference in the back pain. Patient denies any recent fevers. Patient denies abdominal pain, nausea, vomiting. Patient denies dysuria, hematuria, urethral discharge, testicular pain or
swelling. Patient denies history of kidney stones or kidney infections in the past. Patient states that he decided to come to the emergency department today as he is concerned that he might have pneumonia and is also concerned for his kidney
function given his history of diabetes.
Past History
Past History
ED Past Medical History: Asthma, GERD, HTN, Hypercholesterolemia, Psychiatric (Anxiety, Depression. Panic attacks) and Other (Obesity, Barrets esophagus, Gastritis, IBS, Cerebral hematoma, DVT)
ED Past Surgical History: Brain, Cardiac (Cardiac catheterization 2 years ago that was normal) and Other (Craniotomy for subdural hematoma)
Patient has exhibited threatening behavior?: No
PSI?: No
Social History
Tobacco: Smoker
Alcohol: Occasional
Drug: Former user (Opiates, cocaine) and Marijuana
Personal: Single
Living: with family
Employment: Employed
Family History
Family History: Diabetes, Hypertension and CAD (Grandmother with triple bypass); Negative Early CAD
Review of Systems
Review of Systems
Allergies reviewed?: Yes
All Other Systems: Not applicable
Constitutional: Reports no symptoms; Denies fever
EENT: Reports sore throat and runny nose
Respiratory: Reports cough; Denies trouble breathing
Cardiac: Reports no symptoms
ABD/GI: Reports no symptoms; Denies abdominal pain, nausea or vomiting
: Reports no symptoms; Denies dysuria or urgency
Musculoskeletal: Reports back pain (right sided)
Skin: Reports no symptoms
Neurological: Reports no symptoms
Endocrine: Reports no symptoms
Hematologic/Lymphatic: Reports no symptoms
Psychiatric: Reports no symptoms
Phy Exam
General Physical Exam
General Presentation: well appearing and no apparent distress
General Skin: warm and dry
General Habitus: normal
General Mental: alert
General Hydration: appears well hydrated
ENT Exam
ENT Exam: EOMI, pharynx normal, neck supple, normocephalic and other (mild bilateral tonsillar edema, boggy turbinates)
Eye Exam
Eye Exam: conjunctiva normal
Cardiovascular Exam
Cardiovascular Exam: regular rate/rhythm, no edema, no murmur and normal peripheral pulses
Pulmonary Exam
Pulmonary Exam: lungs clear, no respiratory distress, no rales, no crackles, no rhonchi, no stridor, no wheezing and no cough
Gastrointestinal Exam
Gastrointestinal Exam: non tender, soft and non distended
Neurological Exam
Neurological Exam: alert, oriented x3, no motor deficits and speech normal
Musculoskeletal Exam
Musculoskeletal Exam: full ROM, no edema and other (no CVA tenderness bilaterally, no ttp to the back including the midline, pt able to sit, stand, and walk without difficulty)
Skin Exam
Skin Exam: normal color, warm/dry, no rash and no petechia
Psychiatric Exam
Psychiatric Exam: normal mood/affect
Course
Orders/Labs/Results
Orders:
Orders
04/03/25 15:34
CR Chest - 2 Views Urgent
Comment:
Reason For Exam: suspected infection
04/03/25 15:45
Complete Blood Count/With Diff Urgent
Comprehensive Metabolic Panel Urgent
04/03/25 18:47
UA Reflex to Culture [Urinalysis Reflex To Culture] Urgent
Date Specimen was Collected: 04/03/25
Time Specimen was Collected: 15:35
Urine Microscopic Reflex Cult Urgent
Abnormal Lab Results
04/03/25 04/03/25
15:45 18:47
MPV 10.7 H fL
(7.4-10.4)
Abs Immat Gran (auto) 0.1 H 10^3/uL
(0-0.05)
Absolute Monos (auto) 1.0 H 10^3/uL
(0.1-0.6)
Monocytes % 11.0 H %
(1.7-9.3)
Glucose 154 H mg/dl
(70-99)
Alkaline Phosphatase 37 L U/L
(38-126)
Urine Bacteria (Reflex) Few A
(Negative)
Urine Albumin (Reflex) 1+ A
(Neg - Trace)
04/03/25 15:45
04/03/25 15:45
Vital Signs
Initial and Last Documented VS:
Initial Vital Signs
Temp Pulse Resp BP Pulse Ox
98 F 93 18 116/78 95
04/03/25 15:30 04/03/25 15:30 04/03/25 15:30 04/03/25 15:30 04/03/25 15:30
Last Documented Vital Signs
Temp Pulse Resp BP Pulse Ox
98 F 93 18 116/78 95
04/03/25 15:30 04/03/25 15:30 04/03/25 15:30 04/03/25 15:30 04/03/25 18:56
*Pulse Oximetry
SaO2: 95
Oxygen Mode of Delivery: Room air
Patient hypoxic: no
*Critical Care Note
Total Time (30-74mins, 75-104mins- exclusive of procedures): Not Applicable
Update Note
Update Note:
39-year-old male with past medical history as noted presents to the emergency department for evaluation of right-sided low back pain in the setting of recent URI symptoms with a cough. Patient currently on antibiotics for reported sinusitis and
bronchitis from an urgent care facility. On arrival, patient's vital signs are stable, he is afebrile. On examination, the patient is well-appearing, he is in no acute distress, he has no reproducible flank or back tenderness, he has a normal
cardiopulmonary exam. Chest x-ray was obtained while the patient was in the waiting room and demonstrates no evidence of pneumonia, no abnormality to account for the patient's back pain today. Labs were also drawn and are reassuring, patient has
no leukocytosis and normal renal function. A urinalysis was obtained and demonstrates no blood to suggest a kidney stone, no infection to suggest pyelonephritis. At this time I am more suspicious for a musculoskeletal cause of the patient's back
pain particularly in light of the patient's recent frequent coughing. I feel the patient is safe for discharge home with instructions on supportive care measures, close outpatient follow-up with his PCP to ensure resolution of his symptoms along
with strict return precautions. Patient expressed understanding of the plan and agreed.
ED Attending Note
-
Portions of this chart may have been created with voice recognition software.� Occasional wrong word or��sound alike� substitutions may have occurred due to the inherent limitations of voice recognition software.
Discharge Plan
Departure
Patient Disposition: Home (Routine Discharge)
Date of Disposition: 04/03/25
Time of Disposition: 19:33
Patient with high blood pressure during this ER visit?: No
Condition: Good
Covid-19: Not Applicable
Discharge Problem:
Acute right-sided low back pain
Instructions: Low Back Pain (DC)
Prescriptions:
No Action
hydrochlorothiazide 25 mg Tablet
25 mg PO DAILY Qty: 0
loratadine 10 MG tablet
10 mg PO DAILY
lorazepam 0.5 MG tablet
0.5 mg PO BIDPRN PRN (Reason: anxiety)
Patient Comments:
05/10/23 filled on 05/09/23 #10
irbesartan 300 mg Tablet
300 mg PO DAILY Qty: 0
metoprolol succinate [Toprol XL] 25 mg Tablet Extended Release 24 Hr
25 mg PO BID
fenofibrate nanocrystallized 145 mg Tablet
145 mg PO DAILY
acetaminophen 500 mg Tablet
1,000 mg PO Q6HPRN PRN (Reason: mild pain)
cholecalciferol (vitamin D3) [Vitamin D3] 125 mcg (5,000 unit) Tablet
125 mcg PO DAILY
fluticasone propionate [Flonase Allergy Relief] 50 mcg/actuation spray,suspension
1 spray intranasal DAILY Qty: 16 0RF
famotidine 20 mg Tablet
20 mg PO DAILY
pantoprazole [Protonix] 40 mg Tablet,Delayed Release (Dr/Ec)
40 mg PO DAILY
zinc 50 mg Capsule
50 mg PO DAILY
vilazodone
1 tab PO DAILY
clindamycin HCl [Cleocin HCl] 300 mg capsule
300 mg PO TID
ketorolac 10 mg tablet
10 mg PO Q8H 5 Days Qty: 15 0RF
qsbrwgqcjk-kdofhlvwnbvvy-xlmw [Fioricet] 50-300-40 mg capsule
1 cap PO Q8H PRN (Reason: Pain) Qty: 10 0RF
clindamycin HCl 150 mg capsule
450 mg PO QID 10 Days Qty: 120 0RF
albuterol sulfate 2.5 mg/0.5 mL solution for nebulization
5 mg inhalation Q6H PRN (Reason: shortness of breath or wheezing) Qty: 30 0RF
pregabalin 100 mg capsule
100 mg PO BID Qty: 60 0RF
Referrals:
Mathieu Loyd MD [Family Provider, [facility]]
Activity Restrictions/Additional Instructions:
You were seen in the emergency department for evaluation of right sided back pain. While you were in the emergency department you had a chest x-ray which showed no evidence of pneumonia. You had blood work performed which showed normal kidney
function and no other dangerous abnormalities. You had a urinalysis which did not demonstrate evidence of infection to suggest a kidney infection, there was no evidence of blood to suggest a kidney stone. We suspect that your pain could be more
musculoskeletal in etiology. We recommend that you continue to take Tylenol if needed for pain. If you are permitted to, you may also take ibuprofen as an anti-inflammatory. You may alternate ice and heat to the affected areas for 20 minutes at a
time 4-5 times a day. Please follow-up with your primary care provider within the next 2 to 3 days to ensure improvement in your symptoms. Please return to the emergency department if you develop severe worsening pain, severe abdominal pain,
persistent vomiting, fever greater than 100.4 �F, or for any other worsening or concerning symptoms.
Interventions
Interventions:
*Risk Screen - Suicide Last Done: 04/03/25 15:30
*General Assessment Last Done: 04/03/25 19:30
*Neglect/Abuse Screening Last Done: 04/03/25 15:30
*Nursing Disposition Last Done: 04/03/25 19:49
ED-Musculoskeletal Assessment Last Done: 04/03/25 19:48
Discharge Date and Time
Discharge Date/Time: 04/03/25 19:50
Print Language: YORUBA
[2025-04-03 19:15] LABS: Urine Character Clear (Clear)
[2025-04-03 19:29] LABS: Urine Red Blood Cell 0-2 /HPF (0-2); Urine White Cell 0-2 /HPF (0-5)
== END 2025-04-03 19:50 | disposition home or self-care (01) ==
LOC: EMR 15:27
PROVIDERS: Emergency Medicine; EMERGENCY PHYSICIAN Emergency Medicine; FAMILY PHYSICIAN Family Medicine
DX: M54.50 Low back pain, unspecified (principal); I10 Essential (primary) hypertension; E11.9 Type 2 diabetes mellitus without complications; E78.00 Pure hypercholesterolemia, unspecified; J45.909 Unspecified asthma, uncomplicated; F17.200 Nicotine dependence, unspecified, uncomplicated; Z86.718 Personal history of other venous thrombosis and embolism
CPT/HCPCS: 99284; 71046; 80053; 81003; 81015; 85025

== ENCOUNTER 2025-04-04 22:01 | Emergency (ER) | payer OTHER, SELFPAY ==
[2025-04-04 22:03] VITALS: BP 124/78
[2025-04-04 22:28] LABS: Hematocrit 41.8 % (39.0-52.0); Hemoglobin 14.4 g/dL (13.0-18.0); Mean Corp Hgb Conc. 34.4 g/dL (33.0-37.0); Mean Corpuscular Volume 86.7 fL (80.0-94.0); Nucleated Red Blood Cells % 0 % (-); Platelet Count 232 10^3/uL (130-400); Red Cell Dist. Width 12.9 % (11.5-14.5)
[2025-04-04 22:47] LABS: ALT (SGPT) 21 U/L (0-50); AST (SGOT) 19 U/L (17-59); Albumin 4.6 g/dl (3.5-5.0); Alkaline Phosphatase 39 U/L (38-126); Blood Urea Nitrogen 21 mg/dl (9-20); Calcium 10.2 mg/dl (8.4-10.2); Carbon Dioxide 28 mmol/L (22-30); Chloride 104 mmol/L (98-107); Glucose 211 mg/dl (70-99); Potassium 4.2 mmol/L (3.5-5.1); Sodium 140 mmol/L (135-145); Total Protein 7.1 g/dl (6.3-8.2); eGFR > 60.00
[2025-04-04 22:51] LABS: Troponin I < 0.012 ng/ml
--- NOTE | 2025-04-05 00:03 | ED.GENMED ---
History of Present Illness
<Kai Durand MD, Resident - Last Filed: 04/05/25 03:23>
General
Chief Complaint: Chest Pain
Source: patient
Time Seen by Provider: 04/04/25 23:21
History of Present Illness
History of Present Illness:
Patient is a 39-year-old male who presents to the emergency department with complaints of chest pain, arm tightness and when he checked his blood pressure at home it was 165/128. He has a history of frequent migraines, asthma, nicotine dependence,
hypertension, obesity, Busby's esophagus, gastritis, irritable bowel syndrome, GERD, diabetes controlled by diet, anxiety, panic attacks, and depression. he was recently seen yesterday at the emergency department for back pain after he presented
to the urgent care and was told that he had sinusitis and bronchitis. He was started on doxycycline and took 2 doses prior to his presentation to the emergency department yesterday and he has continued to take his doxycycline as instructed. He
denies any abdominal pain, nausea, or vomiting. Area, hematuria, urethral discharge, testicular pain or swelling. His oral intake has been okay and he has had his normal meals today. He smokes 1 pack of cigarettes daily and he vapes. He denies
any shortness of breath or chest pain during my encounter with the patient. The patient was on the toilet having a bowel movement when unfortunately while he was having the movement he had sensation of heat, sweating, and a burning sensation in
his mid chest which made the patient worried and suspect that he may be having a heart attack leading to his presentation in the emergency department.
Past History
<Kai Durand MD, Resident - Last Filed: 04/05/25 03:23>
Past History
ED Past Medical History: Asthma, GERD, HTN, Hypercholesterolemia, Psychiatric (Anxiety, Depression. Panic attacks) and Other (Obesity, Barrets esophagus, Gastritis, IBS, Cerebral hematoma, DVT)
ED Past Surgical History: Brain, Cardiac (Cardiac catheterization 2 years ago that was normal) and Other (Craniotomy for subdural hematoma)
Patient has exhibited threatening behavior?: No
PSI?: No
Social History
Tobacco: Smoker
Alcohol: Occasional
Drug: Former user (Opiates, cocaine) and Marijuana
Personal: Single
Living: with family
Employment: Employed
Family History
Family History: Diabetes, Hypertension and CAD (Grandmother with triple bypass); Negative Early CAD
Review of Systems
<Kai Durand MD, Resident - Last Filed: 04/05/25 03:23>
Review of Systems
Constitutional: Reports no symptoms
EENT: Reports no symptoms
Respiratory: Reports no symptoms
Cardiac: Reports chest pain and diaphoresis; Denies palpitations or syncope
ABD/GI: Reports diarrhea; Denies abdominal pain, nausea or vomiting
: Reports no symptoms
Musculoskeletal: Reports no symptoms
Skin: Reports no symptoms
Neurological: Reports no symptoms
Endocrine: Reports no symptoms
Hematologic/Lymphatic: Reports no symptoms
Psychiatric: Reports no symptoms
Phy Exam
<Kai Durand MD, Resident - Last Filed: 04/05/25 03:23>
General Physical Exam
General Presentation: well appearing and no apparent distress
General age: appears stated age
General Skin: warm and dry
General Habitus: normal
General Mental: alert
General Hydration: appears well hydrated
Cardiovascular Exam
Cardiovascular Exam: regular rate/rhythm, no edema, no gallop, no JVD and no murmur
Pulmonary Exam
Pulmonary Exam: lungs clear, no respiratory distress, no rales, chest non tender, no crackles, no rhonchi, no stridor, no wheezing and no cough
Skin Exam
Skin Exam: normal color, warm/dry, no rash and no petechia
Psychiatric Exam
Psychiatric Exam: anxious
Scores
<Kai Durand MD, Resident - Last Filed: 04/05/25 03:23>
Heart Score for Chest Pain Patients
Heart Score for Chest Pain Patients: 1
Heart Score Risk: 2.5% MACE over next 6 weeks
<Sarai Newby, DO - Last Filed: 04/05/25 07:45>
Heart Score for Chest Pain Patients
STEMI patient?: No
History: Slightly or Non-Suspicious
ECG: Normal
Age: </= 45 years
Risk Factors: 1 or 2 Risk Factors
Troponin: </= Normal Limit
Heart Score for Chest Pain Patients: 1
Heart Score Risk: 2.5% MACE over next 6 weeks
Course
<Kai Durand MD, Resident - Last Filed: 04/05/25 03:23>
Orders/Labs/Results
Orders:
Orders
04/04/25 22:09
Electrocardiogram (*1) Urgent
Reason for Study: Other
Other Reason for Exam: Possible Sepsis
EKG- Treatment ONCE
04/04/25 22:21
Complete Blood Count/With Diff Urgent
Comprehensive Metabolic Panel Urgent
Troponin I Urgent
04/05/25 00:30
Troponin I Urgent
04/05/25 00:47
Mag Hydrox/Al Hydrox/Simeth [Maalox] 30 ml Phenobarb/Hyoscy/Atropine/Scop [] 10 ml Viscous Lidocaine 2% [Xylocaine Viscous Cup] 10 ml PO NOW
Sucralfate Suspension [Carafate Suspension] 1 gm PO NOW STA
04/05/25 01:02
Mag Hydrox/Al Hydrox/Simeth [Maalox] 30 ml .ROUTE .STK-MED ONE
Phenobarb/Hyoscy/Atropine/Scop [] 10 ml .ROUTE .STK-MED ONE
Viscous Lidocaine 2% [Xylocaine Viscous Cup] 15 ml .ROUTE .STK-MED ONE
04/05/25 01:06
Sucralfate Suspension [Carafate Suspension] 1 gm .ROUTE .STK-MED ONE
Abnormal Lab Results
04/04/25
22:21
MPV 10.7 H fL
(7.4-10.4)
Absolute Monos (auto) 0.8 H 10^3/uL
(0.1-0.6)
Monocytes % 9.6 H %
(1.7-9.3)
BUN 21 H mg/dl
(9-20)
Glucose 211 H mg/dl
(70-99)
04/04/25 22:21
04/04/25 22:21
Vital Signs
Initial and Last Documented VS:
Initial Vital Signs
Temp Pulse Resp BP Pulse Ox
98.1 F 95 20 124/78 97
04/04/25 22:03 04/04/25 22:03 04/04/25 22:03 04/04/25 22:03 04/04/25 22:03
Last Documented Vital Signs
Temp Pulse Resp BP Pulse Ox
98.1 F 87 21 133/93 94
04/04/25 22:03 04/05/25 00:45 04/05/25 00:45 04/05/25 00:23 04/05/25 00:45
<Sarai Newby, DO - Last Filed: 04/05/25 07:45>
Orders/Labs/Results
Orders:
Orders
04/04/25 22:09
Electrocardiogram (*1) Urgent
Reason for Study: Other
Other Reason for Exam: Possible Sepsis
EKG- Treatment ONCE
04/04/25 22:21
Complete Blood Count/With Diff Urgent
Comprehensive Metabolic Panel Urgent
Troponin I Urgent
04/05/25 00:30
Troponin I Urgent
04/05/25 00:47
Mag Hydrox/Al Hydrox/Simeth [Maalox] 30 ml Phenobarb/Hyoscy/Atropine/Scop [] 10 ml Viscous Lidocaine 2% [Xylocaine Viscous Cup] 10 ml PO NOW
Sucralfate Suspension [Carafate Suspension] 1 gm PO NOW STA
04/05/25 01:02
Mag Hydrox/Al Hydrox/Simeth [Maalox] 30 ml .ROUTE .STK-MED ONE
Phenobarb/Hyoscy/Atropine/Scop [] 10 ml .ROUTE .STK-MED ONE
Viscous Lidocaine 2% [Xylocaine Viscous Cup] 15 ml .ROUTE .STK-MED ONE
04/05/25 01:06
Sucralfate Suspension [Carafate Suspension] 1 gm .ROUTE .STK-MED ONE
Abnormal Lab Results
04/04/25
22:21
MPV 10.7 H fL
(7.4-10.4)
Absolute Monos (auto) 0.8 H 10^3/uL
(0.1-0.6)
Monocytes % 9.6 H %
(1.7-9.3)
BUN 21 H mg/dl
(9-20)
Glucose 211 H mg/dl
(70-99)
04/04/25 22:21
04/04/25 22:21
Vital Signs
Initial and Last Documented VS:
Initial Vital Signs
Temp Pulse Resp BP Pulse Ox
98.1 F 95 20 124/78 97
04/04/25 22:03 04/04/25 22:03 04/04/25 22:03 04/04/25 22:03 04/04/25 22:03
Last Documented Vital Signs
Temp Pulse Resp BP Pulse Ox
98.1 F 87 21 133/93 94
04/04/25 22:03 04/05/25 00:45 04/05/25 00:45 04/05/25 00:23 04/05/25 00:45
<Kai Durand MD, Resident - Last Filed: 04/05/25 03:23>
*Pulse Oximetry
SaO2: 97
Oxygen Mode of Delivery: Room air
Patient hypoxic: no
*Critical Care Note
Total Time (30-74mins, 75-104mins- exclusive of procedures): 60
<Sarai Newby DO - Last Filed: 04/05/25 07:45>
*Critical Care Note
Total Time (30-74mins, 75-104mins- exclusive of procedures): Not Applicable
<Kai Durand MD, Resident - Last Filed: 04/05/25 03:23>
Update Note
Update Note:
Problem List:
diaphoresis
chest tightness
feeling hot during bowel movement
burning sensation mid chest
diarrhea
Plan:
troponins x 2
monitor vitals
Differential Diagnoses:
vasovagal response
angina
anxiety
panic attack
diarrhea secondary to antibiotic use
Radiology: not applicable
EKG: patient is in normal sinus rhythm on the monitor. EKG conducted on 04/04/2025 had the patient within normal sinus rhythm and normal EKG.
Labs:
First troponin negative
repeat troponin negative
Updates:
based on the patient's history and physical exam presentation it is likely the patient experienced a vasovagal episode while having a bowel movement on the toilet. The patient has a history of anxiety with panic attacks and has presented to the
emergency department for concerns of chest pain in the past. With negative troponins and current history along with EKG findings it is likely that he had a minor vasovagal episode without syncope while on the toilet.
patient given GI cocktail and Carafate for suspected GERD.
Both troponins negative
recommend continuing daily Protonix and famotidine. patient can also take Carafate at home
Patient is currently being followed by cardiology with Dr. Jimmie Franco. Patient also has a history of Busby's esophagus which may also explain the patient's mid epigastric burning sensation. Patient used to be in contact with gastroenterology
but his provider unfortunately retired recently. Will recommend that the patient follows up with gastroenterology and cardiology following discharge. Patient should follow-up with his primary care provider within 1 week following discharge.
patient improves improvement in pain after GI cocktail and Carafate.
Patient would like to be discharged from the emergency department. There are no barriers that would impede the patient being safely discharged.
ED Attending Note
<Kai Durand MD, Resident - Last Filed: 04/05/25 03:23>
-
Portions of this chart may have been created with voice recognition software.� Occasional wrong word or��sound alike� substitutions may have occurred due to the inherent limitations of voice recognition software.
<Sarai Newby DO - Last Filed: 04/05/25 07:45>
ED Attending Note
Patient seen and examined by attending physician: Yes
I performed a history and physical exam of patient and discussed management with resident, I reviewed resident's note and agree with documented findings and plan of care.: Yes
ED Attending Note:
The patient is a 39-year-old male who presented to the emergency department with chest pain. The pain began while the patient was sitting on the toilet, described as a burning sensation, without any straining involved. The patient did not feel like
he was going to pass out, but after moving to the living room, he experienced a panic attack. He measured his heart rate at 128 beats per minute and blood pressure at 165/101 mmHg using a wrist cuff prior to the arrival of EMS. The paramedics
reported an improved blood pressure of 122/77 mmHg during transport.
Upon evaluation in the ER, the patients electrocardiogram was normal, and initial cardiac enzyme tests did not indicate myocardial ischemia. The patient has a history of Barretts esophagus, but there was confusion about the current status. He has
not seen a analytic programmer in two years. A prior cardiac catheterization revealed no significant findings, and an exercise stress test from November 2023 was unremarkable. The patient experiences chest pain regularly but is uncertain if his previous
diagnosis of Barretts esophagus still stands. He reported that past endoscopic evaluations initially confirmed and later refuted the presence of Barretts esophagus.
The patient reported periodic chest pain episodes accompanied by significant acid reflux but distinguishes this episode as less severe than previous experiences. He noted extreme discomfort in the past, often described as musculoskeletal, causing
him to be unable to touch his chest, which is not the case with the current pain.
39-year-old obese gentleman appears his stated age, awake and alert, pleasant, easily communicative and in no acute distress.
Heart is regular rate and rhythm. No murmur nor rub.
Lungs are clear to auscultation. No chest wall tenderness.
Abdomen rotund, soft, nontender. No palpable masses. Normoactive bowel sounds.
The differential diagnosis includes, in no particular order and is not limited to:
1. Gastroesophageal reflux disease (GERD)
2. Musculoskeletal chest pain
3. Anxiety-induced chest pain
4. Esophageal spasm
5. Acute coronary syndrome
6. Peptic ulcer disease
7. Panic disorder
8. Costochondritis
9. Pericarditis
10. Aortic dissection
Overall well in appearance.
EKG is unremarkable and unchanged from previous.
Vital signs within normal limits.
Patient does have several risk factors for CAD including diabetes, hypertension, smoking.
However reassuring that he has had unremarkable cardiac testing in the past including unremarkable cardiac catheterization reportedly 2 to 3 years ago and unremarkable nuclear stress test November 2023.
Thus far labs are unremarkable including negative troponin.
Will plan to repeat troponin now and will trial a GI cocktail and Carafate for suspected GERD.
He admits that he currently does not follow with GI and has not been evaluated by analytic programmer for at least the past 2 years or more.
01:50
Patient reports moderate improvement in pain after GI cocktail and Carafate.
Troponin again is negative.
I suspect chest pain is acid reflux in nature.
Recommend he continue his daily Protonix and famotidine. He has Carafate at home which he can take 4 times daily as needed.
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
Return precautions discussed.
Discharge Plan
Departure
Patient Disposition: Home (Routine Discharge)
Date of Disposition: 04/05/25
Time of Disposition: 01:53
Patient with high blood pressure during this ER visit?: No
Condition: Good
Discharge Problem:
Acute chest pain, Chronic GERD
Instructions: Acid reflux and GERD in adults, Chest Pain NON-[facility] Corporate Lawyer Follow Up
Prescriptions:
No Action
hydrochlorothiazide 25 mg Tablet
25 mg PO DAILY Qty: 0
loratadine 10 MG tablet
10 mg PO DAILY
lorazepam 0.5 MG tablet
0.5 mg PO BIDPRN PRN (Reason: anxiety)
Patient Comments:
05/10/23 filled on 05/09/23 #10
irbesartan 300 mg Tablet
300 mg PO DAILY Qty: 0
metoprolol succinate [Toprol XL] 25 mg Tablet Extended Release 24 Hr
25 mg PO BID
fenofibrate nanocrystallized 145 mg Tablet
145 mg PO DAILY
acetaminophen 500 mg Tablet
1,000 mg PO Q6HPRN PRN (Reason: mild pain)
cholecalciferol (vitamin D3) [Vitamin D3] 125 mcg (5,000 unit) Tablet
125 mcg PO DAILY
fluticasone propionate [Flonase Allergy Relief] 50 mcg/actuation spray,suspension
1 spray intranasal DAILY Qty: 16 0RF
famotidine 20 mg Tablet
20 mg PO DAILY
pantoprazole [Protonix] 40 mg Tablet,Delayed Release (Dr/Ec)
40 mg PO DAILY
zinc 50 mg Capsule
50 mg PO DAILY
vilazodone
1 tab PO DAILY
clindamycin HCl [Cleocin HCl] 300 mg capsule
300 mg PO TID
ketorolac 10 mg tablet
10 mg PO Q8H 5 Days Qty: 15 0RF
lycibfzgfi-fdmqfdzzypnfk-kezu [Fioricet] 50-300-40 mg capsule
1 cap PO Q8H PRN (Reason: Pain) Qty: 10 0RF
clindamycin HCl 150 mg capsule
450 mg PO QID 10 Days Qty: 120 0RF
albuterol sulfate 2.5 mg/0.5 mL solution for nebulization
5 mg inhalation Q6H PRN (Reason: shortness of breath or wheezing) Qty: 30 0RF
pregabalin 100 mg capsule
100 mg PO BID Qty: 60 0RF
Referrals:
Mathieu Loyd MD [Primary Care Provider, Family Practice]
Lena Quinn MD [Active, Gastroenterology] - Call in 1-3 days for appt
Interventions
Interventions:
*Risk Screen - Suicide Last Done: 04/04/25 22:03
*General Assessment Last Done: 04/05/25 02:03
*Neglect/Abuse Screening Last Done: 04/04/25 22:03
*ED- Fall Risk Assessment Last Done: 04/05/25 02:03
*ED COVID-19 Vaccine History Last Done: 04/05/25 02:03
*Nursing Disposition Last Done: 04/05/25 02:05
ED- Cardiac Assessment Last Done: 04/04/25 23:48
Discharge Date and Time
Discharge Date/Time: 04/05/25 02:05
Print Language: YI
[2025-04-05 00:23] VITALS: BP 133/93
[2025-04-05] MEDS: MAALOX 50 PO (01:04)
[2025-04-05] MEDS: CARAFATE SUSPENSION 1 GM PO (01:04)
[2025-04-05 01:07] LABS: Troponin I < 0.012 ng/ml
== END 2025-04-05 02:05 | disposition home or self-care (01) ==
LOC: EMR 22:01
PROVIDERS: Emergency Medicine; EMERGENCY PHYSICIAN Emergency Medicine; PRIMARYCARE PHYSICIAN Family Medicine
DX: R07.9 Chest pain, unspecified (principal); K21.9 Gastro-esophageal reflux disease without esophagitis; E11.9 Type 2 diabetes mellitus without complications; E78.00 Pure hypercholesterolemia, unspecified; F17.210 Nicotine dependence, cigarettes, uncomplicated; F17.290 Nicotine dependence, other tobacco product, uncomplicated; I10 Essential (primary) hypertension; J45.909 Unspecified asthma, uncomplicated; Z86.718 Personal history of other venous thrombosis and embolism
CPT/HCPCS: 99284; 80053; 84484; 85025; 93005

== ENCOUNTER 2025-07-06 04:20 | Emergency (ER) | payer OTHER, SELFPAY ==
[2025-07-06 04:21] VITALS: BMI 39.3
[2025-07-06 04:23] VITALS: BP 135/88
--- NOTE | 2025-07-06 04:32 | ED.GENMED ---
History of Present Illness
General
Chief Complaint: Flank Pain
Time Seen by Provider: 07/06/25 04:32
History of Present Illness
History of Present Illness:
FOCUSED PAST MEDICAL HISTORY
- Gastritis, diabetes, anxiety/depression
REVIEW OF OLD RECORDS
- Patient was seen here with chest pain in March and also had back pain in March
Note:
CHIEF COMPLAINT(S)
- Right-sided back pain
HISTORY OF PRESENT ILLNESS
The patient is a 40-year-old male who presents with right-sided back pain, which began a few days ago and has been gradually increasing in severity over the past three days. On the first day, the pain was sudden and severe, raising suspicion for a
potential kidney stone, though the patient has no past history of kidney stones. The pain does not seem to be alleviated by coughing, laughing, or movement, and the patient describes it as musculoskeletal in nature. There is no presence of
hematuria. The patient notes that the pain worsens with physical movement. The patient has experienced nausea and diarrhea prior to presenting but does not complain of vomiting or dehydration. The patient is diabetic and diligently monitors his
condition, expressing concern over kidney-related issues due to diabetes.
CHRONIC MEDICAL CONDITIONS SIGNIFICANTLY AFFECTING CARE
- Hypertrophic cardiomyopathy (patient�s heart races often)
- Diabetes mellitus
SOCIAL HISTORY
- No smoking habits mentioned.
MEDICATIONS
- Metoprolol (for heart condition)
- Additional unspecified heart medications
REVIEW OF SYSTEMS
- Musculoskeletal: Right-sided back pain, exacerbated by movement.
- Gastrointestinal: Diarrhea and nausea.
- Urinary: No hematuria.
PHYSICAL EXAM
General: Alert, but appears slightly uncomfortable
Skin: Warm, dry.
Head: Normocephalic, atraumatic.
Neck: Supple, trachea midline.
Eyes, Ears, Nose, and Throat: Oral mucosa moist.
Cardiovascular: Normal peripheral perfusion, no edema.
Respiratory: Respirations are non-labored.
Gastrointestinal: Abdomen nondistended, tenderness upon palpation. No right upper quadrant tenderness
Back: Normal range of motion, normal alignment; minimal if any significant tenderness inferior to the right CVA region
Musculoskeletal: Normal ROM, tenderness on the right side of the back.
Neurological: Alert and oriented to person, place, time, and situation, no focal neurological deficit observed.
Psychiatric: Cooperative, appropriate mood & affect.
PROBLEM LIST
Acute:
- Right-sided back pain, possibly musculoskeletal in origin
- Diarrhea and nausea
Chronic:
- Hypertrophic cardiomyopathy
- Diabetes mellitus
PLAN
1. Perform a Computed Tomography (CT) scan to rule out kidney stones or other renal pathology.
2. Conduct a urinalysis to check for blood or infection in urine.
3. Monitor vital signs and reassess the need for intravenous fluids or medications, considering the patients preference to avoid them at this time.
DIFFERENTIAL DIAGNOSIS
The Differential Diagnosis includes, in no particular order and is not limited to:
1. Musculoskeletal pain
2. Nephrolithiasis (kidney stones)
3. Pyelonephritis
4. Urinary Tract Infection (UTI)
5. Appendicitis
6. Diverticulitis
7. Gallstones
8. Pancreatitis
9. Abdominal aortic aneurysm
10. Gastroenteritis
Disposition:
SUMMARY OF ENCOUNTER
The patient was seen in the emergency department for right-sided back pain that began a few days ago. A CT scan was performed, which revealed no significant kidney stones on the right side, but a stone inside the left kidney was identified. The
patient had concerns about potential kidney involvement due to recent increased pain intensity. Further assessment indicated that the pain was likely musculoskeletal in nature. There was no sign of gallbladder inflammation or infection, and no signs
of urinary tract infection were noted, except for a minimal presence of blood in the urine. The patients diabetes and heart condition were considered in the management strategy. Although naproxen was considered, due to the patients heart condition,
the use of Motrin was limited, and tramadol was preferred for pain management.
ASSESSMENT
The most likely diagnosis is musculoskeletal back pain. The presence of a kidney stone on the left side is noted; however, it is not believed to be the cause of the current symptoms.
PLAN
1. Prescribe tramadol for pain management while being mindful of the patients heart condition and concerns regarding the use of NSAIDs.
2. Consider alternative pain management strategies in case tramadol proves ineffective.
3. Monitor the patients symptoms and recommend follow-up with a primary care provider or specialist if necessary.
4. Educate the patient on managing musculoskeletal pain and any potential warning signs of kidney stones; advise him to maintain good hydration and watch for increased pain or changes in urinary habits.
INDEPENDENT REVIEW OF LABS AND INTERPRETATION OF TESTS
My independent review of the CT scan shows a stone in the left kidney with no stones in the right ureter that would explain the right-sided pain.
PATIENT EDUCATION AND COUNSELING
The patient was advised on pain management strategies, the signs of kidney stones, particularly the implications of the identified stone in the left kidney, and how to differentiate between musculoskeletal pain and other conditions such as a
possible renal issue.
FOLLOW-UP INSTRUCTIONS
The patient is advised to contact their primary care provider or a specialist if symptoms worsen or if they experience new symptoms that do not resolve with the current management plan.
MEDICATION RECONCILIATION
A prescription for tramadol was provided to address the patients pain while considering his other medical conditions. Naproxen was considered but not recommended due to potential cardiac concerns.
MEDICAL DECISION MAKING
1. Number and Complexity of Problems Addressed: Chronic conditions affecting care [Hypertrophic cardiomyopathy, Diabetes mellitus]. The differential diagnosis considered includes musculoskeletal pain, nephrolithiasis, pyelonephritis, urinary tract
infection, appendicitis, diverticulitis, gallstones, pancreatitis, abdominal aortic aneurysm, and gastroenteritis.
2. Data:
- Category 1: CT scan reviewed and indicated a kidney stone in the left kidney; urinalysis showed minimal blood but no infection.
3. Risk: Prescription medication management considered, with a decision to prescribe tramadol while monitoring because of the patients cardiac concerns.
DIAGNOSIS
1. Musculoskeletal back pain - M54.5
2. Nephrolithiasis, left kidney (asymptomatic) - N20.0
RADIOLOGY
- CAT scan of the abdomen pelvis incidentally shows a left intrarenal stone with no stones noted on the right side, gallstone was noted however he has no right upper quadrant tenderness
UPDATE
- We talked about maybe some intermittent use of NSAIDs
- Gave prescription for Percocet
- No right upper quadrant tenderness
Past History
Past History
ED Past Medical History: Asthma, GERD, HTN, Hypercholesterolemia, Psychiatric (Anxiety, Depression. Panic attacks) and Other (Obesity, Barrets esophagus, Gastritis, IBS, Cerebral hematoma, DVT)
ED Past Surgical History: Brain, Cardiac (Cardiac catheterization 2 years ago that was normal) and Other (Craniotomy for subdural hematoma)
Patient has exhibited threatening behavior?: No
PSI?: No
Social History
Tobacco: Smoker
Alcohol: Occasional
Drug: Former user (Opiates, cocaine) and Marijuana
Personal: Single
Living: with family
Employment: Employed
Family History
Family History: Diabetes, Hypertension and CAD (Grandmother with triple bypass); Negative Early CAD
Phy Exam
Physical Exam
Physical Exam:
See HPI
Course
Orders/Labs/Results
Orders:
Orders
07/06/25 04:46
CT Abd/pel Without Iv Or Oral Urgent
Comment:
Reason For Exam: R flank pain
07/06/25 04:54
Urinalysis Reflex To Culture Urgent
Date Specimen was Collected: 07/06/25
Time Specimen was Collected: 04:54
Urine Microscopic Reflex Cult Urgent
Abnormal Lab Results
07/06/25
04:54
Ur Occult Blood Reflex 1+ A
(Negative)
Urine Glucose 2+ A
(Negative)
Urine Albumin (Reflex) 1+ A
(Neg - Trace)
Vital Signs
Initial and Last Documented VS:
Initial Vital Signs
Temp Pulse Resp BP Pulse Ox
36.3 C 84 18 135/88 97
07/06/25 04:23 07/06/25 04:23 07/06/25 04:23 07/06/25 04:23 07/06/25 04:23
Last Documented Vital Signs
Temp Pulse Resp BP Pulse Ox
37.1 C 83 16 130/81 95
07/06/25 06:10 07/06/25 06:10 07/06/25 06:10 07/06/25 06:10 07/06/25 06:10
*Pulse Oximetry
SaO2: 97
Oxygen Mode of Delivery: Room air
Patient hypoxic: no
*Critical Care Note
Total Time (30-74mins, 75-104mins- exclusive of procedures): Not Applicable
ED Attending Note
-
Portions of this chart may have been created with voice recognition software.� Occasional wrong word or��sound alike� substitutions may have occurred due to the inherent limitations of voice recognition software.
Discharge Plan
Departure
Patient Disposition: Home (Routine Discharge)
Date of Disposition: 07/06/25
Time of Disposition: 06:00
Patient with high blood pressure during this ER visit?: Yes
Discharge Problem:
Back pain
Instructions: Flank Pain (DC), BLOOD PRESSURE
Prescriptions:
New
hydrocodone-acetaminophen 5-325 mg tablet
1 - 2 tab PO BID PRN (Reason: Pain) Qty: 14 0RF
No Action
hydrochlorothiazide 25 mg Tablet
25 mg PO DAILY Qty: 0
loratadine 10 MG tablet
10 mg PO DAILY
lorazepam 0.5 MG tablet
0.5 mg PO BIDPRN PRN (Reason: anxiety)
Patient Comments:
05/10/23 filled on 05/09/23 #10
irbesartan 300 mg Tablet
300 mg PO DAILY Qty: 0
metoprolol succinate [Toprol XL] 25 mg Tablet Extended Release 24 Hr
25 mg PO HS
fenofibrate nanocrystallized 145 mg Tablet
145 mg PO DAILY
acetaminophen 500 mg Tablet
1,000 mg PO Q6HPRN PRN (Reason: mild pain)
cholecalciferol (vitamin D3) [Vitamin D3] 125 mcg (5,000 unit) Tablet
125 mcg PO DAILY
fluticasone propionate [Flonase Allergy Relief] 50 mcg/actuation spray,suspension
1 spray intranasal DAILY Qty: 16 0RF
famotidine 20 mg Tablet
20 mg PO DAILY
pantoprazole [Protonix] 40 mg Tablet,Delayed Release (Dr/Ec)
40 mg PO DAILY
zinc 50 mg Capsule
50 mg PO DAILY
vilazodone
1 tab PO DAILY
albuterol sulfate 2.5 mg/0.5 mL solution for nebulization
5 mg inhalation Q6H PRN (Reason: shortness of breath or wheezing) Qty: 30 0RF
pregabalin 100 mg capsule
100 mg PO BID Qty: 60 0RF
metoprolol succinate 50 mg Tablet Extended Release 24 Hr
50 mg PO DAILY
Rx Instructions:
in addition to 25mg QHS
Mounjaro 5 mg/0.5 mL Pen Injector
5 mg SC QWEEK
Referrals:
Mathieu Loyd MD [Family Provider, Family Practice]
Bianca Liang MD [Active, Urology]
Activity Restrictions/Additional Instructions:
The urinalysis shows a small amount of blood but no sign of infection. The CAT scan shows no acute abnormal findings but does show some gallstones with no sign of gallbladder infection. Incidentally there is a nonobstructing stone within the left
kidney�this should not be the cause of your pain. There were no kidney stones noted on the right side. I am sending a prescription for Vicodin to your pharmacy.
Interventions
Interventions:
*Risk Screen - Suicide Last Done: 07/06/25 04:23
*General Assessment Last Done: 07/06/25 05:07
*Neglect/Abuse Screening Last Done: 07/06/25 04:23
*ED COVID-19 Vaccine History Last Done: 07/06/25 05:06
*ED Influenza Vaccine History Last Done: 07/06/25 05:06
[facility] Fall Risk Assessment Tool Last Done: 07/06/25 04:21
*Nursing Disposition Last Done: 07/06/25 06:20
YN-Pdibgk-Wxssxulcsh Assessment Last Done: 07/06/25 05:26
ED-Male Genitourinary Assessment Last Done: 07/06/25 05:26
Discharge Date and Time
Discharge Date/Time: 07/06/25 06:20
Print Language: MALAY
[2025-07-06 05:10] LABS: Urine Character Clear (Clear)
[2025-07-06 06:10] VITALS: BP 130/81
[2025-07-06 06:27] LABS: Urine Red Blood Cell 0-2 /HPF (0-2); Urine White Cell 0-2 /HPF (0-5)
== END 2025-07-06 06:20 | disposition home or self-care (01) ==
LOC: EMR 04:20
PROVIDERS: EMERGENCY PHYSICIAN Emergency Medicine; FAMILY PHYSICIAN Family Medicine
DX: M54.9 Dorsalgia, unspecified (principal); I42.2 Other hypertrophic cardiomyopathy; E11.9 Type 2 diabetes mellitus without complications; E78.00 Pure hypercholesterolemia, unspecified; I10 Essential (primary) hypertension; J45.909 Unspecified asthma, uncomplicated; F17.200 Nicotine dependence, unspecified, uncomplicated
CPT/HCPCS: 99284; 74176; 81003; 81015